=== PATIENT | male | born 1970 | race African-American/Black ===

== ENCOUNTER 2018-01-26 05:59 | Outpatient (CLI) | payer OTHER ==
[~2018-01-26] VITALS: Ht 175.3 cm; Wt 106.6 kg
[~2018-01-26 05:59] MED LIST: LISI5TAB PO
[2018-01-26] MEDS ORDERED: TRAM50TA2 PO (16:04)
[2018-01-26] MEDS ORDERED: GABA-488 PO (16:04)
== END 2018-01-26 16:07 ==
LOC: PREOP 05:59
PROVIDERS: ATTEND Surgery
DX: Z01.818 Encounter for other preprocedural examination (principal); Z12.11 Encounter for screening for malignant neoplasm of colon

== ENCOUNTER 2018-02-05 11:24 | Day surgery (SDC) | payer OTHER ==
[~2018-02-05 11:24] MED LIST changes: +GABA-488 PO; +TRAM50TA2 PO
--- OUTSIDE RECORDS SUMMARY | 2018-02-05 11:29 | XMS REPORT ---
Author Author PJ Funk Organization [facility] Address [address] [place] [address] Care Team Providers Care Graphics Production Specialist Name Role Phone Good PJ Unavailable PROBLEMS Type Condition ICD9-CM Code ZTV81-UN Code Onset Dates Condition Status SNOMED Code Problem Tobacco dependence F17.200 Active 35527149 Problem Chronic pain G89.29 Active 56135271 Problem Bilateral headaches R51 Active 743070924 Problem IBS (irritable bowel syndrome) K58.9 Active 20563280 Problem Rectal irritation K62.89 Active 54282808 Problem Herniation of intervertebral disc between L4 and L5 M51.26 Active 596234085 Problem Depression F32.9 Active 64141380 ALLERGIES Substance Reaction Event Type Date Status Codeine Unknown Drug Allergy Apr, Active ENCOUNTERS Encounter Location Date Diagnosis [facility] [address] [address] Dec, Chronic pain G89.29 [facility] [id number] [place] [address]77- [address] Dec, [facility] [id number] [place] [address] 27145- 3[address] Dec, Chronic pain G89.29 [facility] [id number] [place] [address]231- 4160 Nov, Chronic pain G89.29 [facility] [address] [address] Nov, [facility] [address] [address] Nov, IBS (irritable bowel syndrome) K58.9 ; Rectal irritation K62.89 and Chronic pain G89.29 [facility] [address] [address] Oct, Chronic pain G89.29 and IBS (irritable bowel syndrome) K58.9 [facility] [id number] [place] [address] 64952- 3684 Sep, Chronic pain G89.29 [facility] [id number] [place] [address]51- 69[address] Sep, Chronic pain G89.29 [facility] [id number] [place] [address]- [address] Aug, Chronic pain G89.29 [facility] [id number] [place] [address] 90862- 44[address] Jul, Chronic pain G89.29 [facility] [id number] [place] [address]14- [address] Jun, Chronic pain G89.29 [facility] [id number] [place] [address]- 98[address] May, Herniation of intervertebral disc between L4 and L5 M51.26 and Over weight E66.3 [place] [id number] [place] [address]- 1152 Apr, Over weight E66.3 [facility] [id number] [place] [address] 01329- [address] Apr, IBS (irritable bowel syndrome) K58.9 ; Depression F32.9 ; Herniation of intervertebral disc between L4 and L5 M51.26 and Bilateral headaches R51 [facility] [address] [address] Apr, [facility] [id number] [place] [address] 80307- 9[address] Apr, [facility] [address] [address] Dec, Herniation of intervertebral disc between L4 and L5 M51.26 and Depression F32.9 [facility] [id number] [place] [address]00- [address] Nov, Herniation of intervertebral disc between L4 and L5 M51.26 and IBS (irritable bowel syndrome) K58.9 [facility] [id number] [place] [address] 08476- 9[address] Oct, [facility] [address] [address] Aug, Physical exam Z00.00 ; IBS (irritable bowel syndrome) K58.9 ; Depression F32.9 and Herniation of intervertebral disc between L4 and L5 M51.26 [place] [place] [id number] [place] [address] 50112- 5708 Aug, Depression F32.9 [place] [address] [address] Jul, [facility] [address] [address] Jun, IBS (irritable bowel syndrome) K58.9 ; Depression F32.9 ; Herniation of intervertebral disc between L4 and L5 M51.26 and Bilateral headaches R51 [facility] [id number] [place] [address] 43270- 5[address] March, Chronic pain G89.29 [facility] [id number] [place] [address] 24424- 4747 Jan, Chronic pain G89.29 [facility] [id number] [place] [address] 23162- 07[address] Jan, [facility] [address] [address] Jan, [facility] [id number] [place] [address] 76472- 4183 Dec, IBS (irritable bowel syndrome) K58.9 ; Depression F32.9 and Herniation of intervertebral disc between L4 and L5 M51.26 [facility] [address] [address] Dec, [facility] [id number] [place] [address] 18032- 3945 Dec, [facility] [id number] [place] [address] 13087- 6705 Dec, [facility] [id number] [place] [address] 66699- 0976 Dec, [facility] [id number] [place] [address] 21062- 0707 Nov, [facility] [id number] [place] [address] 22990- 4390 Nov, [facility] [id number] [place] [address] 48532- [address] Nov, [facility] [id number] [place] [address] 85061- 4557 Nov, Heavy tobacco smoker >10 cigarettes per day F17.210 [facility] [id number] [place] [address] 53550- 3[address] Nov, Chronic pain G89.29 [facility] [id number] [place] [address] 77972- 2877 Nov, [facility] [id number] [place] [address] 30037- 8480 Oct, [facility] [address] [place] [address] 46658- 4611 Oct, [facility] [id number] [place] [address] 48779- 2892 Oct, Pilonidal cyst without mention of abscess 685.1 ; IBS ( irritable bowel syndrome) K58.9 ; Rectal irritation K62.89 and Depression F32.9 [facility] [id number] [place] [address] 52740- 9807 Oct, [facility] [address] [address] Sep, [facility] [id number] [place] [address] 942413- 8414 Sep, [facility] [id number] [place] [address] 008546- 5242 Sep, IBS (irritable bowel syndrome) K58.9 and Rectal irritation K62.89 [facility] [id number] [place] [address] 77486- [address] Jan, [facility] [id number] [place] [address] 23942- 9718 Jan, [facility] [id number] [place] [address] 25613- 9012 Dec, [facility] [id number] [place] [address] 26458- 7663 Dec, [facility] [id number] [place] [address] 64695- 9250 Dec, [facility] [id number] [place] [address] 05692- 5064 Nov, [facility] [id number] [place] [address] 68790- 6375 Aug, IMMUNIZATIONS No Known Immunizations SOCIAL HISTORY Never Assessed REASON FOR VISIT Pain management (chronic)_ PT says today is just a normal check up, he has concerns because since he stopped smoking he cant seem to stop eating and is gaining weight(8 months or so)- Fatimah VILLATORO PLAN OF CARE Activity Details Follow Up 3 Months Reason:ibs, htn, depresioin VITAL SIGNS Height 70 in 2017-04-24 Weight 236.8 lbs 2017-04-24 Temperature 97.5 degrees Fahrenheit 2017-04-24 Heart Rate 62 bpm 2017-04-24 Respiratory Rate 18 2017-04-24 BMI 33.97 kg/m2 2017-04-24 Blood pressure systolic 124 mmHg 2017-04-24 Blood pressure diastolic 78 mmHg 2017-04-24 MEDICATIONS Medication Instructions Dosage Frequency Start Date End Date Duration Status Bentyl 20 MG Orally Four times a day 1 tablet 6h Active BuPROPion HCl ER (SR) 150 MG TAKE TWO TABLETS BY MOUTH ONCE DAILY Active Tramadol HCl 50 mg Orally 3 times a day 1 tablet as needed 8h Active Gabapentin 300 MG Orally 2 times a day 1 capsule 12h Active Wellbutrin SR 300 Orally Once a day 1 tablet 24h Nov, 30 days Active Lomotil 2.5-0.025 MG Orally Four times a day 1 tablet as needed 6h Dec, Active RESULTS No Results PROCEDURES No Known procedures INSTRUCTIONS MEDICATIONS ADMINISTERED No Known Medications MEDICAL (GENERAL) HISTORY Type Description Date Medical History Irritable bowel syndrome without diarrhea Medical History Hypertension Surgical History bilat knee replacement 2008 Surgical History anal fissure 2006 Surgical History appendectomy 2006 Surgical History inguinal hernia repair 1988
--- OUTSIDE RECORDS SUMMARY | 2018-02-05 11:29 | XMS REPORT ---
Author HERBERT Aragon Organization [employer] Address Unknown Phone Unavailable Care Team Providers Care Surgery Assistant Name Role Phone HERBERT MONTOYA CP Unavailable Allergies No Known Allergies Problems Problem Type Condition Code Onset Dates Condition Status Problem IBS (irritable bowel syndrome) K58.9 Active Problem Rectal irritation K62.89 Active Problem Depression F32.9 Active Problem Cellulitis and abscess of unspecified site 682.9 Active Problem Pilonidal cyst without mention of abscess 685.1 Active Medications Medication Code System Code Instructions Start Date End Date Status Dosage Anusol-HC [facility] [address]-03 25 MG Rectal Twice a day Oct 24, 2015 Dec 05, 2015 1 suppository Results No Known Results Summary Purpose [employer] Submission
--- OUTSIDE RECORDS SUMMARY | 2018-02-05 11:29 | XMS REPORT ---
Author PJ Yee Organization [employer] Address Unknown Phone Unavailable Care Team Providers Care Printer'S Assistant Name Role Phone PJ TORRES CP Unavailable Allergies No Known Allergies Problems Problem Type Condition Code Onset Dates Condition Status Problem IBS (irritable bowel syndrome) K58.9 Active Problem Rectal irritation K62.89 Active Problem Depression F32.9 Active Problem Tobacco dependence F17.200 Active Problem Cellulitis and abscess of unspecified site 682.9 Active Problem Pilonidal cyst without mention of abscess 685.1 Active Medications Medication Code System Code Instructions Start Date End Date Status Dosage Bentyl [facility] [address]-88 20 MG Orally Four times a day 1 tablet Results No Known Results Summary Purpose [employer] Submission
--- OUTSIDE RECORDS SUMMARY | 2018-02-05 11:29 | XMS REPORT ---
Author PJ Yee [facility] [employer] Address Unknown Phone Unavailable Care Team Providers Care Rand Maker Name Role Phone PJ TORRES CP Unavailable Allergies, Adverse Reactions, Alerts Substance Reaction Event Type Codeine Info Not Available Drug Allergy Problems Problem Type Condition Code Onset Dates Condition Status Assessment IBS (irritable bowel syndrome) K58.9 Active Problem Tobacco dependence F17.200 Active Assessment Physical exam Z00.00 Active Assessment Herniation of intervertebral disc between L4 and L5 M51.26 Active Assessment Depression F32.9 Active Problem Herniation of intervertebral disc between L4 and L5 M51.26 Active Problem Depression F32.9 Active Problem Bilateral headaches R51 Active Problem Cellulitis and abscess of unspecified site 682.9 Active Problem Pilonidal cyst without mention of abscess 685.1 Active Problem IBS (irritable bowel syndrome) K58.9 Active Problem Rectal irritation K62.89 Active Medications Medication Code System Code Instructions Start Date End Date Status Dosage Gabapentin [facility] 65796117729 300 MG Orally 2 times a day 1 capsule Lomotil [facility] [address]-73 2.5-0.025 MG Orally Four times a day January 18, 2016 1 tablet as needed Cyclobenzaprine HCl [facility] [address]-11 10 mg Orally at hs Jun 27, 2016 Sep 25, 2016 1 tablet Tramadol HCl [facility] [address]-54 50 mg Orally 3 times a day 1 tablet as needed BuPROPion HCl (SR) [facility] 29926247295 150 MG TAKE TWO TABLETS BY MOUTH ONCE DAILY Bentyl [facility] 72782683684 20 MG Orally Four times a day 1 tablet Procedures Procedure Coding System Code Date VISUAL ACUITY SCREEN CPT-4 32759 Aug 29, 2016 Office Visit, Est Pt., Level 4 CPT-4 53560 Aug 29, 2016 AUDIOMETRY-SCREEN CPT-4 72022 Aug 29, 2016 Vital Signs Date/Time: Aug 29, 2016 Cardiac Monitoring Heart Rate 80 bpm Weight 218.8 lbs Height 70 in Hearing Comments:Passed whisper test on both ears. P / L BMI 31.39 Index Blood Pressure Diastolic 88 mmHg Blood Pressure Systolic 120 mmHg Results No Known Results Summary Purpose [employer] Submission
--- OUTSIDE RECORDS SUMMARY | 2018-02-05 11:29 | XMS REPORT ---
Author PJ Yee [facility] [employer] Address Unknown Phone Unavailable Care Team Providers Care Car Mechanic Helper Name Role Phone PJ TORRES CP Unavailable Allergies No Known Allergies Problems Problem Type Condition Code Onset Dates Condition Status Problem Rectal irritation K62.89 Active Problem Cellulitis and abscess of unspecified site 682.9 Active Problem IBS (irritable bowel syndrome) K58.9 Active Problem Pilonidal cyst without mention of abscess 685.1 Active Medications Medication Code System Code Instructions Start Date End Date Status Dosage Tramadol HCl [facility] [address]-42 50 MG Orally every 6 hrs 1 tablet as needed Results No Known Results Summary Purpose [employer] Submission
--- OUTSIDE RECORDS SUMMARY | 2018-02-05 11:30 | XMS REPORT ---
Author PJ Yee [facility] [employer] Address Unknown Phone Unavailable Care Team Providers Care Goodwill Representative Name Role Phone PJ TORRES CP Unavailable Allergies No Known Allergies Problems Problem Type Condition Code Onset Dates Condition Status Problem IBS (irritable bowel syndrome) K58.9 Active Problem Rectal irritation K62.89 Active Problem Depression F32.9 Active Assessment Chronic pain G89.29 Active Problem Cellulitis and abscess of unspecified site 682.9 Active Problem Pilonidal cyst without mention of abscess 685.1 Active Medications No Known Medications Procedures Procedure Coding System Code Date No Charge CPT-4 67039 Nov 09, 2015 Results No Known Results Summary Purpose [employer] Submission
--- OUTSIDE RECORDS SUMMARY | 2018-02-05 11:30 | XMS REPORT ---
Author PJ Yee [facility] [employer] Address Unknown Phone Unavailable Care Team Providers Care Legal Paraprofessional Name Role Phone PJ TORRES Unavailable Allergies No Known Allergies Problems Problem [...] Instructions Start Date End Date Status Dosage Wellbutrin SR [facility] [address]-72 300 Orally Once a day Nov 14, 2015 1 tablet Results No Known Results Summary Purpose [employer] Submission
--- OUTSIDE RECORDS SUMMARY | 2018-02-05 11:30 | XMS REPORT ---
Author Author PJ TORRES Organization [facility] Address [address] [place] [address] Care Team Providers Care Healthcare Administrative Assistant Name Role Phone PJ TORRES Unavailable PROBLEMS Type Condition ICD9-CM Code VAM16-WB Code Onset Dates Condition Status SNOMED Code Problem Tobacco dependence F17.200 Active 25131890 Problem Chronic pain G89.29 Active 04203610 Problem Bilateral headaches R51 Active 047214612 Problem IBS (irritable bowel syndrome) K58.9 Active 10582715 Problem Rectal irritation K62.89 Active 08424664 Problem Herniation of intervertebral disc between L4 and L5 M51.26 Active 447991309 Problem Depression F32.9 Active 51381449 ALLERGIES No Information SOCIAL HISTORY Never Assessed PLAN OF CARE VITAL SIGNS MEDICATIONS Medication Instructions Dosage Frequency Start Date End Date Duration Status Gabapentin 300 MG Orally 2 times a day 1 capsule 12h 30 Active Tramadol HCl 50 mg Orally 3 times a day 1 tablet as needed 8h 28 days Active RESULTS No Results PROCEDURES No Known procedures IMMUNIZATIONS No Known Immunizations MEDICAL (GENERAL) HISTORY Type Description Date Medical History Irritable bowel syndrome without diarrhea Medical History Hypertension Surgical History bilat knee replacement 2008 Surgical History anal fissure 2006 Surgical History appendectomy 2006 Surgical History inguinal hernia repair 1988
--- OUTSIDE RECORDS SUMMARY | 2018-02-05 11:30 | XMS REPORT ---
Author PJ Yee [facility] [employer] Address Unknown Phone Unavailable Care Team Providers Care Induction Machine Setter Name Role Phone PJ TORRES CP Unavailable Allergies, Adverse Reactions, Alerts Substance Reaction Event Type Codeine Info Not Available Drug Allergy Problems Problem Type Condition Code Onset Dates Condition Status Assessment Rectal irritation K62.89 Active Assessment Depression F32.9 Active Problem IBS (irritable bowel syndrome) K58.9 Active Problem Rectal irritation K62.89 Active Problem Depression F32.9 Active Assessment Pilonidal cyst without mention of abscess 685.1 Active Assessment IBS (irritable bowel syndrome) K58.9 Active Problem Cellulitis and abscess of unspecified site 682.9 Active Problem Pilonidal cyst without mention of abscess 685.1 Active Medications Medication Code System Code Instructions Start Date End Date Status Dosage Flagyl [facility] [address]-41 500 MG Orally every 8 hrs Oct 19, 2015 Oct 26, 2015 1 tablet Bentyl [facility] [address]-93 20 MG Orally Four times a day 1 tablet Lisinopril [facility] [address]-56 5 mg Nov 25, 2012 take 1 tablet (5 mg ) by oral route once daily Tylenol [facility] [address]-07 325 MG Orally every 6 hrs 1 tablet as needed Tramadol HCl [facility] [address]-78 50 MG Orally every 6 hrs 1 tablet as needed Celexa [facility] [address]-34 20 MG Orally Once a day Oct 19, 2015 1 tablet Anusol-HC [facility] [address]-66 2.5 % Rectal Twice a day Oct 19, 2015December 1 application to affected area Procedures Procedure Coding System Code Date COMPREHEN METABOLIC PANEL CPT-4 51566 Oct 19, 2015 ASSAY THYROID STIM HORMONE CPT-4 30512 Oct 19, 2015 COMPLETE CBC W/AUTO DIFF WBC CPT-4 51425 Oct 19, 2015 URINALYSIS, AUTO, W/O SCOPE CPT-4 95140 Oct 19, 2015 Office Visit, Est Pt., Level 4 CPT-4 65253 Oct 19, 2015 VENIPUNCT, ROUTINE* CPT-4 65757 Oct 19, 2015 Vital Signs Date/Time: Oct 19, 2015 Temperature 96.2 F Weight 198.8 lbs Height 69 in BMI 29.35 Index Blood Pressure Diastolic 80 mmHg Blood Pressure Systolic 130 mmHg Cardiac Monitoring Heart Rate 78 bpm Results Name Result Date Reference Range Unit Abnormality Flag TSH ----TSH 1.800 [id number] 0.450-4.500 uIU/mL CBC ----Basos 1 83726181 % ----MCV 85 42209809 79-97 fL ----Hematocrit 39.4 71409253 37.5-51.0 % ----Eos 3 49776505 % ----MCHC 32.2 23359399 31.5-35.7 g/dL ----Monocytes 5 20151019 % ----MCH 27.3 19106268 26.6-33.0 pg ----Lymphs 44 37432487 % ----Eos (Absolute) 0.2 29054121 0.0-0.4 x10E3/uL ----WBC 9.1 56804096 3.4-10.8 x10E3/uL ----Monocytes(Absolute) 0.5 62593350 0.1-0.9 x10E3/uL ----Lymphs (Absolute) 4.0 90021582 0.7-3.1 x10E3/uL H ----Hemoglobin 12.7 17259782 12.6-17.7 g/dL ----Neutrophils (Absolute) 4.3 73221572 1.4-7.0 x10E3/uL ----RBC 4.66 57953947 4.14-5.80 x10E6/uL ----Immature Grans (Abs) 0.0 04696980 0.0-0.1 x10E3/uL ----Immature Granulocytes 0 62533014 % ----Neutrophils 47 98159089 % ----Baso (Absolute) 0.1 80330744 0.0-0.2 x10E3/uL ----RDW 14.1 99688000 12.3-15.4 % ----Platelets 490 20151019 150-379 x10E3/uL H UA LONG DIP (IN HOUSE) ----LIZETT Negative 20151019 ----NIT Negative 20151019 ----Exp date [id number] ----Lot # [id number] ----SG >=1.030 20151019 ----KET Negative 20151019 ----LEE Negative 20151019 ----GLU Negative 20151019 ----Odor Slight 20151019 ----pH 5.5 20151019 ----BLO Negative 20151019 ----URO 2.0 E.U./dL 20151019 ----Protein Negative 20151019 ----Lot # [id number] ----Exp date [id number] ----Clarity Clear 20151019 ----Color [place] [id number] ROUTINE VENIPUNCTURE CMP ----Potassium, Serum 4.3 20151019 3.5-5.2 mmol/L ----Sodium, Serum 141 20151019 134-144 mmol/L ----BUN/Creatinine Ratio 6 20151019 9-20 L ----eGFR If Africn Am 101 [id number] >59 mL/min/1.73 ----eGFR If NonAfricn Am 88 [id number] >59 mL/min/1.73 ----Creatinine, Serum 1.02 20151019 0.76-1.27 mg/dL ----BUN 6 20151019 6-24 mg/dL ----Glucose, Serum 79 20151019 65-99 mg/dL ----AST (SGOT) 13 20151019 0-40 IU/L ----Globulin, Total 2.7 20151019 1.5-4.5 g/dL ----ALT (SGPT) 6 20151019 0-44 IU/L ----A/G Ratio 1.5 20151019 1.1-2.5 ----Bilirubin, Total 0.6 20151019 0.0-1.2 mg/dL ----Alkaline Phosphatase, S 58 20151019 39-117 IU/L ----Carbon Dioxide, Total 28 36293516 18-29 mmol/L ----Calcium, Serum 9.2 20151019 8.7-10.2 mg/dL ----Protein, Total, Serum 6.7 20151019 6.0-8.5 g/dL ----Albumin, Serum 4.0 20151019 3.5-5.5 g/dL ----Chloride, Serum 99 20151019 97-108 mmol/L Summary Purpose eClinicalWorks Submission
--- OUTSIDE RECORDS SUMMARY | 2018-02-05 11:30 | XMS REPORT ---
Author PJ Yee [facility] [employer] Address Unknown Phone Unavailable Care Team Providers Care Qi Specialist Name Role Phone PJ TORRES CP Unavailable [...] Date Status Dosage Tramadol HCl [facility] [address]-00 50 MG Orally every 6 hrs 1 tablet as needed Results No Known Results Summary Purpose [employer]ClinicalWorks Submission
--- OUTSIDE RECORDS SUMMARY | 2018-02-05 11:30 | XMS REPORT ---
Author PJ Yee Organization [employer] Address Unknown Phone Unavailable Care Team Providers Care External Grinder Name Role Phone PJ TORRES CP Unavailable [...] Date End Date Status Dosage Tramadol HCl [facility] [address]-49 50 MG Orally every 6 hrs 1 tablet as needed Results No Known Results Summary Purpose [employer] Submission
--- OUTSIDE RECORDS SUMMARY | 2018-02-05 11:30 | XMS REPORT ---
Author PJ Yee Organization [employer] Address Unknown Phone Unavailable Care Team Providers Care Stone Polisher Name Role Phone PJ TORRES CP Unavailable Allergies No Known Allergies Problems Problem Type Condition Code Onset Dates Condition Status Problem IBS (irritable bowel syndrome) K58.9 Active Problem Rectal irritation K62.89 Active Problem Depression F32.9 Active Problem Cellulitis and abscess of unspecified site 682.9 Active Problem Pilonidal cyst without mention of abscess 685.1 Active Medications No Known Medications Results No Known Results Summary Purpose [employer]ClinicalWorks Submission
--- OUTSIDE RECORDS SUMMARY | 2018-02-05 11:30 | XMS REPORT ---
Author PJ Yee [facility] [employer] Address Unknown Phone Unavailable Care Team Providers Care Audit Manager Name Role Phone PJ TORRES CP Unavailable [...]
--- OUTSIDE RECORDS SUMMARY | 2018-02-05 11:30 | XMS REPORT ---
Author PJ Yee Organization [employer] Address Unknown Phone Unavailable Care Team Providers Care Broadcast Operations Technician Name Role Phone PJ TORRES CP Unavailable Allergies, Adverse Reactions, Alerts Substance Reaction Event Type Codeine Info Not Available Drug Allergy Problems Problem Type Condition Code Onset Dates Condition Status Assessment Depression F32.9 Active Problem Tobacco dependence F17.200 Active Assessment IBS (irritable bowel syndrome) K58.9 Active Assessment Bilateral headaches R51 Active Assessment Herniation of intervertebral disc between L4 and L5 M51.26 Active Problem Herniation of intervertebral disc between [...] Start Date End Date Status Dosage Gabapentin [facility] 23506283225 300 MG Orally 2 times a day 1 capsule Wellbutrin SR [facility] [address]-16 300 Orally Once a day Nov 14, 2015 1 tablet Lomotil [facility] [address]-62 2.5-0.025 MG Orally Four times a day January 18, 2016 1 tablet as needed Tramadol HCl [facility] [address]-54 50 mg Orally 3 times a day 1 tablet as needed Cyclobenzaprine HCl [facility] [address]-18 10 mg Orally at hs Jun 27, 2016 Sep 25, 2016 1 tablet Bentyl [facility] 83908180262 20 MG Orally Four times a day 1 tablet Procedures Procedure Coding System Code Date Office Visit, Est Pt., Level 4 CPT-4 58562 Jun 27, 2016 Vital Signs Date/Time: Jun 27, 2016 Cardiac Monitoring Heart Rate 76 bpm Weight 209.3 lbs Height 69 in BMI 30.90 Index Blood Pressure Diastolic 84 mmHg Blood Pressure Systolic 126 mmHg Results No Known Results Summary Purpose eClinicalWorks Submission
--- OUTSIDE RECORDS SUMMARY | 2018-02-05 11:30 | XMS REPORT ---
Author Author PJ TORRES Organization [facility] Address [address] [place] [address] Care Team Providers Care Pan Shaker Name Role Phone PJ TORRES Unavailable PROBLEMS Type Condition ICD9-CM Code MQS84-JT Code Onset Dates Condition Status SNOMED Code Problem Tobacco dependence F17.200 Active 80954362 Problem Chronic pain G89.29 Active 89963761 Problem Bilateral headaches R51 Active 001365282 Problem IBS (irritable bowel syndrome) K58.9 Active 98197522 Problem Rectal irritation K62.89 Active 02692472 Problem Herniation of intervertebral disc between L4 and L5 M51.26 Active 992461963 Problem Depression F32.9 Active 77152386 ALLERGIES Unknown Allergies SOCIAL HISTORY No smoking Hx information available PLAN OF CARE VITAL SIGNS MEDICATIONS Medication Instructions Dosage Frequency Start Date End Date Duration Status Amoxicillin 500 MG Orally 3 times a day 1 capsule 8h Oct, Oct, 10 day(s) Active RESULTS No Results PROCEDURES No Known procedures IMMUNIZATIONS No Known Immunizations
--- OUTSIDE RECORDS SUMMARY | 2018-02-05 11:30 | XMS REPORT ---
Author Author PJ Funk Organization [facility] Address [address] [place] [address] Care Team Providers Care Marble Setter Name Role Phone PJ Funk Unavailable PROBLEMS Type Condition ICD9-CM Code CLK15-DO Code Onset Dates Condition Status SNOMED Code Problem Tobacco dependence F17.200 Active 90191698 Problem Chronic pain G89.29 Active 26836612 Problem Bilateral headaches R51 Active 104530996 Problem IBS (irritable bowel syndrome) K58.9 Active 87365227 Problem Rectal irritation K62.89 Active 48933485 Problem Herniation of intervertebral disc between L4 and L5 M51.26 Active 666951721 Problem Depression F32.9 Active 80123697 ALLERGIES No Information ENCOUNTERS Encounter Location Date Diagnosis [facility] [id number] [place] [address]26- 1064 Dec, Chronic pain G89.29 [facility] [address] [address] Dec, [facility] [id number] [place] [address] 41471- 9623 Dec, Chronic pain G89.29 [facility] [id number] [place] [address] 01560- 7505 Nov, Chronic pain G89.29 [facility] [id number] [place] [address] 82330- 3721 Nov, [facility] [address] [address] Nov, IBS (irritable bowel syndrome) K58.9 ; Rectal irritation K62.89 and Chronic pain G89.29 [facility] [address] [address] Oct, Chronic pain G89.29 and IBS (irritable bowel syndrome) K58.9 [facility] [id number] [place] [address] 77912- 5965 Sep, Chronic pain G89.29 [facility] [id number] [place] [address] 53917- 7234 Sep, Chronic pain G89.29 [facility] [id number] [place] [address] 93677- 1726 Aug, Chronic pain G89.29 [facility] [id number] [place] [address] 86812- 8965 Jul, Chronic pain G89.29 [facility] [id number] [place] [address] 42997- 5884 Jun, Chronic pain G89.29 [facility] [id number] [place] [address] 10620- 2743 May, Herniation of intervertebral disc between L4 and L5 M51.26 and Over weight E66.3 [facility] [id number] [place] [address] 90221- 0032 Apr, Over weight E66.3 [facility] [id number] [place] [address] 90866- 2077 Apr, IBS (irritable bowel syndrome) K58.9 ; Depression F32.9 ; Herniation of intervertebral disc between L4 and L5 M51.26 and Bilateral headaches R51 [facility] [id number] [place] [address] 32610- 0614 Apr, [facility] [id number] [place] [address] 93650- 2797 Apr, [facility] [id number] [place] [address] 20893- 9714 10 Dec, 2016 Herniation of intervertebral disc between L4 and L5 M51.26 and Depression F32.9 [facility] [id number] [place] [address] 90872- 3375 Nov, Herniation of intervertebral disc between L4 and L5 M51.26 and IBS (irritable bowel syndrome) K58.9 [facility] [id number] [place] [address] 66206- 7570 Oct, [facility] [id number] [place] [address] 94144- 6895 Aug, Physical exam Z00.00 ; IBS (irritable bowel syndrome) K58.9 ; Depression F32.9 and Herniation of intervertebral disc between L4 and L5 M51.26 [address] [address] Aug, Depression F32.9 [place] [id number] [place] [address] 76119- 5302 Jul, [facility] [address] [address]- 0[address] Jun, IBS (irritable bowel syndrome) K58.9 ; Depression F32.9 ; Herniation of intervertebral disc between L4 and L5 M51.26 and Bilateral headaches R51 [place] [id number] [place] [address] 12536- 6260 March, Chronic pain G89.29 [facility] [id number] [place] [address] 87478- 3060 Jan, Chronic pain G89.29 [facility] [id number] [place] [address] 62328- 1168 Jan, [facility] [id number] [place] [address] 32651- 7316 Jan, [facility] [id number] [place] [address] 77447- 6769 Dec, IBS (irritable bowel syndrome) K58.9 ; Depression F32.9 and Herniation of intervertebral disc between L4 and L5 M51.26 [facility] [id number] [address] Dec, [facility] [id number] [place] [address] 94290- 8910 Dec, [facility] [id number] [place] [address] 72928- 4218 Dec, [facility] [id number] [place] [address] 50478- 5922 Dec, [facility] [id number] [place] [address] 72831- 2625 Nov, [facility] [id number] [place] [address] 69218- 3252 Nov, [facility] [id number] [place] [address] 40226- 6149 Nov, [facility] [id number] [place] [address] 68056- 8182 Nov, Heavy tobacco smoker >10 cigarettes per day F17.210 [facility] [id number] [place] [address] 62198- 1217 Nov, Chronic pain G89.29 [facility] [id number] [place] [address] 49979- 3906 Nov, [facility] [id number] [place] [address] Oct, [facility] [id number] [place] [address] 03894- 8006 Oct, [facility] [address] [place] [address] Oct, Pilonidal cyst without mention of abscess 685.1 ; IBS ( irritable bowel syndrome) K58.9 ; Rectal irritation K62.89 and Depression F32.9 [facility] [address] [place] [address] Oct, [facility] [address] [place] [address] Sep, [facility] [address] [place] [address]- [address] 16 Sep, 2015 [facility] [address] [place] [address]- 1258 Sep, IBS (irritable bowel syndrome) K58.9 and Rectal irritation K62.89 [facility] [address] [place] [address]- [address] 14 Jan, 2015 [facility] [id number] [place] [address] 35004- 0107 Jan, [facility] [id number] [place] [address] 25894- 4888 Dec, [facility] [id number] [place] [address] 88723- 8005 Dec, [facility] [address] [place] [address]- 1463 Dec, [facility] [id number] [place] [address]- [address] Nov, [facility] [id number] [place] [address]- 7[address] Aug, IMMUNIZATIONS No Known Immunizations SOCIAL HISTORY Never Assessed REASON FOR VISIT Weight loss PLAN OF CARE VITAL SIGNS MEDICATIONS Medication Instructions Dosage Frequency Start Date End Date Duration Status Contrave 8-90 MG Orally Twice a day 1 tablets 12h Apr, Active RESULTS No Results PROCEDURES No Known procedures INSTRUCTIONS MEDICATIONS ADMINISTERED No Known Medications MEDICAL (GENERAL) HISTORY Type Description Date Medical History Irritable bowel syndrome without diarrhea Medical History Hypertension Surgical History bilat knee replacement 2008 Surgical History anal fissure 2006 Surgical History appendectomy 2006 Surgical History inguinal hernia repair 1988
--- OUTSIDE RECORDS SUMMARY | 2018-02-05 11:30 | XMS REPORT ---
Author PJ Yee Organization [employer] Address Unknown Phone Unavailable Care Team Providers Care Grinder Name Role Phone PJ TORRES CP Unavailable Allergies, Adverse Reactions, Alerts Substance Reaction Event Type Codeine Info Not Available Drug Allergy Problems Problem Type Condition Code Onset Dates Condition Status Problem Rectal irritation K62.89 Active Problem Cellulitis and abscess of unspecified site 682.9 Active Problem IBS (irritable bowel syndrome) K58.9 Active Assessment Rectal irritation K62.89 Active Problem Pilonidal cyst without mention of abscess 685.1 Active Assessment IBS (irritable bowel syndrome) K58.9 Active Medications Medication Code System Code Instructions Start Date End Date Status Dosage Tylenol [facility] [address]-56 325 MG Orally every 6 hrs 1 tablet as needed Bentyl [facility] [address]-97 20 MG Orally Four times a day 1 tablet Tramadol HCl [facility] [address]-61 50 MG Orally every 6 hrs 1 tablet as needed PredniSONE [facility] [address]-52 20 MG Orally tid x 3, bid x 3, and daily x 3 Sep 14, 2015 Sep 23, 2015 1 tablet with food or milk Anusol-HC [facility] [address]-69 25 MG Rectal Twice a day Sep 14, 2015 Sep 28, 2015 1 suppository Lisinopril [facility] [address]-12 5 mg Nov 25, 2012 take 1 tablet (5 mg ) by oral route once daily Procedures Procedure Coding System Code Date Office Visit, Est Pt., Level 3 CPT-4 71013 Sep 14, 2015 Vital Signs Date/Time: Sep 14, 2015 Temperature 98.0 F Weight 188 lbs Height 69 in BMI 27.76 Index Blood Pressure Diastolic 82 mmHg Blood Pressure Systolic 138 mmHg Cardiac Monitoring Heart Rate 68 bpm Results No Known Results Summary Purpose eClinicalWorks Submission
--- OUTSIDE RECORDS SUMMARY | 2018-02-05 11:31 | XMS REPORT ---
Author PJ Yee [facility] [employer] Address Unknown Phone Unavailable Care Team Providers Care Microsoft Dynamics Ax Consultant Name Role Phone PJ TORRES CP Unavailable [...] Date End [place] D[place] [address]-20 150 MG Orally Once a day Nov 14, 2015 1 tablet Wellbutrin SR NDC [address]-50 150 MG Orally Once a day Nov 14, 2015 1 tablet Results No Known Results Summary Purpose eClinicalWorks Submission
--- OUTSIDE RECORDS SUMMARY | 2018-02-05 11:31 | XMS REPORT ---
Author Author PJ TORRES Organization [facility] Address [address] [place] [address] Care Team Providers Care Army Helicopter Pilot Name Role Phone PJ TORRES Unavailable PROBLEMS Type Condition ICD9-CM Code VOW98-OF Code Onset Dates Condition Status SNOMED Code Problem Tobacco dependence F17.200 Active 15873045 Problem Chronic pain G89.29 Active 57024185 Problem Bilateral headaches R51 Active 715946546 Problem IBS (irritable bowel syndrome) K58.9 Active 57797122 Problem Rectal irritation K62.89 Active 25452818 Problem Herniation of intervertebral disc between L4 and L5 M51.26 Active 906709386 Problem Depression F32.9 Active 73831092 ALLERGIES Unknown Allergies SOCIAL HISTORY No smoking Hx information available PLAN OF CARE VITAL SIGNS MEDICATIONS Medication Instructions Dosage Frequency Start Date End Date Duration Status Tramadol HCl 50 mg Orally 3 times a day 1 tablet as needed 8h Active Gabapentin 300 MG Orally 2 times a day 1 capsule 12h 30 Active Lomotil 2.5-0.025 MG Orally Four times a day 1 tablet as needed 6h Dec, Active BuPROPion HCl (SR) 150 MG TAKE TWO TABLETS BY MOUTH ONCE DAILY 30 Active RESULTS No Results PROCEDURES No Known procedures IMMUNIZATIONS No Known Immunizations
--- OUTSIDE RECORDS SUMMARY | 2018-02-05 11:31 | XMS REPORT ---
Author Author PJ TORRES Organization [employer] Address Unknown Phone Unavailable Care Team Providers Care Dehydrating Press Operator Name Role Phone PJ TORRES CP Unavailable Allergies No Known Allergies Problems Problem Type Condition Code Onset Dates Condition Status Problem IBS (irritable bowel syndrome) K58.9 Active Problem Rectal irritation K62.89 Active Problem Depression F32.9 Active Assessment Heavy tobacco smoker >10 cigarettes per day F17.210 Active Problem Cellulitis and abscess of unspecified site 682.9 Active Problem Pilonidal cyst without mention of abscess 685.1 Active Medications Medication Code System Code Instructions Start Date End Date Status Dosage Chantix Starting Month Estrada [facility] [address]-19 0.5 MG X 11 & 1 MG X 42 Orally Nov 12, 2015 as directed Results No Known Results Summary Purpose eClinicalWorks Submission
--- OUTSIDE RECORDS SUMMARY | 2018-02-05 11:31 | XMS REPORT ---
Author Author PJ TORRES Organization [facility] Address [address] [place] [address] Care Team Providers Care Slitter Helper Name Role Phone PJ TORRES Unavailable PROBLEMS Type Condition ICD9-CM Code FWF74-ZD Code Onset Dates Condition Status SNOMED Code Problem Tobacco dependence F17.200 Active 94592080 Problem Chronic pain G89.29 Active 52267993 Problem Bilateral headaches R51 Active 577087251 Problem IBS (irritable bowel syndrome) K58.9 Active 77360826 Problem Rectal irritation K62.89 Active 51548931 Problem Herniation of intervertebral disc between L4 and L5 M51.26 Active 579535272 Problem Depression F32.9 Active 61143732 ALLERGIES No Information SOCIAL HISTORY Never Assessed PLAN OF CARE VITAL SIGNS MEDICATIONS Medication Instructions Dosage Frequency Start Date End Date Duration Status Wellbutrin SR 300 Orally Once a day 1 tablet 24h Nov, 30 days Active Tramadol HCl 50 mg Orally 3 times a day 1 tablet as needed 8h Active RESULTS No Results PROCEDURES No Known procedures IMMUNIZATIONS No Known Immunizations MEDICAL (GENERAL) HISTORY Type Description Date Medical History Irritable bowel syndrome without diarrhea Medical History Hypertension Surgical History bilat knee replacement 2008 Surgical History anal fissure 2006 Surgical History appendectomy 2006 Surgical History inguinal hernia repair 1988
--- OUTSIDE RECORDS SUMMARY | 2018-02-05 11:31 | XMS REPORT ---
Author Author PJ TORRES Organization [facility] Address [address] [place] [address] Care Team Providers Care Scalp Treatment Specialist Name Role Phone PJ TORRES Unavailable PROBLEMS Type Condition ICD9-CM Code TZK84-FG Code Onset Dates Condition Status SNOMED Code Problem Pilonidal cyst without mention of abscess 685.1 Active 09234625 Problem Tobacco dependence F17.200 Active 27871113 Problem Bilateral headaches R51 Active 881143967 Problem Herniation of intervertebral disc between L4 and L5 M51.26 Active 499201537 Problem Rectal irritation K62.89 Active 96242464 Problem Cellulitis and abscess of unspecified site 682.9 Active 884313445 Problem Depression F32.9 Active 45902890 Problem IBS (irritable bowel syndrome) K58.9 Active 13421092 ALLERGIES No Known Allergies SOCIAL HISTORY No smoking Hx information available PLAN OF CARE VITAL SIGNS MEDICATIONS Medication Instructions Dosage Frequency Start Date End Date Duration Status Tramadol HCl 50 mg Orally 3 times a day 1 tablet as needed 8h Active RESULTS No Results PROCEDURES No Known procedures IMMUNIZATIONS No Known Immunizations
--- OUTSIDE RECORDS SUMMARY | 2018-02-05 11:31 | XMS REPORT ---
Author Author PJ TORRES Organization [employer] Address Unknown Phone Unavailable Care Team Providers Care Manipulative Therapy Specialist Name Role Phone PJ TORRES CP Unavailable Allergies No Known Allergies Problems Problem Type Condition Code Onset Dates Condition Status Assessment Chronic pain G89.29 Active Problem Depression F32.9 Active Problem IBS (irritable bowel syndrome) K58.9 Active Problem Herniation of intervertebral disc between L4 and L5 M51.26 Active Problem Pilonidal cyst without mention of abscess 685.1 Active Problem Tobacco dependence F17.200 Active Problem Rectal irritation K62.89 Active Problem Cellulitis and abscess of unspecified site 682.9 Active Medications Medication Code System Code Instructions Start Date End Date Status Dosage Tramadol HCl [facility] [address]-87 50 mg Orally 3 times a day 1 tablet as needed Results No Known Results Summary Purpose eClinicalWorks Submission
--- OUTSIDE RECORDS SUMMARY | 2018-02-05 11:31 | XMS REPORT ---
Author PJ Yee [facility] e[employer] Address Unknown Phone Unavailable Care Team Providers Care Wet End Helper Name Role Phone PJ TORRES CP [...] Date End Date Status Dosage Tramadol HCl [facility] [address]-09 50 MG Orally every 6 hrs 1 tablet as needed Results No Known Results Summary Purpose eClinicalWorks Submission
--- OUTSIDE RECORDS SUMMARY | 2018-02-05 11:31 | XMS REPORT ---
Author Author PJ TORRES Organization [facility] Address [address] [place] [address] Care Team Providers Care Tile Grader Name Role Phone PJ TORRES Unavailable PROBLEMS Type Condition ICD9-CM Code NVP18-DP Code Onset Dates Condition Status SNOMED Code Problem Tobacco dependence F17.200 Active 76296556 Problem Chronic pain G89.29 Active 89492410 Problem Bilateral headaches R51 Active 733972440 Problem IBS (irritable bowel syndrome) K58.9 Active 91277741 Problem Rectal irritation K62.89 Active 90837503 Problem Herniation of intervertebral disc between L4 and L5 M51.26 Active 113698550 Problem Depression F32.9 Active 13984642 ALLERGIES No Information SOCIAL HISTORY Never Assessed [...]
--- OUTSIDE RECORDS SUMMARY | 2018-02-05 11:31 | XMS REPORT | Continuity of Care Document ---
Author Author [facility] Address Unknown Phone Unavailable Allergies Active Description Code Type Severity Reaction Onset Reported/Identified Relationship to Patient Clinical Status Yes CODEINE Drug Allergy N/A N/A Yes codeine [id number] Drug Allergy Unknown N/A 12/11/2011 Yes Codeine Drug Allergy 11/25/2012 Medications Medication Packaging Start Date Stop Date Route Dosage Sig GENTAMICIN SULFATE ml 01/30/2016 OPHTHALMIC 10 four times each day Problems Date Dx Coded Attending Type Code Diagnosis Diagnosed By 09/01/2011 796.2 ELEVATED BLOOD PRESSURE READING WITHOUT DIAGNOSIS OF HYPERTENSION 09/01/2011 HERBERT MONTOYA DO 796.2 ELEVATED BLOOD PRESSURE READING WITHOUT DIAGNOSIS OF HYPERTENSION 11/25/2012 685.1 PILONIDAL CYST WITHOUT ABSCESS 11/25/2012 HERBERT MONTOYA DO 685.1 PILONIDAL CYST WITHOUT ABSCESS 12/13/2012 HERBERT MONTOYA DO 682.9 CELLULITIS AND ABSCESS OF UNSPECIFIED SITES Procedures Code Description Performed By Performed On Guilherme Sarmiento 11/25/2012 Results There is no data. Encounters ACCT No. Visit Date/Time Discharge Status Pt. Type Provider Facility Loc./Unit Complaint [id number] 12/13/2012 15:02:00 12/13/2012 23:59:59 [facility] Outpatient HERBERT MONTOYA DO [id number] 11/25/2012 10:30:00 11/25/2012 23:59:59 [facility] Outpatient [id number] 01/30/2016 10:55:49 Document Registration [id number] 01/30/2016 10:55:47 Document Registration [id number] 01/30/2016 10:55:45 Document Registration [id number] 01/30/2016 10:55:42 Document Registration [id number] 01/30/2016 10:55:41 Document Registration [id number] 01/30/2016 10:49:00 Document Registration [id number] 10/18/2015 06:22:08 Document Registration [id number] 12/17/2017 12:20:00 12/17/2017 23:59:59 [facility] Outpatient HERBERT MONTOYA DO [facility] [id number] 01/26/2018 05:59:00 01/26/2018 16:07:00 DIS Outpatient TREVA MCFARLAND DO [facility] PREOP COLONOSCOPY [id number] 02/05/2018 14:00:00 PEN Preadmit TREVA MCFARLAND DO [facility] ENDO RECTAL PAIN,HX POLYPS, DIARRHEA
--- OUTSIDE RECORDS SUMMARY | 2018-02-05 11:31 | XMS REPORT ---
Author PJ Yee Organization [employer] Address Unknown Phone Unavailable Care Team Providers Care Clinic Office Assistant Name Role Phone PJ TORRES CP [...] Date End Date Status Dosage Tramadol HCl [facility] [address]-09 50 MG Orally every 6 hrs 1 tablet as needed Results No Known Results Summary Purpose eClinicalWorks Submission
--- OUTSIDE RECORDS SUMMARY | 2018-02-05 11:31 | XMS REPORT ---
Author PJ Yee Organization [employer] Address Unknown Phone Unavailable Care Team Providers Care Auto Collision Repair Instructor Name Role Phone PJ TORRES CP Unavailable Allergies No Known Allergies Problems Problem Type Condition Code Onset Dates Condition Status Problem Tobacco dependence F17.200 Active Assessment Depression F32.9 Active Problem Herniation [...] Date End Date Status Dosage Wellbutrin [facility] [id number] 300 Orally Once a day Nov 14, 2015 1 tablet Results No Known Results Summary Purpose [employer] Submission
[2018-02-05] MEDS ORDERED: LACTATED RINGERS 1,000 ML IV STA (11:41)
[2018-02-05] MEDS ORDERED: MIDAZOLAM 2 MG/2 ML (VERSED) VIAL ONE (11:43)
[2018-02-05] MEDS ORDERED: proPOfol 200 MG/20 ML (DIPRIVAN) VIAL IV ONE ×2 (11:43→12:11)
[2018-02-05] MEDS ORDERED: LACTATED RINGERS 1,000 ML IV ONE (11:48)
--- NOTE | 2018-02-05 12:47 | Progress Note-Pre Operative ---
Pre-Operative Progress Note H&P Reviewed The H&P was reviewed, patient examined and no changes noted. Time Seen by Provider: 12:03 Date H&P Reviewed: Feb 05, 2018 Time H&P Reviewed: 11:51 Pre-Operative Diagnosis: Rectal pain, hx of polyps, hx of fissure and fistula TREVA MCFARLAND DO Feb 05, 2018 12:47
--- NOTE | 2018-02-05 12:48 | Progress Note-Post Operative ---
Post-Operative Progess Note Surgeon (s)/Prototype Technician (s) Surgeon TREVA MCFARLAND DO Prototype Technician: none Pre-Operative Diagnosis Rectal pain, hx of polyps, hx of fissure and fistula Post-Operative Diagnosis Colon Polyp Rectal stenosis Anal fistula Internal Hemorrhoids Procedure & Operative Findings Date of Procedure 02/05/18 Procedure Performed/Findings Colon with cold bx Anesthesia Type IV sedation by SHOE STICKS REPAIRER Estimated Blood Loss Estimated blood loss (mL): scant Specimens/Packing Specimens Removed sigmoid colon polyp TREVA MCFARLAND DO Feb 05, 2018 12:48
--- NOTE | 2018-02-05 12:50 | Endoscopy Discharge Instruct ---
Endo Procedure/Findings Findings 1.: Polyp 2.: Stricture 3.: Internal Hemorrhoids 4.: Other Findings (Anal fistula) Discharge Instructions - Activity: You might feel a little sleepy until tomorrow. This is due to the medicine you received to relax you. Until tomorrow, you should: NOT drive a car, operate machinery or power tools. NOT drink any alcoholic beverages. NOT make any important decisions or sign importortant papers. Do not return to work until tomorrow, unless otherwise instructed. Resume previous activities tomorrow. Diet: Start by taking liquids. If you tolerate liquids, advance to solid food. Notify Physician - If you experience excessive bleeding, unusual abdominal pain, fever, or chest pain, contact your doctor immediately. Follow-Up: - I have received and understand the above instructions and will call my doctor if I have any further questions. Patient Signature Date Nurse Signature Other (Relationship) TREVA MCFARLAND DO Feb 05, 2018 12:50
--- NOTE | 2018-02-05 14:01 | Anesthesia-General Post-Op ---
MAC Patient Condition Mental Status/LOC: Same as Preop Cardiovascular: Satisfactory Nausea/Vomiting: Absent Respiratory: Satisfactory Pain: Controlled Complications: Absent Post Op Complications Complications None Follow Up Care/Instructions Patient Instructions None needed. Anesthesiology Discharge Order Discharge Order Patient is doing well, no complaints, stable vital signs, no apparent adverse anesthesia problems. No complications reported per nursing. DANILO SPENCE CRNA Feb 05, 2018 14:01
--- NOTE | 2018-02-05 16:07 | OPERATIVE REPORT ---
DATE OF SERVICE: 02/05/2018 PREOPERATIVE DIAGNOSES: History of colon polyps, rectal pain, history of anal fissure. POSTOPERATIVE DIAGNOSES: 1. Sigmoid colon polyp. 2. Rectal stenosis. 3. Anal fistula. 4. Internal hemorrhoids. PROCEDURE: Colonoscopy with cold biopsy. SURGEON: Dr. Hernandez. SIDE FRAMER: None. ANESTHESIA: IV sedation by DCS ENGINEER. SPECIMEN: Sigmoid colon polyp biopsy. Rectal stricture biopsy. BLOOD LOSS: Scant. FLUIDS: Per anesthesia. POSTOPERATIVE CONDITION: Stable. INDICATION FOR PROCEDURE: The patient is a 47-year-old male, who has a history of colon polyps, rectal pain, possibly bleeding, history of fistulas and anal fissures, but states he never told he had Crohn's or any ulcerative colitis or inflammatory bowel disease. FINDINGS: The patient had a flat colon polyp in the sigmoid colon. He also had a rectal fistula just above the dentate line, found an anal fistula, took a picture of this and then as well found some internal hemorrhoids. PROCEDURE NOTE: After informed consent was obtained, the patient was brought to the endoscopy suite and placed in the left lateral decubitus position. He was administered IV sedation by the DCS ENGINEER, who then monitored his vital signs the entire time heart rate, blood pressure and pulse ox and the scope was inserted, pushed through all the way about 150 cm, able to get to the cecum, took a picture appendiceal orifice and then able to get into the terminal ileum. Terminal ileum looked normal. Denies any ulcerations or inflammation. The villi looked normal and then slowly withdrew the scope insufflating to look circumferentially monte looking at the cecum up the ascending colon to the hepatic flexure, then down the transverse colon, the splenic flexure, down the descending colon into the sigmoid and in sigmoid saw flat polyp, took a picture of this and then did a cold biopsy and then continued down into the rectum, retroflexed in the rectal vault, but while retroflexing really could not see the hemorrhoids because of the rectal stricture. Took a picture and then pulled through to the rectal stricture. Took a biopsy of the rectal stricture and then slowly continue to pull out and below saw a hole which looked like an opening to an anal fistula, also saw some internal hemorrhoids, took a picture of this and then removed the scope. The patient tolerated the procedure and he was recovered in the endoscopy suite. Job ID: [id number] DocumentID: [id number] Dictated Date: 02/05/2018 12:54:50 Floodplain Manager Date: 02/05/2018 16:06:49 Dictated By: TREVA HERNANDEZ DO
== END 2018-02-05 13:40 | disposition home or self-care (01) ==
LOC: ENDO 11:24
PROVIDERS: ATTEND Surgery
DX: D12.5 Benign neoplasm of sigmoid colon (principal); K62.4 Stenosis of anus and rectum; K60.3 Anal fistula; R19.7 Diarrhea, unspecified; K64.8 Other hemorrhoids; I10 Essential (primary) hypertension; Z87.891 Personal history of nicotine dependence

== ENCOUNTER → 2018-02-26 | Outpatient (CLI) | payer OTHER ==
[~2018-02-26] MED LIST changes: +CATHETER FLUSH 10 ML SYR IV PRN; +IOHEXOL 350 MG/ML 100 ML (OMNIPAQUE 350) VIAL IV ONE; +NS 250 ML (IVPB) BAG IV ONE; +RECEIVED CONTRAST (Hold Metformin) IV SCH
--- NOTE | 2018-02-26 13:06 | Diagnostic Imaging Report ---
PROCEDURE: CT pelvis with contrast. TECHNIQUE: Oral and intravenous contrast were administered with pelvic CT performed. INDICATION: Rectal stricture with constipation. Prior rectal fissure surgery. COMPARISON: 12/11/2011. FINDINGS: Uniform circumferential thickening of the distal one-third of the rectum extending into the anus is present. No perirectal or perianal fluid collection to indicate abscess. No fistulous tract is identified. CT lacks the contrast resolution to adequately assess for anal fissures. No free pelvic fluid. No pelvic or inguinal lymphadenopathy. No inguinal hernia or pelvic hernia. The prostate is normal in appearance. The urinary bladder is incompletely distended, which mildly limits evaluation. Distal aorta is normal in caliber. Normal regional skeleton. IMPRESSION: 1. No recurrent perirectal or perianal fistula. No evidence of abscess. 2. Please note that MRI would provide better contrast resolution to assess for potential anal fissures if this is of clinical concern. 3. No recurrent inguinal hernia. Dictated by: Dictated on workstation # [id number]
== END ==
LOC: RAD 11:22
PROVIDERS: ATTEND Surgery
DX: K62.4 Stenosis of anus and rectum (principal); K59.00 Constipation, unspecified
CPT/HCPCS: 72193

== ENCOUNTER → 2018-07-27 | Outpatient (CLI) | payer OTHER ==
[~2018-07-27] VITALS: Ht 175.3 cm; Wt 106.6 kg
[~2018-07-27] MED LIST changes: -CATHETER FLUSH 10 ML SYR IV PRN; +DICY20TA10 PO; +DIPH1TAB PO; -IOHEXOL 350 MG/ML 100 ML (OMNIPAQUE 350) VIAL IV ONE; -NS 250 ML (IVPB) BAG IV ONE; -RECEIVED CONTRAST (Hold Metformin) IV SCH
== END | disposition home or self-care (01) ==
LOC: PREOP 07-23 05:34
PROVIDERS: ATTEND Surgery
DX: Z01.818 Encounter for other preprocedural examination (principal)

== ENCOUNTER 2018-08-13 12:08 | Day surgery (SDC) | payer OTHER ==
[~2018-08-13] VITALS: Ht 175.3 cm; Wt 106.6 kg
[2018-08-13] MEDS ORDERED: LACTATED RINGERS 1,000 ML IV STA (12:16)
[2018-08-13 12:20] VITALS: BP 120/91
[2018-08-13] MEDS ORDERED: PROPOFOL INJECTION 50 ML IV ONE (12:21)
[2018-08-13] MEDS ORDERED: LACTATED RINGERS 1,000 ML IV ONE (12:29)
--- NOTE | 2018-08-13 12:40 | Progress Note-Pre Operative ---
Pre-Operative Progress Note H&P Reviewed The H&P was reviewed, patient examined and no changes noted. Time Seen by Provider: 12:37 Date H&P Reviewed: Aug 13, 2018 Time H&P Reviewed: 12:38 Pre-Operative Diagnosis: Rectal pain, rectal thickening TREVA MCFARLAND DO Aug 13, 2018 12:40
[2018-08-13] MEDS ORDERED: LISI2.5T PO (12:41)
[2018-08-13] MEDS ORDERED: MIDAZOLAM 5 MG/5 ML (VERSED) VIAL ONE (12:49)
[2018-08-13 13:30] VITALS: BP 113/80
[2018-08-13] MEDS ORDERED: METR500T PO (14:00)
[2018-08-13] MEDS ORDERED: CIPR500S3 PO (14:00)
--- NOTE | 2018-08-13 14:02 | Discharge Inst-Surgical ---
Discharge Inst-Surgical Depart Medication/Instructions New, Converted or Re-Newed RX: Transmitted to Pharmacy Patient Instructions Follow up Appt: Make appointment for 1 week. Instructions: Sitz bath as needed. Symptoms to Report: Appetite Changes, Extremity Discoloration, Numbness/Tingling, Swelling Increased , Bleeding Excessive, Eyesight Changes, Pain Increased, Urine Color Change, Constipation(Persistent), Fever over 101 degree F, Pain/Pressure in chest, Urinating Difficulty, Cough Up/Vomit Blood, Heart Beat Irreg/Pounding, Pain/ Pressure in jaw, Cramps in feet or legs, Lightheadedness, Pain/Pressure in shoulder, Diarrhea(Persistent), Memory Changes Suddenly, Questions/Concerns, Weight gain consecutive days, Dizziness/Fainting, Nausea/Vomiting, Shortness of Breath, Weight gain over 2 pounds If questions or concerns contact your physician Or seek help at emergency department. Activity Activity as Tolerated: Yes Diet Discharge Diet: No Restrictions (but increased fluids) If Any Problems/Questions/Issu: Contact Your Physician, Go to Emergency Room Skin/Wound Care Infection Signs and Symptoms: Increased Redness, Foul Odor of Wound, Increased Drainage, Skin Itchy or Has a Rash, Increased Swelling, Temperature Above 101 F Bathing Instructions: TREVA Borja DO Aug 13, 2018 14:02
--- NOTE | 2018-08-13 14:04 | Progress Note-Post Operative ---
Post-Operative Progess Note Surgeon (s)/Bottling Room Worker (s) Surgeon TREVA MCFARLAND DO Bottling Room Worker: none Pre-Operative Diagnosis Rectal pain, rectal thickening Post-Operative Diagnosis same plus Anal fistula with Abscess Procedure & Operative Findings Date of Procedure 08/13/18 Procedure Performed/Findings Flex sig with cold biopsy Anesthesia Type IV sedation by TUBE BUILDER AIRPLANE Estimated Blood Loss Estimated blood loss (mL): scant Specimens/Packing Specimens Removed anal/rectal bx TREVA MCFARLAND DO Aug 13, 2018 14:04
[2018-08-13 14:10] VITALS: BP 114/89
[2018-08-13 14:25] VITALS: BP 114/89
--- NOTE | 2018-08-13 19:19 | OPERATIVE REPORT ---
DATE OF SERVICE: 08/13/2018 PREOPERATIVE DIAGNOSES: Rectal pain, anal stenosis. POSTOPERATIVE DIAGNOSES: Rectal pain, anal stenosis, plus anal fistula and abscess. PROCEDURE: Flexible sigmoidoscopy with biopsy. SURGEON: Jose Guadalupe Hernandez DO. HOT STONE SETTER: None. ANESTHESIA: IV sedation by the BREAK OUT WORKER. SPECIMEN: Two biopsies from the rectum. BLOOD LOSS: Scant. FLUIDS: Per anesthesia. POSTOPERATIVE CONDITION: Stable. INDICATION FOR PROCEDURE: The patient is a 47-year-old male who has been having some rectal pain. 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 He had a CT, which showed some thickening. He has continued pain and has not had any rectal bleeding in a while and needed to get this relooked at. FINDINGS: I actually saw pus leaking out of at least 1, possibly 2 anal fistulas, looked like I saw some openings just outside the anal canal. Pictures of this were also taken and a biopsy done in the area of thickening and at the rectal fistulas on the inside. PROCEDURE NOTE: After informed consent was obtained, the patient was brought to the endoscopy suite, placed in the bed left lateral decubitus position. He was administered IV sedation by the BREAK OUT WORKER who then monitored his vitals the entire time, heart rate, blood pressure and pulse ox and the scope was inserted, pushed through the rectum. It looked like a little bit thickened in here. I pushed, able pass this through into the sigmoid and up the ascending colon. He had some retained fecal material, but we had only had him do enema, so this was expected. Pulled back down through the sigmoid into the rectum and in the rectum, I actually saw small openings with purulent fluid coming out. Pictures were taken. I then did biopsies in this area. There was still a little bit of anal stenosis. Pulled back and then saw what looked like the openings just outside the rectum and the anal canal of these fistulas. Took pictures of these as well and then finished the procedure. I then removed the scope completely. The patient tolerated the procedure and recovered in the endoscopy suite. He was also sent home with p.o. antibiotics Cipro and Flagyl. Job ID: [id number] DocumentID: [id number] Dictated Date: 08/13/2018 14:55:27 Outpatient Interviewing Clerk Date: 08/13/2018 19:18:00 Dictated By: JOSE GUADALUPE HERNANDEZ DO
--- OUTSIDE RECORDS SUMMARY | 2018-08-14 05:25 | XMS REPORT ---
Author Author ALYSON CARMEN [facility] Address [address] [place] [address] Care Team Providers Care Fabrication Specialist Name Role Phone ALYSON CARMEN Unavailable PROBLEMS Type Condition ICD9-CM Code ZOB79-GX Code Onset Dates Condition Status SNOMED Code Problem Tobacco dependence F17.200 Active 61332993 Problem Chronic pain G89.29 Active 94536613 Problem Bilateral headaches R51 Active 867374327 Problem IBS (irritable bowel syndrome) K58.9 Active 21591286 Problem Rectal irritation K62.89 Active 25687838 Problem Herniation of intervertebral disc between L4 and L5 M51.26 Active 071287861 Problem Depression F32.9 Active 30316877 ALLERGIES No Information ENCOUNTERS Encounter Location Date Diagnosis [place] [id number] [address] 04 Aug, 2018 [facility] [address] [address] Jul, Chronic pain G89.29 [facility] [address] [place] [id number] [place] [address] 15 Jun, 2018 Chronic pain G89.29 [facility] [id number] [place] [address]22- [address] 18 May, 2018 Herniation of intervertebral disc between L4 and L5 M51.26 [facility] [address] [id number] [place] [address]85- 3604 17 May, 2018 Chronic pain G89.29 [facility] [address] [id number] [place] [address] 09758- 2964 May, [facility] [id number] [place] [address] 30630- 5071 Apr, Chronic pain G89.29 [place] [address] [place] [id number] [place] [address] 70976- 7231 March, Chronic pain G89.29 [facility] [id number] [place] [address] 02874- 7696 Jan, Chronic pain G89.29 and IBS (irritable bowel syndrome) K58.9 [facility] [id number] [place] [address] 41569- 1166 Dec, Chronic pain G89.29 [facility] [id number] [place] [address] 81215- 1136 Dec, Chronic pain G89.29 [facility] [id number] [place] [address] 29551- 7666 Dec, [facility] [id number] [place] [address] 17308- 6376 Dec, Chronic pain G89.29 [facility] [address] [id number] [place] [address] 41934- 2766 Nov, Chronic pain G89.29 [facility] [address] [id number] [place] [address] 99167- 2245 Nov, [facility] [id number] [place] [address] 33507- 8417 Nov, IBS (irritable bowel syndrome) K58.9 ; Rectal irritation K62.89 and Chronic pain G89.29 [facility] [address] [place] [id number] [place] [address] 25836- 5374 Oct, Chronic pain G89.29 and IBS (irritable bowel syndrome) K58.9 [facility] [id number] [place] [address] 50889- 6706 Sep, Chronic pain G89.29 and Fungal infection B49 [facility] [id number] [place] [address] 70068- 6236 Sep, Chronic pain G89.29 [facility] [address], [place] [address] 05 Aug, 2017 Chronic pain G89.29 [facility] [id number] [place] [address] 62758- 6454 05 Jul, 2017 Chronic pain G89.29 [facility] [address] [place] [id number] [place] [address] 27318- 3666 07 Jun, 2017 Chronic pain G89.29 [facility] [address] [place] [id number] [place] [address] 85450- 7886 May, Herniation of intervertebral disc between L4 and L5 M51.26 and Over weight E66.3 [facility] [address] [id number] [place] [address] 17177- 8533 Apr, Over weight E66.3 [facility] [address] [place] [id number] [place] [address] 75864- 0131 Apr, IBS (irritable bowel syndrome) K58.9 ; Depression F32.9 ; Herniation of intervertebral disc between L4 and L5 M51.26 and Bilateral headaches R51 [facility] [address] [place] [id number] [place] [address] 55768- 0499 Apr, [facility] [address] [id number] [place] [address] 24897- 4334 Apr, [facility] [address] [place] [address] 38859- 0260 Dec, Herniation of intervertebral disc between L4 and L5 M51.26 and Depression F32.9 [facility] [address] [address] Nov, Herniation of intervertebral disc between L4 and L5 M51.26 and IBS (irritable bowel syndrome) K58.9 [facility] [address] [address] Oct, [facility] [address] [place] [id number] [place] [address] 57325- 0092 Aug, Physical exam Z00.00 ; IBS (irritable bowel syndrome) K58.9 ; Depression F32.9 and Herniation of intervertebral disc between L4 and L5 M51.26 [facility] [address] [place] [id number] [place] [address] 49489- 9898 Aug, Depression F32.9 [facility] [address] [place] [place] [id number] [place] [address] 47439- 2449 Jul, [facility] [address] [address] Jun, IBS (irritable bowel syndrome) K58.9 ; Depression F32.9 ; Herniation of intervertebral disc between L4 and L5 M51.26 and Bilateral headaches R51 [facility] [address] [place] [id number] [place] [address] 93189- 3384 March, Chronic pain G89.29 [facility] [address] [place] [id number] [place] [address] 77981- 1644 Jan, Chronic pain G89.29 [facility] [address] [place] [id number] [place] [address] 51876- 7294 Jan, [facility] [address] [place] [id number] [place] [address] 18894- 7524 Jan, [facility] [address] [place] [id number] [place] [address] 08798- 7406 Dec, IBS (irritable bowel syndrome) K58.9 ; Depression F32.9 and Herniation of intervertebral disc between L4 and L5 M51.26 [facility] [address] [id number] [place] [address] 44296- 5995 Dec, [facility] [id number] [place] [address] 70721- 4807 Dec, [facility] [address] [id number] [place] [address] 88568- 4687 Dec, [facility] [address] [id number] [place] [address] 58570- 0537 Dec, [facility] [address] [address] Nov, [facility] [address] [place] [id number] [place] [address] 47810- 3195 Nov, [facility] [address] [id number] [place] [address] 79098- 6374 Nov, [facility] [address] [place] [id number] [place] [address] 64717- 9674 Nov, Heavy tobacco smoker >10 cigarettes per day F17.210 [facility] [address] [place] [id number] [place] [address] 26844- 2786 Nov, Chronic pain G89.29 [facility] [address] [place] [id number] [place] [address] 09590- 8077 Nov, [facility] [address] [place] [id number] [place] [address] 63605- 9328 Oct, [facility] [address] [place] [id number] [place] [address] 74267- 6108 Oct, [facility] [address] [place] [id number] [place] [address] 12133- 1311 Oct, Pilonidal cyst without mention of abscess 685.1 ; IBS ( irritable bowel syndrome) K58.9 ; Rectal irritation K62.89 and Depression F32.9 [facility] [address] [place] [address] 34192- 6475 Oct, [facility] [address] [place] [address] 06320- 5388 Sep, [facility] [address] [place] [id number] [place] [address] 35715- 1915 Sep, [facility] [address] [place] [address] 03837- 8297 Sep, IBS (irritable bowel syndrome) K58.9 and Rectal irritation K62.89 [facility] [address] [address] Jan, [facility] [address] [place] [id number] [address] Jan, [facility] [address] [address]- [address] Dec, [facility] [address] [address] [id number] [address]- 3[address] Dec, [facility] [address] [address]- [address] Dec, [facility] [address] [id number] [address] Nov, [facility] [address] [id number] [address] Aug, IMMUNIZATIONS No Known Immunizations SOCIAL HISTORY Never Assessed REASON FOR VISIT Controlled Medication Refill PLAN OF CARE VITAL SIGNS MEDICATIONS Medication [...]
--- OUTSIDE RECORDS SUMMARY | 2018-08-14 05:25 | XMS REPORT ---
Author Author ALYSON CARMEN [facility] Address [address] [place] [address] Care Team Providers Care District Sales Coordinator Name Role Phone ALYSON CARMEN Unavailable PROBLEMS Type Condition ICD9-CM Code GOQ51-OD Code Onset Dates Condition Status SNOMED Code Problem Tobacco dependence F17.200 Active 31881917 Problem Chronic pain G89.29 Active 25814919 Problem Bilateral headaches R51 Active 422537030 Problem IBS (irritable bowel syndrome) K58.9 Active 91559929 Problem Rectal irritation K62.89 Active 95556647 Problem Herniation of intervertebral disc between L4 and L5 M51.26 Active 118014211 Problem Depression F32.9 Active 38901255 ALLERGIES No Information ENCOUNTERS Encounter Location Date Diagnosis [facility] [id number] [place] [address] 17810- 8233 Jul, [facility] [address] 66857- 7418 Jun, Chronic pain G89.29 [facility] [id number] [place] [address] 61365- 9036 18 May, 2018 Herniation of intervertebral disc between L4 and L5 M51.26 [facility] [id number] [place] [address] 75338- 8378 17 May, [address] [facility] [id number] [place] [address] 27525- 1196 May, [facility] [id number] [place] [address] 42778- 1899 Apr, Chronic pain G89.29 [facility] [id number] [place] [address] 25413- 0730 March, Chronic pain G89.29 [place] [address] [address] 3631 Jan, Chronic pain G89.29 and IBS (irritable bowel syndrome) K58.9 [facility] [id number] [place] [address] 45282 2546 Dec, Chronic pain G89.29 [facility] [id number] [place] [address] 74418- 6096 Dec, Chronic pain G89.29 [facility] [id number] [place] [address] 08235- 1526 Dec, [facility] [address] 26061- 6256 Dec, Chronic pain G89.29 [facility] [id number] [place] [address] 64207- 8057 Nov, Chronic pain G89.29 [facility] [id number] [place] [address] 34393- 3240 Nov, [facility] [id number] [place] [address] 17635- 1670 Nov, IBS (irritable bowel syndrome) K58.9 ; Rectal irritation K62.89 and Chronic pain G89.29 [facility] [id number] [place] [address] 31468- 2398 Oct, Chronic pain G89.29 and IBS (irritable bowel syndrome) K58.9 [facility] [id number] [place] [address] 00748- 5729 Sep, Chronic pain G89.[address] infection [address]49 [facility] [id number] [place] [address] 67875- 0256 Sep, Chronic pain G89.29 [facility] [id number] [place] [address] 07733- 6913 Aug, Chronic pain G89.29 [facility] [id number] [place] [address] 95493- 0484 05 Jul, [address] [facility] [id number] [place] [address] 36629- 7293 07 Jun, 2017 Chronic pain G89.29 [place] [id number] [place] [address] 02901- 3123 May, Herniation of intervertebral disc between L4 and L5 M51.26 [address] Over weight E66.3 [facility] [id number] [place] [address] 57347- 7866 Apr, Over weight E66.3 [place] [id number] [place] [address] 86693- 7313 Apr, IBS (irritable bowel syndrome) K58.9 ; Depression F32.9 ; Herniation of intervertebral disc between L4 and L5 M51.26 and Bilateral headaches R51 [place] [id number] [place] [address] 35910- 6805 Apr, [place] [id number] [place] [address] 54220- 1455 Apr, [place] [id number] [place] [address] 97610- 1240 10 Dec, 2016 Herniation of intervertebral disc between L4 and L5 M51.26 and Depression F32.9 [place] [id number] [place] [address] 06482- 8083 Nov, Herniation of intervertebral disc between L4 and L5 M51.26 and IBS (irritable bowel syndrome) K58.9 [facility] [id number] [place] [address] 82894- 6054 Oct, [place] [id number] [place] [address] 38784- 7402 Aug, Physical exam Z00.00 ; IBS (irritable bowel syndrome) K58.9 ; Depression F32.9 and Herniation of intervertebral disc between L4 and L5 M51.26 [place] [id number] [place] [address] 32857- 6612 Aug, Depression [address]9 [facility] [id number] [place] [address] 14259- 0018 Jul, [facility] [id number] [place] [address] 46507- 7953 Jun, IBS (irritable bowel syndrome) K58.9 ; Depression F32.9 ; Herniation of intervertebral disc between L4 and L5 M51.26 [address] Bilateral headaches R51 [facility] [id number] [place] [address] 43542- 2535 March, Chronic pain G89.29 [facility] [id number] [place] [address] 46899- 1516 Jan, Chronic pain G89.29 [facility] [id number] [place] [address] 70956- 7169 Jan, [facility] [id number] [place] [address] 89254- 0811 Jan, [facility] [id number] [place] [address] 48000- 3699 Dec, IBS (irritable bowel syndrome) K58.9 ; Depression F32.9 and Herniation of intervertebral disc between L4 and L5 M51.26 [facility] [id number] [place] [address] 21546- 9746 Dec, [facility] [id number] [place] [address] 74254- 1846 Dec, [facility] [id number] [place] [address] 31462- 4756 Dec, [facility] [id number] [place] [address] 06739- 4823 Dec, [facility] [id number] [place] [address] 26006- 5979 Nov, [facility] [address] [address]- 4[address], [address] [facility] [id number] [place] [address] 47215- 6872 Nov, [facility] [id number] [place] [address] 35360- 9543 Nov, Heavy tobacco smoker >10 cigarettes per day F17.210 [facility] [id number] [place] [address] 91753- 5165 08 Nov, [address] [facility] [id number] [place] [address] 67912- 9984 Nov, [facility] [id number] [place] [address] 72598- 3911 Oct, [facility] [id number] [place] [address] 99884- 8734 Oct, [facility] [id number] [place] [address] 16339- 9166 18 Oct, 2015 Pilonidal cyst without mention of abscess 685.1 ; IBS ( irritable bowel syndrome) K58.9 ; Rectal irritation K62.[address] [facility] [id number] [place] [address] 80109- 0337 Oct, [facility] [id number] [place] [address] 63890- 6327 [address], [address] [facility] [id number] [place] [address] 48480- 9459 16 Sep, 2015 [facility] [id number] [place] [address] 80418- 3201 13 Sep, 2015 IBS (irritable bowel syndrome) K58.[address] irritation K62.89 [facility] [id number] [place] [address] 15869- 0485 [address], [address] [facility] [id number] [address]- 6306 Jan, [facility] [id number] [address] 0707 Dec, [facility] [id number] [address] 1586 Dec, [facility] [address] [address] 2546 Dec, [facility] [address] [address]- 9997 Nov, [facility] [id number] [address]- 1363 Aug, IMMUNIZATIONS No Known Immunizations SOCIAL HISTORY Never Assessed REASON FOR VISIT Refill Request PLAN OF CARE VITAL SIGNS MEDICATIONS Medication Instructions Dosage Frequency Start Date End Date Duration Status Gabapentin 300 MG Orally 2 times a day 1 capsule 12h 30 days Active RESULTS No Results PROCEDURES No Known procedures INSTRUCTIONS MEDICATIONS ADMINISTERED No Known Medications MEDICAL (GENERAL) HISTORY Type Description Date Medical History Irritable bowel syndrome without diarrhea Medical History Hypertension Surgical History bilat knee replacement 2008 Surgical History anal fissure 2006 Surgical History appendectomy 2006 Surgical History inguinal hernia repair 1988
--- OUTSIDE RECORDS SUMMARY | 2018-08-14 05:25 | XMS REPORT ---
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 Role Phone ALYSON CARMEN Unavailable PROBLEMS Type Condition ICD9-CM Code QLP64-LY Code Onset Dates Condition Status SNOMED Code Problem Tobacco dependence F17.200 Active 74184489 Problem Chronic pain G89.29 Active 07305134 Problem Bilateral headaches R51 Active 010155244 Problem IBS (irritable bowel syndrome) K58.9 Active 46443190 Problem Rectal irritation K62.89 Active 98767001 Problem Herniation of intervertebral disc between L4 and L5 M51.26 Active 553716386 Problem Depression F32.9 Active 66233276 ALLERGIES No Information ENCOUNTERS Encounter Location Date Diagnosis [facility] [id number] [place] [address] 43883- 5304 Jul, [facility] [address] 73075- 0501 Jun, Chronic pain G89.29 [facility] [id number] [place] [address] 61724- 2646 18 May, 2018 Herniation of intervertebral disc between L4 and L5 M51.26 [facility] [id number] [place] [address] 63654- 4061 17 May, 2018 Chronic pain G89.29 [facility] [id number] [place] [address] 44489- 0474 May, [facility] [id number] [place] [address] 70895- 5162 Apr, Chronic pain G89.29 [facility] [id number] [place] [address] 39364- 9019 March, Chronic pain G89.29 [place] [address], [place] [address]- 7580 Jan, Chronic pain G89.29 and IBS (irritable bowel syndrome) K58.9 [facility] [id number] [place] [address] 06390 2546 Dec, Chronic pain G89.29 [facility] [id number] [place] [address] 00300- 7976 Dec, Chronic pain G89.29 [facility] [id number] [place] [address] 98894- 6176 Dec, [facility] [address] 87960- 0746 Dec, Chronic pain G89.29 [facility] [id number] [place] [address] 78570- 4777 Nov, Chronic pain G89.29 [facility] [id number] [place] [address] 50232- 3963 Nov, [facility] [id number] [place] [address] 30790- 0907 Nov, IBS (irritable bowel syndrome) K58.9 ; Rectal irritation K62.89 and Chronic pain G89.29 [facility] [id number] [place] [address] 53691- 0633 Oct, Chronic pain G89.29 and IBS (irritable bowel syndrome) K58.9 [facility] [id number] [place] [address] 39226- 4362 Sep, Chronic pain G89.29 and Fungal infection B49 [facility] [id number] [place] [address] 41120- 0386 Sep, Chronic pain G89.29 [facility] [id number] [place] [address] 91681- 2490 Aug, Chronic pain G89.29 [facility] [id number] [place] [address] 64809- 8093 05 Jul, 2017 Chronic pain G89.29 [facility] [id number] [place] [address] 90740- 7150 07 Jun, 2017 Chronic pain G89.29 [place] [id number] [place] [address] 82809- 0474 May, Herniation of intervertebral disc between L4 and L5 M51.26 and Over weight E66.3 [facility] [id number] [place] [address] 79537- 0440 Apr, Over weight E66.3 [place] [id number] [place] [address] 28907- 0618 Apr, IBS (irritable bowel syndrome) K58.9 ; Depression F32.9 ; Herniation of intervertebral disc between L4 and L5 M51.26 and Bilateral headaches R51 [place] [id number] [place] [address] 09275- 3235 Apr, [place] [id number] [place] [address] 25951- 5526 Apr, [place] [id number] [place] [address] 72266- 0806 10 Dec, 2016 Herniation of intervertebral disc between L4 and L5 M51.26 and Depression F32.9 [place] [id number] [place] [address] 69395- 0787 Nov, Herniation of intervertebral disc between L4 and L5 M51.26 and IBS (irritable bowel syndrome) K58.9 [facility] [address] [place] [address] 19430- 6993 Oct, [place] [id number] [place] [address] 18840- 6397 Aug, Physical exam Z00.00 ; IBS (irritable bowel syndrome) K58.9 ; Depression F32.9 and Herniation of intervertebral disc between L4 and L5 M51.26 [place] [id number] [place] [address] 46692- 8805 Aug, Depression F32.9 [facility] [id number] [place] [address] 02183- 5006 Jul, [facility] [id number] [place] [address] 45433- 5126 Jun, IBS (irritable bowel syndrome) K58.9 ; Depression F32.9 ; Herniation of intervertebral disc between L4 and L5 M51.26 and Bilateral headaches R51 [facility] [id number] [place] [address] 52746- 2950 March, Chronic pain G89.29 [facility] [id number] [place] [address] 58712- 7063 Jan, Chronic pain G89.29 [facility] [id number] [place] [address] 67933- 4286 Jan, [facility] [id number] [place] [address] 20128- 9774 Jan, [facility] [id number] [place] [address] 35548- 1970 Dec, IBS (irritable bowel syndrome) K58.9 ; Depression F32.9 and Herniation of intervertebral disc between L4 and L5 M51.26 [facility] [id number] [place] [address] 86522- 7119 Dec, [facility] [id number] [place] [address] 07671- 8376 Dec, [facility] [id number] [place] [address] 26198- 0670 Dec, [facility] [id number] [place] [address] 74765- 5473 Dec, [facility] [id number] [place] [address] 96013- 7511 Nov, [facility] [address], [place] [address]- 8227 13 Nov, 2015 [facility] [id number] [place] [address] 06632- 4533 Nov, [facility] [id number] [place] [address] 19219- 2847 Nov, Heavy tobacco smoker >10 cigarettes per day F17.210 [facility] [id number] [place] [address] 89709- 9206 08 Nov, 2015 Chronic pain G89.29 [facility] [id number] [place] [address] 34517- 3196 Nov, [facility] [id number] [place] [address] 83864- 6907 Oct, [facility] [id number] [place] [address] 85535- 1854 Oct, [facility] [id number] [place] [address] 79577- 7095 18 Oct, 2015 Pilonidal cyst without mention of abscess 685.1 ; IBS ( irritable bowel syndrome) K58.9 ; Rectal irritation K62.89 and Depression F32.9 [facility] [address] [place] [address] 36005- 3180 Oct, [facility] [id number] [place] [address] 16349- 9243 27 Sep, 2015 [facility] [id number] [place] [address] 04648- 2469 16 Sep, 2015 [facility] [id number] [place] [address] 56850- 7719 13 Sep, 2015 IBS (irritable bowel syndrome) K58.9 and Rectal irritation K62.89 [facility] [address] [place] [address] 39299- 9939 14 Jan, 2015 [facility] [id number] [address]- 5156 Jan, [facility] [id number], [place] [address]- 1501 Dec, [facility] [id number] [address]- 3186 Dec, [facility] [address], [place] [address]- 2546 Dec, [facility] [address], [place] [address]- 8902 Nov, [facility] [id number], [place] [address]- 5363 Aug, IMMUNIZATIONS No Known Immunizations SOCIAL HISTORY Never Assessed REASON FOR VISIT Controlled Med Refill 05/19 PLAN OF CARE VITAL SIGNS MEDICATIONS Medication [...]
--- OUTSIDE RECORDS SUMMARY | 2018-08-14 05:25 | XMS REPORT ---
Author Author ALYSON CARMEN [facility] Address [address] [place] [address] Care Team Providers Care Advanced Manager Name Role Phone ALYSON CARMEN Unavailable PROBLEMS Type Condition ICD9-CM Code [id number] Code Onset Dates Condition Status SNOMED Code Problem Tobacco dependence F17.200 Active 42875267 Problem Chronic pain G89.29 Active 39209178 Problem Bilateral headaches R51 Active 861391992 Problem IBS (irritable bowel syndrome) K58.9 Active 85588565 Problem Rectal irritation K62.89 Active 44639185 Problem Herniation of intervertebral disc between L4 and L5 M51.26 Active 613706098 Problem Depression F32.9 Active 25330442 ALLERGIES No Information ENCOUNTERS Encounter Location Date Diagnosis [place] [id number] [address]- [address] 04 Aug, 2018 [facility] [address] 84207- 1812 Jul, Chronic pain G89.29 [facility] [address] [place] [id number] [place] [address] 60692- 1839 15 Jun, 2018 Chronic pain G89.29 [facility] [id number] [place] [address] 86748- 2223 18 May, 2018 Herniation of intervertebral disc between L4 and L5 M51.26 [facility] [id number] [place] [address] 90471- 3790 17 May, 2018 Chronic pain G89.29 [facility] [id number] [place] [address] 11571- 4504 May, [facility] [id number] [place] [address] 14025- 1027 Apr, Chronic pain G89.29 [place] [address] [id number] [place] [address] 86661- 5882 March, Chronic pain G89.29 [facility] [id number] [place] [address] 83808- 4656 Jan, Chronic pain G89.29 and IBS (irritable bowel syndrome) K58.9 [facility] [id number] [place] [address] 34551- 0316 Dec, Chronic pain G89.29 [facility] [id number] [place] [address] 56766- 2326 Dec, Chronic pain G89.29 [facility] [id number] [place] [address] 53107- 4966 Dec, [facility] [address] [id number] [place] [address] 56254- 3936 Dec, Chronic pain G89.29 [facility] [id number] [place] [address] 30001- 8985 Nov, Chronic pain G89.29 [facility] [id number] [place] [address] 32805- 7101 Nov, [facility] [id number] [place] [address] 48064- 7284 Nov, IBS (irritable bowel syndrome) K58.9 ; Rectal irritation K62.89 and Chronic pain G89.29 [facility] [id number] [place] [address] 61709- 8220 Oct, Chronic pain G89.29 and IBS (irritable bowel syndrome) K58.9 [facility] [id number] [place] [address] 40480- 9256 Sep, Chronic pain G89.29 and Fungal infection B49 [facility] [id number] [place] [address] 75820- 3106 Sep, Chronic pain G89.29 [facility] [address] [address] 2726 05 Aug, 2017 Chronic pain G89.29 [facility] [id number] [place] [address] 88967- 6771 05 Jul, 2017 Chronic pain G89.29 [facility] [id number] [place] [address] 78474- 5216 07 Jun, 2017 Chronic pain G89.29 [facility] [id number] [place] [address] 38873- 6357 May, Herniation of intervertebral disc between L4 and L5 M51.26 and Over weight E66.3 [facility] [address] [id number] [place] [address] 40261- 6528 Apr, Over weight E66.3 [facility] [address] [id number] [place] [address] 56676- 8805 Apr, IBS (irritable bowel syndrome) K58.9 ; Depression F32.9 ; Herniation of intervertebral disc between L4 and L5 M51.26 and Bilateral headaches R51 [facility] [address] [id number] [place] [address] 89757- 8822 Apr, [facility] [address] [place] [id number] [place] [address] 37244- 4842 Apr, [facility] [address] [place] [address] 30868- 8270 Dec, Herniation of intervertebral disc between L4 and L5 M51.26 and Depression F32.9 [facility] [address] [address]- 3074 Nov, Herniation of intervertebral disc between L4 and L5 M51.26 and IBS (irritable bowel syndrome) K58.9 [facility] [address] [address]- 9011 Oct, [facility] [address] [id number] [place] [address] 27942- 8651 Aug, Physical exam Z00.00 ; IBS (irritable bowel syndrome) K58.9 ; Depression F32.9 and Herniation of intervertebral disc between L4 and L5 M51.26 [facility] [address] [id number] [place] [address] 97903- 1843 Aug, Depression F32.9 [facility] [address] [id number] [place] [address] 44520- 1261 Jul, [facility] [address] 59363- 7276 Jun, IBS (irritable bowel syndrome) K58.9 ; Depression F32.9 ; Herniation of intervertebral disc between L4 and L5 M51.26 and Bilateral headaches R51 [facility] [address] [place] [id number] [place] [address] 05248- 8045 March, Chronic pain G89.29 [facility] [address] [place] [id number] [place] [address] 49125- 9172 Jan, Chronic pain G89.29 [facility] [address] [id number] [place] [address] 65601- 6650 Jan, [facility] [address] [id number] [place] [address] 43425- 1237 Jan, [facility] [address] [address] [id number] [place] [address] 40661- 3999 Dec, IBS (irritable bowel syndrome) K58.9 ; Depression F32.9 and Herniation of intervertebral disc between L4 and L5 M51.26 [facility] [address] [id number] [place] [address] 47665- 7231 Dec, [facility] [address] [id number] [place] [address] 43098- 1074 Dec, [facility] [address] [address] [id number] [place] [address] 87802- 8610 Dec, [facility] [address] [address] [id number] [place] [address] 51071- 5497 Dec, [facility] [address], [place] [address]- 7276 Nov, [facility] [address] [address] [id number] [place] [address] 06289- 5039 Nov, [facility] [address] [id number] [place] [address] 29015- 3014 Nov, [facility] [address] [id number] [place] [address] 67354- 8988 Nov, Heavy tobacco smoker >10 cigarettes per day F17.210 [facility] [address] [place] [id number] [place] [address] 85310- 7481 Nov, Chronic pain G89.29 [facility] [address] [place] [id number] [place] [address] 92398- 5938 Nov, [facility] [address] [place] [id number] [place] [address] 83147- 9947 Oct, [facility] [address] [place] [id number] [place] [address] 80962- 2282 Oct, [facility] [address] [place] [id number] [place] [address] 19765- 7270 Oct, Pilonidal cyst without mention of abscess 685.1 ; IBS ( irritable bowel syndrome) K58.9 ; Rectal irritation K62.89 and Depression F32.9 [facility] [address] [place] [address] 43650- 3663 Oct, [facility] [address] [place] [address] 62532- 3380 Sep, [facility] [address] [place] [id number] [place] [address] 47897- 7113 Sep, [facility] [address] [place] [address] 03709- 3144 Sep, IBS (irritable bowel syndrome) K58.9 and Rectal irritation K62.89 [facility] [address], [place] [address]- 2566 Jan, [facility] [address] [place] [id number] [address]- 3794 Jan, [facility] [address], [place] [address]- 0976 Dec, [facility] [address] [place] [id number], [place] [address]- 5336 Dec, [facility] [address], [place] [address]- 9766 Dec, [facility] [address] [place] [id number] [address]- 1933 Nov, [facility] [address] [place] [id number] [address]- 1571 Aug, IMMUNIZATIONS No Known Immunizations SOCIAL HISTORY Never Assessed REASON FOR VISIT Controlled Medication Refill PLAN OF CARE VITAL SIGNS MEDICATIONS Medication Instructions Dosage Frequency Start Date End Date Duration Status Tramadol HCl 50 mg Orally 3 times a day 1 tablet as needed 8h 28 days Active Bentyl 10 mg Orally Four times a day 1 tablet 6h 30 Active RESULTS No Results PROCEDURES No Known procedures INSTRUCTIONS MEDICATIONS ADMINISTERED No Known Medications MEDICAL (GENERAL) HISTORY Type Description Date Medical History Irritable bowel syndrome without diarrhea Medical History Hypertension Surgical History bilat knee replacement 2008 Surgical History anal fissure 2006 Surgical History appendectomy 2006 Surgical History inguinal hernia repair 1988
--- OUTSIDE RECORDS SUMMARY | 2018-08-14 05:26 | XMS REPORT ---
Author Author ALYSON CARMEN [facility] Address [address] [place] [address] Care Team Providers Care Duty Officer Name Role Phone ALYSON CARMEN Unavailable PROBLEMS Type Condition ICD9-CM Code [id number] Code Onset Dates Condition Status SNOMED Code Problem Tobacco dependence F17.200 Active 78023416 Problem Chronic pain G89.29 Active 81610334 Problem Bilateral headaches R51 Active 656370675 Problem IBS (irritable bowel syndrome) K58.9 Active 85559730 Problem Rectal irritation K62.89 Active 77332465 Problem Herniation of intervertebral disc between L4 and L5 M51.26 Active 809956149 Problem Depression F32.9 Active 47741964 ALLERGIES No Information ENCOUNTERS Encounter Location Date Diagnosis [facility] [address] [place] [id number] [place] [address] 58950- 3286 Jul, [facility] [address] 89785- 3444 Jun, Chronic pain G89.29 [facility] [address] [place] [id number] [place] [address] 33107- 6748 18 May, 2018 Herniation of intervertebral disc between L4 and L5 M51.26 [facility] [address] [place] [id number] [place] [address] 74379- 1461 17 May, 2018 Chronic pain G89.29 [facility] [address] [place] [id number] [place] [address] 86713- 8065 May, [facility] [address] [place] [id number] [place] [address] 17852- 2840 Apr, Chronic pain G89.29 [facility] [address] [place] [id number] [place] [address] 60015- 2973 March, Chronic pain G89.29 [place] [address] [address]- 2015 Jan, Chronic pain G89.29 and IBS (irritable bowel syndrome) K58.9 [facility] [address] [place] [id number] [place] [address] 09696 2546 Dec, Chronic pain G89.29 [facility] [address] [place] [id number] [place] [address] 41768- 8246 Dec, Chronic pain G89.29 [facility] [address] [place] [id number] [place] [address] 82170- 8476 Dec, [facility] [address] 76242- 9276 Dec, Chronic pain G89.29 [facility] [address] [place] [id number] [place] [address] 42811- 2000 Nov, Chronic pain G89.29 [facility] [address] [place] [id number] [place] [address] 49145- 3345 Nov, [facility] [address] [place] [id number] [place] [address] 82293- 4548 Nov, IBS (irritable bowel syndrome) K58.9 ; Rectal irritation K62.89 and Chronic pain G89.29 [facility] [address] [place] [id number] [place] [address] 40400- 8076 Oct, Chronic pain G89.29 and IBS (irritable bowel syndrome) K58.9 [facility] [address] [place] [id number] [place] [address] 00991- 7182 Sep, Chronic pain G89.29 and Fungal infection B49 [facility] [address] [place] [id number] [place] [address] 51330- 3666 Sep, Chronic pain G89.29 [facility] [address] [id number] [place] [address] 76027- 6873 Aug, Chronic pain G89.29 [facility] [address] [id number] [place] [address] 93660- 1768 05 Jul, 2017 Chronic pain G89.29 [facility] [address] [place] [id number] [place] [address] 05128- 1653 07 Jun, 2017 Chronic pain G89.29 [place] [address] [place] [id number] [place] [address] 09707- 0057 May, Herniation of intervertebral disc between L4 and L5 M51.26 and Over weight E66.3 [facility] [address] [place] [id number] [place] [address] 72653- 5272 Apr, Over weight E66.3 [place] [address] [place] [id number] [place] [address] 25776- 8873 Apr, IBS (irritable bowel syndrome) K58.9 ; Depression F32.9 ; Herniation of intervertebral disc between L4 and L5 M51.26 and Bilateral headaches R51 [place] [address] [place] [id number] [place] [address] 85856- 0570 Apr, [place] [address] [place] [id number] [place] [address] 43749- 2883 Apr, [place] [address] [place] [id number] [place] [address] 29325- 8535 10 Dec, 2016 Herniation of intervertebral disc between L4 and L5 M51.26 and Depression F32.9 [place] [address] [place] [id number] [place] [address] 49243- 6943 Nov, Herniation of intervertebral disc between L4 and L5 M51.26 and IBS (irritable bowel syndrome) K58.9 [facility] [address] [place] [address] 70788- 0414 Oct, [place] [address] [place] [id number] [place] [address] 20713- 3769 Aug, Physical exam Z00.00 ; IBS (irritable bowel syndrome) K58.9 ; Depression F32.9 and Herniation of intervertebral disc between L4 and L5 M51.26 [place] [address] [place] [id number] [place] [address] 32700- 1128 Aug, Depression F32.9 [facility] [address] [place] [id number] [place] [address] 19580- 5603 Jul, [facility] [address] [id number] [place] [address] 55800- 2114 Jun, IBS (irritable bowel syndrome) K58.9 ; Depression F32.9 ; Herniation of intervertebral disc between L4 and L5 M51.26 and Bilateral headaches R51 [facility] [address] [place] [id number] [place] [address] 15943- 0928 March, Chronic pain G89.29 [facility] [address] [id number] [place] [address] 78212- 3581 Jan, Chronic pain G89.29 [facility] [address] [id number] [place] [address] 43017- 5571 Jan, [facility] [address] [id number] [place] [address] 53114- 7639 Jan, [facility] [address] [id number] [place] [address] 73629- 0063 Dec, IBS (irritable bowel syndrome) K58.9 ; Depression F32.9 and Herniation of intervertebral disc between L4 and L5 M51.26 [facility] [id number] [place] [address] 10879- 0738 Dec, [facility] [address] [id number] [place] [address] 16200- 1549 Dec, [facility] [id number] [place] [address] 25807- 2858 Dec, [facility] [id number] [place] [address] 90614- 0309 Dec, [facility] [address] [id number] [place] [address] 96231- 3306 Nov, [facility] [address] [address]- 0146 13 Nov, 2015 [facility] [id number] [place] [address] 01233- 0418 Nov, [facility] [id number] [place] [address] 12265- 3028 Nov, Heavy tobacco smoker >10 cigarettes per day F17.210 [facility] [address] [id number] [place] [address] 97786- 8205 08 Nov, 2015 Chronic pain G89.29 [facility] [address] [id number] [place] [address] 22837- 9775 Nov, [facility] [address] [id number] [place] [address] 58808- 5951 Oct, [facility] [id number] [place] [address] 73047- 9127 Oct, [facility] [id number] [place] [address] 51485- 5538 18 Oct, 2015 Pilonidal cyst without mention of abscess 685.1 ; IBS ( irritable bowel syndrome) K58.9 ; Rectal irritation K62.89 and Depression F32.9 [facility] [address] [place] [address] 92520- 7642 Oct, [facility] [id number] [place] [address] 60356- 4169 27 Sep, 2015 [facility] [id number] [place] [address] 22408- 4735 16 Sep, 2015 [facility] [id number] [place] [address] 61522- 3604 13 Sep, 2015 IBS (irritable bowel syndrome) K58.9 and Rectal irritation K62.89 [facility] [address] [place] [address] 59263- 9971 14 Jan, 2015 [facility] [id number] [address]- 7016 Jan, [facility] [address] [place] [id number] [address]- 5778 Dec, [facility] [address] [place] [id number] [address]- 6936 Dec, [facility] [address] [address]- 3926 Dec, [facility] [address] [address]- 7726 Nov, [facility] [address] [id number] [address]- 8124 Aug, IMMUNIZATIONS No Known Immunizations SOCIAL HISTORY Never Assessed REASON FOR VISIT Controlled Med Refill PLAN OF CARE VITAL SIGNS MEDICATIONS [...]
--- OUTSIDE RECORDS SUMMARY | 2018-08-14 05:26 | XMS REPORT ---
Author Author ALYSON CARMEN [facility] Address [address] [place] [address] Care Team Providers Care Simulation Analyst Name Role Phone ALYSON CARMEN Unavailable PROBLEMS Type Condition ICD9-CM Code QEA85-RU Code Onset Dates Condition Status SNOMED Code Problem Tobacco dependence F17.200 Active 03253270 Problem Chronic pain G89.29 Active 50517297 Problem Bilateral headaches R51 Active 124197373 Problem IBS (irritable bowel syndrome) K58.9 Active 32012203 Problem Rectal irritation K62.89 Active 90095019 Problem Herniation of intervertebral disc between L4 and L5 M51.26 Active 155549644 Problem Depression F32.9 Active 86341857 ALLERGIES No Information ENCOUNTERS Encounter Location Date Diagnosis [place] [id number] [place] [address] 77711- 3805 Jun, [facility] [address] 33644- 8261 May, Herniation of intervertebral disc between L4 and L5 M51.26 [facility] [id number] [place] [address] 95247- 2430 17 May, 2018 Chronic pain G89.29 [facility] [id number] [place] [address] 74523- 1755 May, [facility] [id number] [place] [address] 99625- 6177 Apr, Chronic pain G89.29 [facility] [id number] [place] [address] 40726- 4597 March, Chronic pain G89.29 [facility] [id number] [place] [address] 56186- 8463 Jan, Chronic pain G89.29 and IBS (irritable bowel syndrome) K58.9 [facility] [id number] [place] [address] 68775- 1019 Dec, Chronic pain G89.29 [facility] [id number] [place] [address] 17647- 2694 Dec, Chronic pain G89.29 [facility] [id number] [place] [address] 81450- 0332 Dec, [facility] [id number] [place] [address] 09856- 4057 Dec, Chronic pain G89.29 [facility] [address] 10052- 9603 Nov, Chronic pain G89.29 [facility] [id number] [place] [address] 83270- 9728 Nov, [facility] [address] 82540- 3067 Nov, IBS (irritable bowel syndrome) K58.9 ; Rectal irritation K62.89 and Chronic pain G89.29 [facility] [id number] [place] [address] 29321- 8343 Oct, Chronic pain G89.29 and IBS (irritable bowel syndrome) K58.9 [facility] [id number] [place] [address] 72412- 6580 Sep, Chronic pain G89.29 and Fungal infection B49 [facility] [id number] [place] [address] 03615- 4611 Sep, Chronic pain G89.29 [facility] [id number] [place] [address] 89071- 0666 05 Aug, 2017 Chronic pain G89.29 [facility] [id number] [place] [address] 90361- 5577 05 Jul, 2017 Chronic pain G89.29 [facility] [id number] [place] [address] 43770- 6535 07 Jun, 2017 Chronic pain G89.29 [facility] [id number] [place] [address] 98008- 8867 May, Herniation of intervertebral disc between L4 and L5 M51.26 and Over weight E66.3 [facility] [id number] [place] [address] 30070- 6676 Apr, Over weight E66.3 [facility] [id number] [place] [address] 52762- 3514 Apr, IBS (irritable bowel syndrome) K58.9 ; Depression F32.9 ; Herniation of intervertebral disc between L4 and L5 M51.26 and Bilateral headaches R51 [place] [id number] [place] [address] 53872- 9378 Apr, [place] [id number] [place] [address] 76522- 1354 Apr, [facility] [id number] [place] [address] 48551- 1590 Dec, Herniation of intervertebral disc between L4 and L5 M51.26 and Depression F32.9 [facility] [id number] [place] [address] 39631- 3240 Nov, Herniation of intervertebral disc between L4 and L5 M51.26 and IBS (irritable bowel syndrome) K58.9 [facility] [id number] [place] [address] 93963- 9597 Oct, [facility] [id number] [place] [address] 49819- 3382 Aug, Physical exam Z00.00 ; IBS (irritable bowel syndrome) K58.9 ; Depression F32.9 and Herniation of intervertebral disc between L4 and L5 M51.26 [facility] [address] [address]- 3591 07 Aug, 2016 Depression F32.9 [facility] [id number] [address]- 6016 Jul, [facility] [id number] [place] [address] 21895- 2301 Jun, IBS (irritable bowel syndrome) K58.9 ; Depression F32.9 ; Herniation of intervertebral disc between L4 and L5 M51.26 and Bilateral headaches R51 [facility] [id number] [place] [address] 42201- 3779 March, Chronic pain G89.29 [facility] [id number] [place] [address] 15679- 9951 Jan, Chronic pain G89.29 [facility] [id number] [place] [address] 20787- 6903 Jan, [facility] [id number] [place] [address] 22920- 6273 Jan, [facility] [id number] [place] [address] 22122- 8185 Dec, IBS (irritable bowel syndrome) K58.9 ; Depression F32.9 and Herniation of intervertebral disc between L4 and L5 M51.26 [facility] [address] [address]- 9684 Dec, [facility] [address] [address]- 2218 Dec, [facility] [id number] [place] [address] 12525- 3723 Dec, [facility] [id number] [address]- 1645 Dec, [facility] [id number] [place] [address] 97549- 1672 Nov, [facility] [address] [address]- 1949 Nov, [facility] [id number] [place] [address] 88240- 9267 Nov, [facility] [id number] [place] [address] 94479- 2503 Nov, Heavy tobacco smoker >10 cigarettes per day F17.210 [facility] [id number] [place] [address] 50684- 6184 08 Nov, 2015 Chronic pain G89.29 [facility] [address] 68269- 2141 08 Nov, 2015 [facility] [id number] [place] [address] 74863- 4033 Oct, [facility] [id number] [place] [address] 88820- 3874 Oct, [facility] [id number] [place] [address] 70866- 8071 18 Oct, 2015 Pilonidal cyst without mention of abscess 685.1 ; IBS ( irritable bowel syndrome) K58.9 ; Rectal irritation K62.89 and Depression F32.9 [facility] [id number] [place] [address] 49964- 5247 Oct, [facility] [id number] [place] [address] 12209- 1372 27 Sep, 2015 [facility] [id number] [place] [address] 15296- 9369 16 Sep, 2015 [facility] [id number] [place] [address] 34300- 5051 13 Sep, 2015 IBS (irritable bowel syndrome) K58.9 and Rectal irritation K62.89 [facility] [id number] [place] [address] 08789- 8686 14 Jan, 2015 [facility] [id number] [place] [address] 36677- 3294 13 Jan, 2015 [facility] [id number] [place] [address] 17747- 2546 Dec, [facility] [address] [facility] [id number] [address]- 2546 Dec, [facility] [address] [facility] [id number] [address]- 2546 Dec, [facility] [address] [facility] [id number] [address]- 2546 Nov, [facility] [address] [facility] [id number] [address]- 2546 Aug, IMMUNIZATIONS No Known Immunizations SOCIAL HISTORY Never Assessed REASON FOR VISIT Controlled Med Refill PLAN OF CARE VITAL SIGNS MEDICATIONS Medication Instructions Dosage Frequency Start Date End Date Duration Status Lomotil 2.5-0.025 MG Orally Four times a day 1 tablet as needed 6h Dec, Active Tramadol HCl 50 mg Orally 3 [...]
--- OUTSIDE RECORDS SUMMARY | 2018-08-14 05:26 | XMS REPORT ---
Author Author PATRICIA CARRERA [facility] Address [address] [place] [address] Care Team Providers Care Jamb Cutter Name Role Phone PATRICIA CARRERA Unavailable PROBLEMS Type Condition ICD9-CM Code WUC68-HK Code Onset Dates Condition Status SNOMED Code Problem Tobacco dependence F17.200 Active 33752490 Problem Chronic pain G89.29 Active 42287429 Problem Bilateral headaches R51 Active 161168672 Problem IBS (irritable bowel syndrome) K58.9 Active 72828710 Problem Rectal irritation K62.89 Active 02888189 Problem Herniation of intervertebral disc between L4 and L5 M51.26 Active 563878017 Problem Depression F32.9 Active 50720585 ALLERGIES No Information ENCOUNTERS Encounter Location Date Diagnosis [place] [id number] [place] [address] 94098- 7784 Jul, [place] [address] 97753- 5992 Jun, Chronic pain G89.29 [place] [id number] [place] [address] 41549- 9097 18 May, 2018 Herniation of intervertebral disc between L4 and L5 M51.26 [place] [id number] [place] [address] 44888- 7463 17 May, 2018 Chronic pain G89.29 [place] [id number] [place] [address] 22481- 6690 May, [place] [address] 88474- 7469 Apr, Chronic pain G89.29 [place] [id number] [place] [address] 16183- 1701 March, Chronic pain G89.29 [place] [address], [place] [address]- 5181 Jan, Chronic pain G89.29 and IBS (irritable bowel syndrome) K58.9 [facility] [id number] [place] [address] 88040 2546 Dec, Chronic pain G89.29 [facility] [id number] [place] [address] 03264- 7036 Dec, Chronic pain G89.29 [facility] [id number] [place] [address] 14915- 3036 Dec, [facility] [id number] [place] [address] 29245- 8076 Dec, Chronic pain G89.29 [facility] [id number] [place] [address] 63966- 5103 Nov, Chronic pain G89.29 [facility] [id number] [place] [address] 09994- 3490 Nov, [facility] [id number] [place] [address] 20210- 5256 Nov, IBS (irritable bowel syndrome) K58.9 ; Rectal irritation K62.89 and Chronic pain G89.29 [facility] [id number] [place] [address] 60030- 5862 Oct, Chronic pain G89.29 and IBS (irritable bowel syndrome) K58.9 [facility] [id number] [place] [address] 57757 2545 Sep, Chronic pain G89.29 and Fungal infection B49 [facility] [id number] [place] [address] 95719 2546 Sep, Chronic pain G89.29 [facility] [address] [place] [address] 49496- 6326 Aug, Chronic pain G89.29 [facility] [id number], [place] [address]- 2684 05 Jul, 2017 Chronic pain G89.29 [facility] [id number] [place] [address] 20264- 7205 07 Jun, 2017 Chronic pain G89.29 [facility] [id number] [place] [address] 65562- 0688 May, Herniation of intervertebral disc between L4 and L5 M51.26 and Over weight E66.3 [facility] [id number] [place] [address] 87909- 4923 Apr, Over weight E66.3 [place] [id number] [place] [address] 85434- 9254 Apr, IBS (irritable bowel syndrome) K58.9 ; Depression F32.9 ; Herniation of intervertebral disc between L4 and L5 M51.26 and Bilateral headaches R51 [place] [id number] [place] [address] 13131- 6758 Apr, [place] [id number] [place] [address] 68160- 7503 Apr, [place] [id number] [place] [address] 52541- 0801 10 Dec, 2016 Herniation of intervertebral disc between L4 and L5 M51.26 and Depression F32.9 [place] [id number] [place] [address] 02094- 6640 Nov, Herniation of intervertebral disc between L4 and L5 M51.26 and IBS (irritable bowel syndrome) K58.9 [facility] [address], [place] [address]- 3227 Oct, [place] [id number] [place] [address] 49112- 7378 Aug, Physical exam Z00.00 ; IBS (irritable bowel syndrome) K58.9 ; Depression F32.9 and Herniation of intervertebral disc between L4 and L5 M51.26 [place] [id number] [place] [address] 67193- 6608 Aug, Depression F32.9 [facility] [id number] [place] [address] 44550- 7747 Jul, [facility] [id number] [place] [address] 86650- 3766 Jun, IBS (irritable bowel syndrome) K58.9 ; Depression F32.9 ; Herniation of intervertebral disc between L4 and L5 M51.26 and Bilateral headaches R51 [facility] [id number] [place] [address] 17879- 0169 March, Chronic pain G89.29 [facility] [id number] [place] [address] 65907- 5167 Jan, Chronic pain G89.29 [facility] [id number] [place] [address] 43459- 1112 Jan, [facility] [id number] [place] [address] 32884- 3884 Jan, [facility] [id number] [place] [address] 89398- 3544 Dec, IBS (irritable bowel syndrome) K58.9 ; Depression F32.9 and Herniation of intervertebral disc between L4 and L5 M51.26 [facility] [id number] [place] [address] 54800- 1267 Dec, [facility] [id number] [place] [address] 66119- 3868 Dec, [facility] [id number] [place] [address] 84922- 2901 Dec, [facility] [id number] [place] [address] 67021- 8193 Dec, [facility] [id number] [place] [address] 92450- 1992 Nov, [facility] [id number] [address]- 1682 13 Nov, 2015 [facility] [id number] [place] [address] 90202- 2083 Nov, [facility] [id number] [place] [address] 98571- 9438 Nov, Heavy tobacco smoker >10 cigarettes per day F17.210 [facility] [id number] [place] [address] 64421- 4481 08 Nov, 2015 Chronic pain G89.29 [facility] [id number] [place] [address] 39582- 2525 Nov, [facility] [id number] [place] [address] 61226- 7970 Oct, [facility] [id number] [place] [address] 93374- 1744 Oct, [facility] [id number] [place] [address] 16642- 9463 18 Oct, 2015 Pilonidal cyst without mention of abscess 685.1 ; IBS ( irritable bowel syndrome) K58.9 ; Rectal irritation K62.89 and Depression F32.9 [facility] [address] [place] [address] 28575- 0894 Oct, [facility] [id number] [place] [address] 37968- 6571 27 Sep, 2015 [facility] [id number] [place] [address] 53147- 3004 16 Sep, 2015 [facility] [id number] [place] [address] 83078- 2805 13 Sep, 2015 IBS (irritable bowel syndrome) K58.9 and Rectal irritation K62.89 [facility] [address] [place] [address] 32608- 6070 14 Jan, 2015 [facility] [id number] [address] 8888 Jan, [facility] [address] [facility] [id number] [address]- 8523 Dec, [facility] [id number] 4403 Dec, [facility] [id number], [place] [address]- 5891 Dec, [facility] [id number] [address]- 4526 Nov, [facility] [address] [facility] [id number], [place] [address]- 7883 Aug, IMMUNIZATIONS No Known Immunizations SOCIAL HISTORY Never Assessed REASON FOR VISIT Requests return call PLAN OF CARE VITAL SIGNS MEDICATIONS Unknown Medications RESULTS No Results PROCEDURES No Known procedures INSTRUCTIONS MEDICATIONS ADMINISTERED No Known Medications MEDICAL (GENERAL) HISTORY Type Description Date Medical History Irritable bowel syndrome without diarrhea Medical History Hypertension Surgical History bilat knee replacement 2008 Surgical History anal fissure 2006 Surgical History appendectomy 2006 Surgical History inguinal hernia repair 1988
--- OUTSIDE RECORDS SUMMARY | 2018-08-14 05:26 | XMS REPORT ---
Author Author ALYSON CARMEN [facility] Address [address] [place] [address] Care Team Providers Care Adjustment Supervisor Name Role Phone ALYSON CARMEN Unavailable PROBLEMS Type Condition ICD9-CM Code [id number] Code Onset Dates Condition Status SNOMED Code Problem Tobacco dependence F17.200 Active 81027342 Problem Chronic pain G89.29 Active 28300229 Problem Bilateral headaches R51 Active 991809269 Problem IBS (irritable bowel syndrome) K58.9 Active 20156075 Problem Rectal irritation K62.89 Active 79079654 Problem Herniation of intervertebral disc between L4 and L5 M51.26 Active 235270957 Problem Depression F32.9 Active 50467521 ALLERGIES No Information ENCOUNTERS Encounter Location Date Diagnosis [facility] [id number] [place] [address] 72770- 3543 Jul, [facility] [address] 17026- 3574 Jun, Chronic pain G89.29 [facility] [id number] [place] [address] 51035- 8090 18 May, 2018 Herniation of intervertebral disc between L4 and L5 M51.26 [facility] [id number] [place] [address] 04772- 0482 17 May, 2018 Chronic pain G89.29 [facility] [id number] [place] [address] 57524- 5418 May, [facility] [id number] [place] [address] 83727- 2636 Apr, Chronic pain G89.29 [facility] [id number] [place] [address] 62758- 8509 March, Chronic pain G89.29 [place] [facility] [address] [address] 8908 Jan, Chronic pain G89.29 and IBS (irritable bowel syndrome) K58.9 [facility] [id number] [place] [address] 48198 2546 Dec, Chronic pain G89.29 [facility] [id number] [place] [address] 54614- 4796 Dec, Chronic pain G89.29 [facility] [id number] [place] [address] 30888- 0706 Dec, [facility] [address] 77294- 3976 Dec, Chronic pain G89.29 [facility] [id number] [place] [address] 21127- 0364 Nov, Chronic pain G89.29 [facility] [id number] [place] [address] 62304- 7635 Nov, [facility] [id number] [place] [address] 19779- 3587 Nov, IBS (irritable bowel syndrome) K58.9 ; Rectal irritation K62.89 and Chronic pain G89.29 [facility] [id number] [place] [address] 96173- 4402 Oct, Chronic pain G89.29 and IBS (irritable bowel syndrome) K58.9 [facility] [id number] [place] [address] 58389- 3741 Sep, Chronic pain G89.29 and Fungal infection B49 [facility] [id number] [place] [address] 85839- 0386 Sep, Chronic pain G89.29 [facility] [id number] [place] [address] 01192- 0045 Aug, Chronic pain G89.29 [facility] [id number] [place] [address] 65614- 7967 05 Jul, 2017 Chronic pain G89.29 [facility] [id number] [place] [address] 93495- 0688 07 Jun, 2017 Chronic pain G89.29 [facility] [facility] [id number] [place] [address] 71664- 7808 May, Herniation of intervertebral disc between L4 and L5 M51.26 and Over weight E66.3 [facility] [id number] [place] [address] 01958- 2004 Apr, Over weight E66.3 [facility] [id number] [place] [address] 62194- 3197 Apr, IBS (irritable bowel syndrome) K58.9 ; Depression F32.9 ; Herniation of intervertebral disc between L4 and L5 M51.26 and Bilateral headaches R51 [facility] [id number] [place] [address] 88734- 4244 Apr, [place] [facility] [id number] [place] [address] 43982- 6775 Apr, [facility] [id number] [place] [address] 13395- 8786 10 Dec, 2016 Herniation of intervertebral disc between L4 and L5 M51.26 and Depression F32.9 [facility] [id number] [place] [address] 91693- 0425 Nov, Herniation of intervertebral disc between L4 and L5 M51.26 and IBS (irritable bowel syndrome) K58.9 [facility] [id number] [place] [address] 85807- 3935 Oct, [place] [id number] [place] [address] 19861- 3468 Aug, Physical exam Z00.00 ; IBS (irritable bowel syndrome) K58.9 ; Depression F32.9 and Herniation of intervertebral disc between L4 and L5 M51.26 [facility] [id number] [place] [address] 17602- 7030 Aug, Depression F32.9 [facility] [id number] [place] [address] 51946- 5257 Jul, [facility] [id number] [place] [address] 58093- 3972 Jun, IBS (irritable bowel syndrome) K58.9 ; Depression F32.9 ; Herniation of intervertebral disc between L4 and L5 M51.26 and Bilateral headaches R51 [facility] [id number] [place] [address] 45948- 2007 March, Chronic pain G89.29 [facility] [id number] [place] [address] 03887- 2858 Jan, Chronic pain G89.29 [facility] [id number] [place] [address] 46047- 0865 Jan, [facility] [id number] [place] [address] 24938- 6491 Jan, [facility] [id number] [place] [address] 16957- 0987 Dec, IBS (irritable bowel syndrome) K58.9 ; Depression F32.9 and Herniation of intervertebral disc between L4 and L5 M51.26 [facility] [id number] [place] [address] 27862- 0635 Dec, [facility] [id number] [place] [address] 58645- 0738 Dec, [facility] [id number] [place] [address] 77971- 6411 Dec, [facility] [id number] [place] [address] 03996- 7472 Dec, [facility] [id number] [place] [address] 38469- 9998 Nov, [facility] [address] [address]- 9743 13 Nov, 2015 [facility] [id number] [place] [address] 25117- 4850 Nov, [facility] [id number] [place] [address] 01883- 3790 Nov, Heavy tobacco smoker >10 cigarettes per day F17.210 [facility] [id number] [place] [address] 02972- 3723 08 Nov, 2015 Chronic pain G89.29 [facility] [id number] [place] [address] 77453- 4282 Nov, [facility] [id number] [place] [address] 83966- 9845 Oct, [facility] [id number] [place] [address] 09527- 4792 Oct, [facility] [id number] [place] [address] 97531- 6456 18 Oct, 2015 Pilonidal cyst without mention of abscess 685.1 ; IBS ( irritable bowel syndrome) K58.9 ; Rectal irritation K62.89 and Depression F32.9 [facility] [address] [place] [address] 04149- 7408 Oct, [facility] [id number] [place] [address] 91393- 9587 27 Sep, 2015 [facility] [id number] [place] [address] 93535- 3650 16 Sep, 2015 [facility] [id number] [place] [address] 73645- 5945 13 Sep, 2015 IBS (irritable bowel syndrome) K58.9 and Rectal irritation K62.89 [facility] [id number] [place] [address] 57668- 8070 14 Jan, 2015 [facility] [id number] [address]- 8166 Jan, [facility] [id number] [address]- 9919 Dec, [facility] [id number] [address]- 5936 Dec, [facility] [address] [address]- 6536 Dec, [facility] [address] [address]- 5647 Nov, [facility] [id number] [address]- 7736 Aug, IMMUNIZATIONS No Known Immunizations SOCIAL HISTORY [...]
--- OUTSIDE RECORDS SUMMARY | 2018-08-14 05:27 | XMS REPORT ---
Author Author ALYSON CARMEN [facility] Address [address] [place] [address] Care Team Providers Care Attache Name Role Phone ALYSON CARMEN Unavailable PROBLEMS Type Condition ICD9-CM Code QTQ55-WC Code Onset Dates Condition Status SNOMED Code Problem Tobacco dependence F17.200 Active 16237410 Problem Chronic pain G89.29 Active 37976312 Problem Bilateral headaches R51 Active 790152759 Problem IBS (irritable bowel syndrome) K58.9 Active 75613152 Problem Rectal irritation K62.89 Active 38177908 Problem Herniation of intervertebral disc between L4 and L5 M51.26 Active 453687275 Problem Depression F32.9 Active 01760644 ALLERGIES No Information ENCOUNTERS Encounter Location Date Diagnosis [place] [id number] [place] [address] 85232- 3812 Jun, [facility] [address] 62420- 5877 May, Herniation of intervertebral disc between L4 and L5 M51.26 [facility] [id number] [place] [address] 95368- 1346 17 May, 2018 Chronic pain G89.29 [facility] [id number] [place] [address] 96757- 5061 May, [facility] [id number] [place] [address] 50337- 9833 Apr, Chronic pain G89.29 [facility] [id number] [place] [address] 51451- 4310 March, Chronic pain G89.29 [facility] [id number] [place] [address] 06621- 2602 Jan, Chronic pain G89.29 and IBS (irritable bowel syndrome) K58.9 [facility] [id number] [place] [address] 45352- 1878 Dec, Chronic pain G89.29 [facility] [id number] [place] [address] 38669- 8112 Dec, Chronic pain G89.29 [facility] [id number] [place] [address] 32006- 4867 Dec, [facility] [id number] [place] [address] 64239- 7351 Dec, Chronic pain G89.29 [facility] [address] 11309- 1753 Nov, Chronic pain G89.29 [facility] [id number] [place] [address] 56384- 2048 Nov, [facility] [address] 47271- 7200 Nov, IBS (irritable bowel syndrome) K58.9 ; Rectal irritation K62.89 and Chronic pain G89.29 [facility] [id number] [place] [address] 53263- 6078 Oct, Chronic pain G89.29 and IBS (irritable bowel syndrome) K58.9 [facility] [id number] [place] [address] 37444- 2130 Sep, Chronic pain G89.29 and Fungal infection B49 [facility] [id number] [place] [address] 29368- 8267 Sep, Chronic pain G89.29 [facility] [id number] [place] [address] 71544- 5900 05 Aug, 2017 Chronic pain G89.29 [facility] [id number] [place] [address] 45145- 2280 05 Jul, 2017 Chronic pain G89.29 [facility] [id number] [place] [address] 21655- 1887 07 Jun, 2017 Chronic pain G89.29 [facility] [id number] [place] [address] 78163- 4882 May, Herniation of intervertebral disc between L4 and L5 M51.26 and Over weight E66.3 [facility] [id number] [place] [address] 32473- 8896 Apr, Over weight E66.3 [facility] [id number] [place] [address] 92532- 5246 Apr, IBS (irritable bowel syndrome) K58.9 ; Depression F32.9 ; Herniation of intervertebral disc between L4 and L5 M51.26 and Bilateral headaches R51 [place] [id number] [place] [address] 59166- 8932 Apr, [place] [id number] [place] [address] 69190- 8881 Apr, [facility] [id number] [place] [address] 56608- 8877 Dec, Herniation of intervertebral disc between L4 and L5 M51.26 and Depression F32.9 [facility] [address] [place] [address] 28069- 7531 Nov, Herniation of intervertebral disc between L4 and L5 M51.26 and IBS (irritable bowel syndrome) K58.9 [facility] [id number] [place] [address] 96360- 5993 Oct, [facility] [id number] [place] [address] 04568- 9782 Aug, Physical exam Z00.00 ; IBS (irritable bowel syndrome) K58.9 ; Depression F32.9 and Herniation of intervertebral disc between L4 and L5 M51.26 [facility] [address] [address]- 9991 07 Aug, 2016 Depression F32.9 [facility] [id number] [address]- 8303 Jul, [facility] [id number] [place] [address] 93204- 7593 Jun, IBS (irritable bowel syndrome) K58.9 ; Depression F32.9 ; Herniation of intervertebral disc between L4 and L5 M51.26 and Bilateral headaches R51 [facility] [id number] [place] [address] 63163- 6041 March, Chronic pain G89.29 [facility] [id number] [place] [address] 34938- 5185 Jan, Chronic pain G89.29 [facility] [id number] [place] [address] 40890- 0161 Jan, [facility] [id number] [place] [address] 48890- 2111 Jan, [facility] [id number] [place] [address] 31578- 6085 Dec, IBS (irritable bowel syndrome) K58.9 ; Depression F32.9 and Herniation of intervertebral disc between L4 and L5 M51.26 [facility] [address] [address]- 2912 Dec, [facility] [address] [address]- 5142 Dec, [facility] [id number] [place] [address] 27516- 9051 Dec, [facility] [id number] [address]- 8643 Dec, [facility] [id number] [place] [address] 51119- 9229 Nov, [facility] [address] [address]- 0926 Nov, [facility] [id number] [place] [address] 39291- 2942 Nov, [facility] [id number] [place] [address] 20469- 7704 Nov, Heavy tobacco smoker >10 cigarettes per day F17.210 [facility] [id number] [place] [address] 21671- 8370 08 Nov, 2015 Chronic pain G89.29 [facility] [address] 67439- 0391 08 Nov, 2015 [facility] [id number] [place] [address] 66886- 9732 Oct, [facility] [id number] [place] [address] 46360- 2230 Oct, [facility] [id number] [place] [address] 39680- 4416 18 Oct, 2015 Pilonidal cyst without mention of abscess 685.1 ; IBS ( irritable bowel syndrome) K58.9 ; Rectal irritation K62.89 and Depression F32.9 [facility] [id number] [place] [address] 63993- 7454 Oct, [facility] [id number] [place] [address] 92630- 0656 27 Sep, 2015 [facility] [id number] [place] [address] 13203- 1984 16 Sep, 2015 [facility] [id number] [place] [address] 10129- 9005 13 Sep, 2015 IBS (irritable bowel syndrome) K58.9 and Rectal irritation K62.89 [facility] [id number] [place] [address] 36774- 9444 14 Jan, 2015 [facility] [id number] [place] [address] 38254- 2249 13 Jan, 2015 [facility] [id number] [place] [address] 06838- 2546 Dec, [facility] [address] [facility] [id number] [address]- 2546 Dec, [facility] [address] [facility] [id number] [place] [address]- 2546 Dec, [facility] [address] [facility] [id number] [place] [address]- 2546 Nov, [facility] [address] [facility] [id number] [place] [address]- 2546 Aug, IMMUNIZATIONS No Known Immunizations SOCIAL HISTORY Never Assessed REASON FOR VISIT Controlled Med Refill-01/26/18 PLAN OF CARE VITAL SIGNS MEDICATIONS Medication [...]
--- OUTSIDE RECORDS SUMMARY | 2018-08-14 05:27 | XMS REPORT ---
Author Author ALYSON CARMEN [facility] Address [address] [place] [address] Care Team Providers Care Portfolio Administrator Name Role Phone ALYSON CARMEN Unavailable PROBLEMS Type Condition ICD9-CM Code ZNN14-IC Code Onset Dates Condition Status SNOMED Code Problem Tobacco dependence F17.200 Active 16949859 Problem Chronic pain G89.29 Active 51433020 Problem Bilateral headaches R51 Active 848895854 Problem IBS (irritable bowel syndrome) K58.9 Active 69443514 Problem Rectal irritation K62.89 Active 08781726 Problem Herniation of intervertebral disc between L4 and L5 M51.26 Active 200832025 Problem Depression F32.9 Active 02323987 ALLERGIES No Information ENCOUNTERS Encounter Location Date Diagnosis [facility] [address] [address]- [address] May, [facility] [address] 9[address]70- 1179 Apr, Chronic pain G89.29 [facility] [address] 17383- 3936 March, Chronic pain G89.29 [facility] [address] 92809- 5976 Jan, Chronic pain G89.29 and IBS (irritable bowel syndrome) K58.9 [facility] [id number] [place] [address] 07945- 3296 Dec, Chronic pain G89.29 [facility] [address] 50103- 8011 Dec, Chronic pain G89.29 [facility] [address] 45446- 3913 Dec, [facility] [id number] [place] [address] 23658- 7979 Dec, Chronic pain G89.29 [facility] [id number] [place] [address] 80337- 6885 Nov, Chronic pain G89.29 [facility] [id number] [place] [address] 24536- 9889 Nov, [facility] [id number] [place] [address] 96154- 6415 Nov, IBS (irritable bowel syndrome) K58.9 ; Rectal irritation K62.89 and Chronic pain G89.29 [facility] [id number] [place] [address] 13713- 5735 Oct, Chronic pain G89.29 and IBS (irritable bowel syndrome) K58.9 [facility] [id number] [place] [address] 00198- 9614 Sep, Chronic pain G89.29 and Fungal infection B49 [facility] [id number] [place] [address] 88348- 7605 Sep, Chronic pain G89.29 [facility] [id number] [place] [address] 59656- 1395 05 Aug, 2017 Chronic pain G89.29 [facility] [id number] [place] [address] 24664- 9602 05 Jul, 2017 Chronic pain G89.29 [facility] [id number] [place] [address] 44460- 3479 Jun, Chronic pain G89.29 [facility] [id number] [place] [address] 77668- 0665 May, Herniation of intervertebral disc between L4 and L5 M51.26 and Over weight E66.3 [facility] [id number] [place] [address] 78844- 1550 Apr, Over weight E66.3 [facility] [id number] [place] [address] 78642- 8560 23 Apr, 2017 IBS (irritable bowel syndrome) K58.9 ; Depression F32.9 ; Herniation of intervertebral disc between L4 and L5 M51.26 and Bilateral headaches R51 [facility] [id number] [place] [address] 06848- 5319 Apr, [facility] [address] 14085- 5443 Apr, [facility] [id number] [place] [address] 37303- 4709 Dec, Herniation of intervertebral disc between L4 and L5 M51.26 and Depression F32.9 [facility] [id number] [place] [address] 28687- 4922 Nov, Herniation of intervertebral disc between L4 and L5 M51.26 and IBS (irritable bowel syndrome) K58.9 [facility] [id number] [place] [address] 51971- 7950 Oct, [facility] [id number] [place] [address] 06472- 6002 Aug, Physical exam Z00.00 ; IBS (irritable bowel syndrome) K58.9 ; Depression F32.9 and Herniation of intervertebral disc between L4 and L5 M51.26 [facility] [id number] [place] [address] 36150- 6942 Aug, Depression F32.9 [facility] [id number] [place] [address] 89865- 4080 Jul, [facility] [id number] [place] [address] 57208- 0882 Jun, IBS (irritable bowel syndrome) K58.9 ; Depression F32.9 ; Herniation of intervertebral disc between L4 and L5 M51.26 and Bilateral headaches R51 [facility] [id number] [place] [address] 96245- 4660 March, Chronic pain G89.29 [facility] [id number] [place] [address] 29083- 2619 Jan, Chronic pain G89.29 [facility] [id number] [address] 5[address] Jan, [facility] [id number] [place] [address] 96951- 0586 Jan, [facility] [id number] [place] [address] 30428- 6531 Dec, IBS (irritable bowel syndrome) K58.9 ; Depression F32.9 and Herniation of intervertebral disc between L4 and L5 M51.26 [facility] [id number] [address]- 0589 Dec, [facility] [id number] [place] [address] 44597- 5344 Dec, [facility] [id number] [place] [address] 88048- 4435 Dec, [facility] [id number] [place] [address] 90811- 1146 Dec, [facility] [id number] [place] [address] 74625- 8627 Nov, [facility] [id number] [place] [address] 50191- 7447 Nov, [facility] [id number] [place] [address] 34042- 8097 Nov, [facility] [id number] [place] [address] 53137- 9562 Nov, Heavy tobacco smoker >10 cigarettes per day F17.210 [facility] [address] [address]- 2438 Nov, Chronic pain G89.29 [facility] [id number] [place] [address] 75220- 5406 08 Nov, 2015 [facility] [id number] [place] [address] 89092- 3079 Oct, [facility] [id number] [place] [address] 45935- 4719 Oct, [facility] [id number] [place] [address] 99537- 8507 Oct, Pilonidal cyst without mention of abscess 685.1 ; IBS ( irritable bowel syndrome) K58.9 ; Rectal irritation K62.89 and Depression F32.9 [facility] [address] 81778- 6890 Oct, [facility] [id number] [place] [address] 57376- 3776 Sep, [facility] [id number] [place] [address] 88427- 9018 16 Sep, 2015 [facility] [id number] [place] [address] 69589- 4601 Sep, IBS (irritable bowel syndrome) K58.9 and Rectal irritation K62.89 [facility] [id number] [place] [address] 47669- 0761 14 Jan, 2015 [facility] [id number] [place] [address] 55261- 8731 Jan, [facility] [id number] [place] [address] 92494- 3694 Dec, [facility] [id number] [place] [address] 10928- 0453 Dec, [facility] [id number] [place] [address] 20857- 7234 Dec, [facility] [id number] [place] [address] 07058- 4850 Nov, [facility] [address] [facility] [id number] [place] [address]- 5792 Aug, IMMUNIZATIONS No Known Immunizations SOCIAL HISTORY Never Assessed REASON FOR VISIT GI Referral PLAN OF CARE VITAL SIGNS MEDICATIONS Unknown [...]
--- OUTSIDE RECORDS SUMMARY | 2018-08-14 05:27 | XMS REPORT ---
Author Author ALYSON CARMEN [facility] Address [address] [place] [address] Care Team Providers Care Healthcare Facility Administrator Name Role Phone ALYSON CARMEN Unavailable PROBLEMS Type Condition ICD9-CM Code FKV71-SF Code Onset Dates Condition Status SNOMED Code Problem Tobacco dependence F17.200 Active 95076401 Problem Chronic pain G89.29 Active 91803942 Problem Bilateral headaches R51 Active 341030127 Problem IBS (irritable bowel syndrome) K58.9 Active 36683462 Problem Rectal irritation K62.89 Active 39418405 Problem Herniation of intervertebral disc between L4 and L5 M51.26 Active 817592944 Problem Depression F32.9 Active 17850603 ALLERGIES Substance Reaction Event Type Date Status Codeine Unknown Drug Allergy Sep, Active ENCOUNTERS Encounter Location Date Diagnosis [facility] [place] [id number] [place] [address] 95666- 5294 Jun, [facility] [place] [id number] [place] [address] 02145- 0327 May, Herniation of intervertebral disc between L4 and L5 M51.26 [facility] [place] [id number] [place] [address] 27833- 9060 17 May, 2018 Chronic pain G89.29 [facility] [place] [id number] [place] [address] 77664- 0620 May, [facility] [place] [id number] [place] [address] 82852- 9401 Apr, Chronic pain G89.29 [facility] [place] [id number] [place] [address] 10700- 0368 March, Chronic pain G89.29 [facility] [place] [id number] [place] [address] 52045- 7230 Jan, Chronic pain G89.29 and IBS (irritable bowel syndrome) K58.9 [facility] [place] [id number] [place] [address] 68219- 2654 Dec, Chronic pain G89.29 [facility] [place] [id number] [place] [address] 14795- 6467 Dec, Chronic pain G89.29 [facility] [place] [id number] [place] [address] 76642- 2530 Dec, [facility] [place] [id number] [place] [address] 25356- 9507 Dec, Chronic pain G89.29 [facility] [place] [id number] [place] [address] 10022- 1894 Nov, Chronic pain G89.29 [facility] [place] [id number] [place] [address] 36741- 2422 Nov, [facility] [place] [id number] [place] [address] 34465- 3569 Nov, IBS (irritable bowel syndrome) K58.9 ; Rectal irritation K62.89 and Chronic pain G89.29 [facility] [place] [id number] [place] [address] 71797- 4160 Oct, Chronic pain G89.29 and IBS (irritable bowel syndrome) K58.9 [facility] [place] [id number] [place] [address] 93049- 2145 Sep, Chronic pain G89.29 and Fungal infection B49 [facility] [place] [id number] [place] [address] 57901- 5630 Sep, Chronic pain G89.29 [facility] [place] [id number] [place] [address] 93710- 7482 Aug, Chronic pain G89.29 [facility] [place] [id number] [place] [address] 58231- 7964 Jul, Chronic pain G89.29 [facility] [place] [id number] [place] [address] 58738- 9819 Jun, Chronic pain G89.29 [facility] [place] [id number] [place] [address] 81691- 3046 May, Herniation of intervertebral disc between L4 and L5 M51.26 and Over weight E66.3 [facility] [place] [id number] [place] [address] 90283- 2763 Apr, Over weight E66.3 [facility] [place] [id number] [place] [address] 79275- 4356 Apr, IBS (irritable bowel syndrome) K58.9 ; Depression F32.9 ; Herniation of intervertebral disc between L4 and L5 M51.26 and Bilateral headaches R51 [facility] [place] [id number] [place] [address] 00407- 9329 Apr, [facility] [place] [id number] [place] [address] 61171- 1803 Apr, [facility] [place] [id number] [place] [address] 47892- 4902 Dec, Herniation of intervertebral disc between L4 and L5 M51.26 and Depression F32.9 [facility] [place] [id number] [place] [address] 35361- 2269 Nov, Herniation of intervertebral disc between L4 and L5 M51.26 and IBS (irritable bowel syndrome) K58.9 [facility] [place] [id number] [place] [address] 96451- 6525 Oct, [facility] [place] [id number] [place] [address] 95029- 7989 Aug, Physical exam Z00.00 ; IBS (irritable bowel syndrome) K58.9 ; Depression F32.9 and Herniation of intervertebral disc between L4 and L5 M51.26 [facility] [place] [id number] [place] [address] 92359- 6081 Aug, Depression F32.9 [facility] [place] [id number] [place] [address] 80028- 4528 Jul, [facility] [place] [id number] [place] [address] 68145- 0956 Jun, IBS (irritable bowel syndrome) K58.9 ; Depression F32.9 ; Herniation of intervertebral disc between L4 and L5 M51.26 and Bilateral headaches R51 [facility] [place] [id number] [place] [address] 02838- 8950 March, Chronic pain G89.29 [facility] [place] [id number] [place] [address] 25183- 8191 Jan, Chronic pain G89.29 [facility] [place] [id number] [place] [address] 03361- 2906 Jan, [facility] [place] [id number] [place] [address] 32506- 8752 Jan, [facility] [place] [id number] [place] [address] 76636- 3923 Dec, IBS (irritable bowel syndrome) K58.9 ; Depression F32.9 and Herniation of intervertebral disc between L4 and L5 M51.26 [facility] [place] [id number] [place] [address] 56644- 6337 Dec, [facility] [place] [id number] [place] [address] 91807- 7487 Dec, [facility] [place] [id number] [place] [address] 62788- 1894 Dec, [facility] [place] [id number] [place] [address] 599623- 3133 Dec, [facility] [place] [id number] [place] [address] 50597- 3099 Nov, [facility] [place] [id number] [place] [address] 38243- 0198 Nov, [facility] [place] [address] [place] [address] 96441- 0397 Nov, [facility] [place] [id number] [place] [address] 93186- 4736 Nov, Heavy tobacco smoker >10 cigarettes per day F17.210 [facility] [place] [id number] [place] [address] 22553- 2924 Nov, Chronic pain G89.29 [facility] [place] [id number] [place] [address] 96832- 5907 Nov, [facility] [place] [id number] [place] [address] 33177- 2721 Oct, [facility] [place] [id number] [place] [address] 40607- 1788 Oct, [facility] [place] [id number] [place] [address] 66367- 4178 Oct, Pilonidal cyst without mention of abscess 685.1 ; IBS ( irritable bowel syndrome) K58.9 ; Rectal irritation K62.89 and Depression F32.9 [facility] [place] [id number] [place] [address] 42640- 3197 Oct, [facility] [place] [address] [place] [address] 20402- 3863 27 Sep, 2015 [facility] [place] [id number] [place] [address] 28109- 4581 16 Sep, 2015 [facility] [place] [id number] [place] [address] 69566- 4604 13 Sep, 2015 IBS (irritable bowel syndrome) K58.9 and Rectal irritation K62.89 [facility] [place] [id number] [place] [address] 01171- 5338 14 Jan, 2015 [facility] [place] [id number] [place] [address] 79231- 7086 13 Jan, 2015 [facility] [place] [address] [facility] [id number] [place] [address]- 9166 Dec, [facility] [place] [address] [facility] [id number] [address]- 9089 Dec, [facility] [place] [address] [facility] [id number], [place] [address]- 7896 Dec, [facility] [place] [address] [facility] [id number], [place] [address]- 1844 Nov, [facility] [place] [address] [facility] [id number]- 7445 Aug, IMMUNIZATIONS No Known Immunizations SOCIAL HISTORY Never Assessed REASON FOR VISIT Has a spot on his leg where he had poison catia a year ago and it has never fully healed and sometimes itches-Cristine PLAN OF CARE Activity Details Follow Up 3 Months with Reinaldo handy chronic pain Reason: VITAL SIGNS Height 70 in 2017-10-01 Weight 238.5 lbs 2017-10-01 Temperature 97.9 degrees Fahrenheit 2017-10-01 Heart Rate 78 bpm 2017-10-01 Respiratory Rate 18 2017-10-01 BMI 34.22 kg/m2 2017-10-01 Blood pressure systolic 126 mmHg 2017-10-01 Blood pressure diastolic 86 mmHg 2017-10-01 MEDICATIONS Medication Instructions Dosage Frequency Start Date End Date Duration Status Lomotil 2.5-0.025 MG Orally Four times a day 1 tablet as needed 6h 18 Jan, 2016 Active Gabapentin 300 MG Orally 2 times a day 1 capsule 12h Active BuPROPion HCl ER (SR) 150 MG TAKE TWO TABLETS BY MOUTH ONCE DAILY Active Tramadol HCl 50 mg Orally 3 times a day 1 tablet as needed 8h 28 days Active Wellbutrin SR 300 Orally Once a day 1 tablet 24h 13 Nov, 2015 30 days Not-Taking Bentyl 20 MG Orally Four times a [...]
--- OUTSIDE RECORDS SUMMARY | 2018-08-14 05:27 | XMS REPORT ---
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 Name Role Phone PJ Funk Unavailable PROBLEMS Type Condition ICD9-CM Code OJS53-MB Code Onset Dates Condition Status SNOMED Code Problem Tobacco dependence F17.200 Active 05880979 Problem Chronic pain G89.29 Active 27490484 Problem Bilateral headaches R51 Active 824791510 Problem IBS (irritable bowel syndrome) K58.9 Active 36577253 Problem Rectal irritation K62.89 Active 79139365 Problem Herniation of intervertebral disc between L4 and L5 M51.26 Active 358494556 Problem Depression F32.9 Active 09761319 ALLERGIES No Information ENCOUNTERS Encounter Location Date Diagnosis [facility] [id number] [place] [address] 29778- 2066 Dec, Chronic pain G89.29 [facility] [id number] [place] [address] 81608- 4839 Dec, Chronic pain G89.29 [facility] [id number] [place] [address] 75139- 6460 Dec, [facility] [id number] [place] [address] 56125- 2019 15 Dec, 2017 Chronic pain G89.29 [facility] [id number] [place] [address] 82050- 5086 Nov, Chronic pain G89.29 [facility] [id number] [place] [address] 18293- 6763 Nov, [facility] [id number] [place] [address] 93193- 4124 Nov, IBS (irritable bowel syndrome) K58.9 ; Rectal irritation K62.89 and Chronic pain G89.29 [facility] [id number] [place] [address] 16317- 4790 Oct, Chronic pain G89.29 and IBS (irritable bowel syndrome) K58.9 [facility] [address] 91608- 6012 Sep, Chronic pain G89.29 and Fungal infection B49 [facility] [address] 59887- 2032 Sep, Chronic pain G89.29 [facility] [address] 16286- 0624 Aug, Chronic pain G89.29 [facility] [address] 74632- 9869 Jul, Chronic pain G89.29 [facility] [address] 78226- 4449 Jun, Chronic pain G89.29 [facility] [address] 04654- 7736 May, Herniation of intervertebral disc between L4 and L5 M51.26 and Over weight E66.3 [place] [address] 41554- 9416 Apr, Over weight E66.3 [facility] [address] 17652- 0753 Apr, IBS (irritable bowel syndrome) K58.9 ; Depression F32.9 ; Herniation of intervertebral disc between L4 and L5 M51.26 and Bilateral headaches R51 [facility] [address] 19283- 7383 Apr, [facility] [address] 19239- 5713 Apr, [facility] [address] [place] [address]- 3541 10 Dec, 2016 Herniation of intervertebral disc between L4 and L5 M51.26 and Depression F32.9 [facility] [address] 07163- 2092 Nov, Herniation of intervertebral disc between L4 and L5 M51.26 and IBS (irritable bowel syndrome) K58.9 [facility] [address] 20276- 4903 Oct, [facility] [address] 86399- 7129 Aug, Physical exam Z00.00 ; IBS (irritable bowel syndrome) K58.9 ; Depression F32.9 and Herniation of intervertebral disc between L4 and L5 M51.26 [place] [address] 56925- 3246 Aug, Depression F32.9 [facility] [address] 52780- 2643 Jul, [facility] [address] 93958- 2085 Jun, IBS (irritable bowel syndrome) K58.9 ; Depression F32.9 ; Herniation of intervertebral disc between L4 and L5 M51.26 and Bilateral headaches R51 [place] [id number] [place] [address] 98924- 1564 March, Chronic pain G89.29 [facility] [id number] [place] [address] 88169- 0506 Jan, Chronic pain G89.29 [facility] [address] 29352- 7865 Jan, [facility] [id number] [place] [address] 38368- 3271 Jan, [facility] [address] 22246- 8327 Dec, IBS (irritable bowel syndrome) K58.9 ; Depression F32.9 and Herniation of intervertebral disc between L4 and L5 M51.26 [facility] [id number] [place] [address] 76185- 5206 Dec, [facility] [id number] [place] [address] 68623- 8523 Dec, [facility] [id number] [place] [address] 01313- 7447 Dec, [facility] [id number] [place] [address] 14729- 2154 Dec, [facility] [id number] [place] [address] 05609- 8417 Nov, [facility] [id number] [place] [address] 59927- 6534 Nov, [facility] [id number] [place] [address] 11560- 5245 Nov, [facility] [id number] [place] [address] 85497- 1600 Nov, Heavy tobacco smoker >10 cigarettes per day F17.210 [facility] [id number] [place] [address] 51569- 7757 Nov, Chronic pain G89.29 [facility] [id number] [place] [address] 74293- 7882 Nov, [facility] [id number] [place] [address] 74700- 5484 Oct, [facility] [id number] [place] [address] 73284- 6319 Oct, [facility] [id number] [place] [address] 28995- 1371 Oct, Pilonidal cyst without mention of abscess 685.1 ; IBS ( irritable bowel syndrome) K58.9 ; Rectal irritation K62.89 and Depression F32.9 [facility] [address] [place] [address]- 3311 Oct, [facility] [id number] [place] [address] 43561- 3618 Sep, [facility] [id number] [place] [address] 36607- 4811 Sep, [facility] [id number] [place] [address] 94607- 8903 Sep, IBS (irritable bowel syndrome) K58.9 and Rectal irritation K62.89 [facility] [id number] [place] [address] 72648- 0463 Jan, [facility] [id number] [place] [address] 95144- 4029 Jan, [facility] [id number] [place] [address] 73312- 7761 Dec, [facility] [id number] [place] [address] 14997- 3791 Dec, [facility] [id number] [place] [address] 35071- 5927 Dec, [facility] [address] [place] [address]- 5185 Nov, [facility] [id number] [place] [address] 436461- 9466 Aug, IMMUNIZATIONS No Known Immunizations SOCIAL HISTORY Never Assessed REASON FOR VISIT Tramadol PLAN OF CARE VITAL SIGNS MEDICATIONS Medication [...]
--- OUTSIDE RECORDS SUMMARY | 2018-08-14 05:28 | XMS REPORT ---
Author Author KIERRA ENGLISH [facility] Address [address] [place] [address] Care Team Providers Care Counselor Marriage And Family Name Role Phone KIERRA ENGLISH Unavailable PROBLEMS Type Condition ICD9-CM Code LKE60-VQ Code Onset Dates Condition Status SNOMED Code Problem Tobacco dependence F17.200 Active 99227627 Problem Chronic pain G89.29 Active 90883801 Problem Bilateral headaches R51 Active 904822884 Problem IBS (irritable bowel syndrome) K58.9 Active 42474165 Problem Rectal irritation K62.89 Active 85877904 Problem Herniation of intervertebral disc between L4 and L5 M51.26 Active 580942639 Problem Depression F32.9 Active 59018969 ALLERGIES No Information ENCOUNTERS Encounter Location Date Diagnosis [facility] [address] 30729- 7225 Jan, Chronic pain G89.29 and IBS (irritable bowel syndrome) K58.9 [facility] [address] 68087- 9516 Dec, Chronic pain G89.29 [facility] [id number] [place] [address] 78911- 5726 Dec, Chronic pain G89.29 [facility] [address] 58617- 6434 Dec, [facility] [address] 56744- 2663 15 Dec, 2017 Chronic pain G89.29 [facility] [address] 35021- 9468 Nov, Chronic pain G89.29 [facility] [address] 44046- 1349 Nov, [facility] [id number] [place] [address] 70352- 7979 Nov, IBS (irritable bowel syndrome) K58.9 ; Rectal irritation K62.89 and Chronic pain G89.29 [facility] [id number] [place] [address] 51501- 0890 Oct, Chronic pain G89.29 and IBS (irritable bowel syndrome) K58.9 [facility] [address] 57870- 4119 Sep, Chronic pain G89.29 and Fungal infection B49 [facility] [address] 70584- 5688 Sep, Chronic pain G89.29 [facility] [id number] [place] [address] 21944- 7421 Aug, Chronic pain G89.29 [facility] [address] 98055- 6677 Jul, Chronic pain G89.29 [facility] [address] 63994- 8693 Jun, Chronic pain G89.29 [facility] [address] [place] [address] 75691- 8454 May, Herniation of intervertebral disc between L4 and L5 M51.26 and Over weight E66.3 [facility] [address] [place] [address] 51436- 0343 Apr, Over weight E66.3 [facility] [address] 33942- 8729 Apr, IBS (irritable bowel syndrome) K58.9 ; Depression F32.9 ; Herniation of intervertebral disc between L4 and L5 M51.26 and Bilateral headaches R51 [facility] [id number] [place] [address] 19012- 1736 Apr, [facility] [address] [place] [address] 97792- 5941 Apr, [facility] [address] 91313- 8309 Dec, Herniation of intervertebral disc between L4 and L5 M51.26 and Depression F32.9 [facility] [address] 58186- 2403 Nov, Herniation of intervertebral disc between L4 and L5 M51.26 and IBS (irritable bowel syndrome) K58.9 [place] [address] [place] [address] 18621- 5168 Oct, [place] [address] 61365- 0190 Aug, Physical exam Z00.00 ; IBS (irritable bowel syndrome) K58.9 ; Depression F32.9 and Herniation of intervertebral disc between L4 and L5 M51.26 [place] [address] [place] [address] 22289- 5548 Aug, Depression F32.9 [place] [address] 03555- 7498 Jul, [place] [address] [place] [address] 37993- 2542 Jun, IBS (irritable bowel syndrome) K58.9 ; Depression F32.9 ; Herniation of intervertebral disc between L4 and L5 M51.26 and Bilateral headaches R51 [place] [address] [place] [address] 09466- 3308 March, Chronic pain G89.29 [place] [address] 25225- 8746 Jan, Chronic pain G89.29 [place] [address] [place] [address] 74952- 6252 Jan, [facility] [address] 94922- 2816 Jan, [facility] [address] [place] [address]- 2303 Dec, IBS (irritable bowel syndrome) K58.9 ; Depression F32.9 and Herniation of intervertebral disc between L4 and L5 M51.26 [facility] [address] [address]- 8016 Dec, [facility] [address] [place] [address] 78315- 8821 Dec, [facility] [address] [place] [address] 54541- 4310 Dec, [facility] [address] [place] [address] 862911- 9927 Dec, [facility] [address] [place] [address] 37612- 7494 Nov, [facility] [address] [place] [address] 04505- 8035 Nov, [facility] [address] [place] [address] 89405- 0646 Nov, [facility] [address] [place] [address] 52672- 2792 Nov, Heavy tobacco smoker >10 cigarettes per day F17.210 [facility] [address] [place] [address] 25299- 9326 Nov, Chronic pain G89.29 [facility] [address] [address]- 6567 Nov, [facility] [address] [place] [address] 32259- 0423 Oct, [facility] [address] [place] [address] 29597- 9016 Oct, [facility] [address] [place] [address] 75591- 4449 Oct, Pilonidal cyst without mention of abscess 685.1 ; IBS ( irritable bowel syndrome) K58.9 ; Rectal irritation K62.89 and Depression F32.9 [place] [address] [place] [address] 33423- 6016 Oct, [facility] [address] [place] [address] 08245- 3492 Sep, [place] [address] 751666- 3013 Sep, [place] [address] 241225- 2252 Sep, IBS (irritable bowel syndrome) K58.9 and Rectal irritation K62.89 [place] [address] [place] [address] 88611- 9112 Jan, [place] [address] 24640- 4400 Jan, [place] [address] [place] [address] 13412- 7299 Dec, [place] [address] [place] [address] 11988- 5727 Dec, [place] [address] [place] [address] 94774- 2100 Dec, [place] [address] [place] [address] 60706- 0544 Nov, [place] [address] [place] [address] 35362- 9186 Aug, IMMUNIZATIONS No Known Immunizations SOCIAL HISTORY [...]
--- OUTSIDE RECORDS SUMMARY | 2018-08-14 05:28 | XMS REPORT ---
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 Name Role Phone ALYSON CARMEN Unavailable PROBLEMS Type Condition ICD9-CM Code DXY34-HW Code Onset Dates Condition Status SNOMED Code Problem Tobacco dependence F17.200 Active 36640128 Problem Chronic pain G89.29 Active 28212628 Problem Bilateral headaches R51 Active 534231135 Problem IBS (irritable bowel syndrome) K58.9 Active 88737208 Problem Rectal irritation K62.89 Active 49657772 Problem Herniation of intervertebral disc between L4 and L5 M51.26 Active 772365027 Problem Depression F32.9 Active 36054109 ALLERGIES No Information ENCOUNTERS Encounter Location Date Diagnosis [facility] [address] 66608- 0141 May, [facility] [address] 06614- 2834 Apr, Chronic pain G89.29 [facility] [address] 37035- 7672 March, Chronic pain G89.29 [facility] [address] 39168- 3820 Jan, Chronic pain G89.29 and IBS (irritable bowel syndrome) K58.9 [facility] [id number] [place] [address] 90872- 4672 Dec, Chronic pain G89.29 [facility] [address] 08586- 0668 Dec, Chronic pain G89.29 [facility] [address] 80856- 6562 Dec, [facility] [address] [place] [address] 78737- 1552 Dec, Chronic pain G89.29 [facility] [id number] [place] [address] 41132- 1276 Nov, Chronic pain G89.29 [facility] [id number] [place] [address] 93339- 8505 Nov, [facility] [id number] [place] [address] 45524- 0610 Nov, IBS (irritable bowel syndrome) K58.9 ; Rectal irritation K62.89 and Chronic pain G89.29 [facility] [id number] [place] [address] 06634- 2922 Oct, Chronic pain G89.29 and IBS (irritable bowel syndrome) K58.9 [facility] [id number] [place] [address] 28538- 8823 Sep, Chronic pain G89.29 and Fungal infection B49 [facility] [id number] [place] [address] 84060- 1822 Sep, Chronic pain G89.29 [facility] [id number] [place] [address] 43475- 1584 05 Aug, 2017 Chronic pain G89.29 [facility] [id number] [place] [address] 79837- 5843 05 Jul, 2017 Chronic pain G89.29 [facility] [id number] [place] [address] 33426- 3614 Jun, Chronic pain G89.29 [facility] [id number] [place] [address] 24566- 8386 May, Herniation of intervertebral disc between L4 and L5 M51.26 and Over weight E66.3 [facility] [id number] [place] [address] 86332- 6581 Apr, Over weight E66.3 [facility] [id number] [place] [address] 57060- 7051 23 Apr, 2017 IBS (irritable bowel syndrome) K58.9 ; Depression F32.9 ; Herniation of intervertebral disc between L4 and L5 M51.26 and Bilateral headaches R51 [facility] [id number] [place] [address] 47418- 6779 Apr, [facility] [address] 10676- 6003 Apr, [facility] [id number] [place] [address] 95517- 0466 Dec, Herniation of intervertebral disc between L4 and L5 M51.26 and Depression F32.9 [place] [id number] [place] [address] 13978- 9891 Nov, Herniation of intervertebral disc between L4 and L5 M51.26 and IBS (irritable bowel syndrome) K58.9 [facility] [id number] [place] [address] 18334- 5053 Oct, [place] [id number] [place] [address] 81003- 1108 Aug, Physical exam Z00.00 ; IBS (irritable bowel syndrome) K58.9 ; Depression F32.9 and Herniation of intervertebral disc between L4 and L5 M51.26 [facility] [id number] [place] [address] 99141- 0798 Aug, Depression F32.9 [facility] [id number] [place] [address] 72904- 1937 Jul, [facility] [id number] [place] [address] 44137- 5076 Jun, IBS (irritable bowel syndrome) K58.9 ; Depression F32.9 ; Herniation of intervertebral disc between L4 and L5 M51.26 and Bilateral headaches R51 [facility] [id number] [place] [address] 40119- 9374 March, Chronic pain G89.29 [facility] [id number] [place] [address] 32792- 2429 Jan, Chronic pain G89.29 [facility] [id number] [address]- 4381 Jan, [facility] [id number] [place] [address] 68089- 0166 Jan, [facility] [id number] [place] [address] 01042- 1265 Dec, IBS (irritable bowel syndrome) K58.9 ; Depression F32.9 and Herniation of intervertebral disc between L4 and L5 M51.26 [facility] [id number] [address]- 6057 Dec, [facility] [id number] [place] [address] 48618- 2819 Dec, [facility] [id number] [place] [address] 66386- 5210 Dec, [facility] [id number] [place] [address] 12728- 2844 Dec, [facility] [address] [place] [address] 29241- 7978 Nov, [facility] [id number] [place] [address] 42898- 3291 Nov, [facility] [address] [place] [address] 81364- 3756 Nov, [facility] [id number] [place] [address] 07662- 9125 Nov, Heavy tobacco smoker >10 cigarettes per day F17.210 [facility] [address], [place] [address]- 9052 Nov, Chronic pain G89.29 [facility] [id number] [place] [address] 36372- 7592 08 Nov, 2015 [facility] [id number] [place] [address] 96621- 9455 Oct, [facility] [id number] [place] [address] 37608- 5616 Oct, [facility] [id number] [place] [address] 87871- 8572 Oct, Pilonidal cyst without mention of abscess 685.1 ; IBS ( irritable bowel syndrome) K58.9 ; Rectal irritation K62.89 and Depression F32.9 [facility] [address] 71754- 0056 Oct, [facility] [id number] [place] [address] 33625- 2297 Sep, [facility] [id number] [place] [address] 60179- 9477 16 Sep, 2015 [facility] [id number] [place] [address] 76324- 8319 Sep, IBS (irritable bowel syndrome) K58.9 and Rectal irritation K62.89 [facility] [id number] [place] [address] 97850- 1492 14 Jan, 2015 [facility] [id number] [place] [address] 25490- 3588 Jan, [facility] [id number] [place] [address] 90031- 7712 Dec, [facility] [id number] [place] [address] 07917- 0101 Dec, [facility] [id number] [place] [address] 17234- 4673 Dec, [facility] [id number] [place] [phone] Nov, [facility] [address] [facility] [id number] [place] [phone] Aug, IMMUNIZATIONS No Known Immunizations SOCIAL HISTORY Never Assessed REASON FOR VISIT DIONY Hernandez PLAN OF CARE VITAL SIGNS MEDICATIONS Unknown Medications RESULTS Name Result Date Reference Range [employer] 2017-12-17 PROCEDURES Procedure Date Ordered Result Body Site No Charge Dec 17, 2017 INSTRUCTIONS MEDICATIONS ADMINISTERED No Known Medications MEDICAL (GENERAL) HISTORY Type Description Date Medical History Irritable bowel syndrome without diarrhea Medical History Hypertension Surgical History bilat knee replacement 2008 Surgical History anal fissure 2006 Surgical History appendectomy 2006 Surgical History inguinal hernia repair 1988
--- OUTSIDE RECORDS SUMMARY | 2018-08-14 05:28 | XMS REPORT ---
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 Role Phone ALYSON CARMEN Unavailable PROBLEMS Type Condition ICD9-CM Code ZQT21-MJ Code Onset Dates Condition Status SNOMED Code Problem Tobacco dependence F17.200 Active 35209473 Problem Chronic pain G89.29 Active 57635788 Problem Bilateral headaches R51 Active 138044347 Problem IBS (irritable bowel syndrome) K58.9 Active 97514646 Problem Rectal irritation K62.89 Active 33419073 Problem Herniation of intervertebral disc between L4 and L5 M51.26 Active 761270816 Problem Depression F32.9 Active 93887833 ALLERGIES No Information ENCOUNTERS Encounter Location Date Diagnosis [facility], [place] [address] [address] May, [facility], [place] [address] 87458- 5756 Apr, Chronic pain G89.29 [facility], [place] [address] 48[address]- 2046 March, Chronic pain G89.29 [facility], [place] [address] 6[address]12- 6656 Jan, Chronic pain G89.29 and IBS (irritable bowel syndrome) K58.9 [facility], [place] [id number] [place] [address] 62554- 1847 Dec, Chronic pain G89.29 [facility], [place] [address] 18571- 3340 Dec, Chronic pain G89.29 [facility], [place] [address] 15025- 0666 Dec, [facility], [place] [id number] [place] [address] 68314- 2290 Dec, Chronic pain G89.29 [facility], [place] [id number] [place] [address] 23599- 4837 Nov, Chronic pain G89.29 [facility], [place] [id number] [place] [address] 21036- 6140 Nov, [facility], [place] [id number] [place] [address] 07959- 6932 Nov, IBS (irritable bowel syndrome) K58.9 ; Rectal irritation K62.89 and Chronic pain G89.29 [facility], [place] [id number] [place] [address] 12148- 9473 Oct, Chronic pain G89.29 and IBS (irritable bowel syndrome) K58.9 [facility], [place] [id number] [place] [address] 73462- 9056 Sep, Chronic pain G89.29 and Fungal infection B49 [facility], [place] [id number] [place] [address] 25006- 9161 Sep, Chronic pain G89.29 [facility], [place] [id number] [place] [address] 87344- 4422 05 Aug, 2017 Chronic pain G89.29 [facility], [place] [id number] [place] [address] 16330- 5453 05 Jul, 2017 Chronic pain G89.29 [facility], [place] [id number] [place] [address] 72607- 6159 Jun, Chronic pain G89.29 [facility], [place] [id number] [place] [address] 46307- 4598 May, Herniation of intervertebral disc between L4 and L5 M51.26 and Over weight E66.3 [facility], [place] [id number] [place] [address] 25124- 5629 Apr, Over weight E66.3 [facility], [place] [id number] [place] [address] 15753- 2077 23 Apr, 2017 IBS (irritable bowel syndrome) K58.9 ; Depression F32.9 ; Herniation of intervertebral disc between L4 and L5 M51.26 and Bilateral headaches R51 [facility], [place] [id number] [place] [address] 18558- 7786 Apr, [facility], [place] [address] 41860- 5211 Apr, [facility], [place] [id number] [place] [address] 99007- 4884 Dec, Herniation of intervertebral disc between L4 and L5 M51.26 and Depression F32.9 [facility] [id number] [place] [address] 49653- 3980 Nov, Herniation of intervertebral disc between L4 and L5 M51.26 and IBS (irritable bowel syndrome) K58.9 [facility], [place] [id number] [place] [address] 13367- 7270 Oct, [facility] [id number] [place] [address] 41850- 4553 Aug, Physical exam Z00.00 ; IBS (irritable bowel syndrome) K58.9 ; Depression F32.9 and Herniation of intervertebral disc between L4 and L5 M51.26 [facility], [place] [id number] [place] [address] 08234- 6972 Aug, Depression F32.9 [facility], [place] [id number] [place] [address] 78738- 8271 Jul, [facility], [place] [id number] [place] [address] 98600- 8954 Jun, IBS (irritable bowel syndrome) K58.9 ; Depression F32.9 ; Herniation of intervertebral disc between L4 and L5 M51.26 and Bilateral headaches R51 [facility], [place] [id number] [place] [address] 59872- 0087 March, Chronic pain G89.29 [facility], [place] [id number] [place] [address] 20035- 3560 Jan, Chronic pain G89.29 [facility], [place] [id number] [address] Jan, [facility], [place] [id number] [place] [address] 85267- 7923 Jan, [facility], [place] [id number] [place] [address] 39634- 1360 Dec, IBS (irritable bowel syndrome) K58.9 ; Depression F32.9 and Herniation of intervertebral disc between L4 and L5 M51.26 [facility], [place] [id number] [address]64 Dec, [facility], [place] [id number] [place] [address] 61227- 4405 Dec, [facility], [place] [id number] [place] [address] 99330- 1916 Dec, [facility], [place] [id number] [place] [address] 37962- 8121 Dec, [facility], [place] [id number] [place] [address] 56093- 6687 Nov, [facility], [place] [id number] [place] [address] 28426- 5905 Nov, [facility], [place] [id number] [place] [address] 87051- 9561 Nov, [facility], [place] [id number] [place] [address] 10771- 7583 Nov, Heavy tobacco smoker >10 cigarettes per day F17.210 [facility], [place] [address] [place] [address]- 3994 Nov, Chronic pain G89.29 [facility], [place] [id number] [place] [address] 38344- 4370 08 Nov, 2015 [facility], [place] [id number] [place] [address] 08971- 0936 Oct, [facility], [place] [id number] [place] [address] 40762- 8492 Oct, [facility], [place] [id number] [place] [address] 29276- 7559 Oct, Pilonidal cyst without mention of abscess 685.1 ; IBS ( irritable bowel syndrome) K58.9 ; Rectal irritation K62.89 and Depression F32.9 [facility], [place] [address] 35615- 8305 Oct, [facility], [place] [id number] [place] [address] 37588- 6851 Sep, [facility], [place] [id number] [place] [address] 71395- 2043 16 Sep, 2015 [facility], [place] [id number] [place] [address] 95890- 9984 Sep, IBS (irritable bowel syndrome) K58.9 and Rectal irritation K62.89 [facility], [place] [id number] [place] [address] 41945- 0999 14 Jan, 2015 [facility], [place] [id number] [place] [address] 47991- 4269 Jan, [facility], [place] [id number] [place] [address] 44483- 3249 Dec, [facility], [place] [id number] [place] [address] 88933- 2562 Dec, [facility], [place] [id number] [place] [address] 98443- 8623 Dec, [facility], [place] [id number] [place] [address] 11965- 3540 Nov, [facility], [place] [address] [facility] [id number] [address]- 2478 Aug, IMMUNIZATIONS No Known Immunizations SOCIAL HISTORY Never Assessed REASON FOR VISIT Controlled Med Refill-tramadol PLAN OF CARE VITAL SIGNS MEDICATIONS Medication [...]
--- OUTSIDE RECORDS SUMMARY | 2018-08-14 05:28 | XMS REPORT ---
Author Author KIERRA ENGLISH [facility] Address [address] [place] [address] Care Team Providers Care Chrome Tanner Name Role Phone KIERRA ENGLISH Unavailable PROBLEMS Type Condition ICD9-CM Code NLT52-HO Code Onset Dates Condition Status SNOMED Code Problem Tobacco dependence F17.200 Active 41871019 Problem Chronic pain G89.29 Active 21056277 Problem Bilateral headaches R51 Active 368996525 Problem IBS (irritable bowel syndrome) K58.9 Active 80268212 Problem Rectal irritation K62.89 Active 08380716 Problem Herniation of intervertebral disc between L4 and L5 M51.26 Active 067407309 Problem Depression F32.9 Active 15126906 ALLERGIES No Information ENCOUNTERS Encounter Location Date Diagnosis [facility] [address] 39512- 1778 Jan, Chronic pain G89.29 and IBS (irritable bowel syndrome) K58.9 [facility] [address] 37801- 7613 Dec, Chronic pain G89.29 [facility] [id number] [place] [address] 56768- 0959 Dec, Chronic pain G89.29 [facility] [address] 24050- 8183 Dec, [facility] [address] 04363- 1727 15 Dec, 2017 Chronic pain G89.29 [facility] [address] 71282- 4776 Nov, Chronic pain G89.29 [facility] [address] 38651- 7760 Nov, [facility] [id number] [place] [address] 54920- 5684 Nov, IBS (irritable bowel syndrome) K58.9 ; Rectal irritation K62.89 and Chronic pain G89.29 [facility] [id number] [place] [address] 76833- 0795 Oct, Chronic pain G89.29 and IBS (irritable bowel syndrome) K58.9 [facility] [address] 71833- 5010 Sep, Chronic pain G89.29 and Fungal infection B49 [facility] [address] 14307- 8406 Sep, Chronic pain G89.29 [facility] [id number] [place] [address] 55220- 6690 Aug, Chronic pain G89.29 [facility] [address] 19867- 0665 Jul, Chronic pain G89.29 [facility] [address] 07742- 6232 Jun, Chronic pain G89.29 [facility] [id number] [place] [address] 64963- 8170 May, Herniation of intervertebral disc between L4 and L5 M51.26 and Over weight E66.3 [facility] [id number] [place] [address] 23170- 9529 Apr, Over weight E66.3 [facility] [address] 62044- 8050 Apr, IBS (irritable bowel syndrome) K58.9 ; Depression F32.9 ; Herniation of intervertebral disc between L4 and L5 M51.26 and Bilateral headaches R51 [facility] [id number] [place] [address] 07214- 1608 Apr, [facility] [id number] [place] [address] 08706- 1816 Apr, [facility] [address] 39832- 2786 Dec, Herniation of intervertebral disc between L4 and L5 M51.26 and Depression F32.9 [facility] [address] 89529- 3705 Nov, Herniation of intervertebral disc between L4 and L5 M51.26 and IBS (irritable bowel syndrome) K58.9 [facility] [id number] [place] [address] 14628- 2601 Oct, [facility] [address] 18010- 9886 Aug, Physical exam Z00.00 ; IBS (irritable bowel syndrome) K58.9 ; Depression F32.9 and Herniation of intervertebral disc between L4 and L5 M51.26 [facility] [id number] [place] [address] 54081- 1400 Aug, Depression F32.9 [facility] [address] 59021- 8869 Jul, [facility] [id number] [place] [address] 47488- 1557 Jun, IBS (irritable bowel syndrome) K58.9 ; Depression F32.9 ; Herniation of intervertebral disc between L4 and L5 M51.26 and Bilateral headaches R51 [facility] [id number] [place] [address] 43170- 9765 March, Chronic pain G89.29 [facility] [address] 61861- 2711 Jan, Chronic pain G89.29 [facility] [id number] [place] [address] 73176- 0670 Jan, [facility] [address] 36598- 8380 Jan, [facility] [address] [address]- 9529 Dec, IBS (irritable bowel syndrome) K58.9 ; Depression F32.9 and Herniation of intervertebral disc between L4 and L5 M51.26 [facility] [id number] [address]- 4524 Dec, [facility] [id number] [place] [address] 79911- 1462 Dec, [facility] [id number] [place] [address] 22776- 4165 Dec, [facility] [id number] [place] [address] 223437- 7111 Dec, [facility] [id number] [place] [address] 65791- 8726 Nov, [facility] [id number] [place] [address] 91837- 0786 Nov, [facility] [id number] [place] [address] 76864- 9968 Nov, [facility] [id number] [place] [address] 20529- 2948 Nov, Heavy tobacco smoker >10 cigarettes per day F17.210 [facility] [id number] [place] [address] 16902- 5800 Nov, Chronic pain G89.29 [facility] [id number] [address]- 7843 Nov, [facility] [id number] [place] [address] 09959- 5983 Oct, [facility] [id number] [place] [address] 97649- 1338 Oct, [facility] [id number] [place] [address] 92988- 1214 Oct, Pilonidal cyst without mention of abscess 685.1 ; IBS ( irritable bowel syndrome) K58.9 ; Rectal irritation K62.89 and Depression F32.9 [facility] [id number] [place] [address] 37750- 8711 Oct, [facility] [id number] [place] [address] 02941- 2058 Sep, [facility] [address] 00447- 0320 Sep, [facility] [address] 992097- 7311 Sep, IBS (irritable bowel syndrome) K58.9 and Rectal irritation K62.89 [facility] [id number] [place] [address] 26846- 5622 Jan, [facility] [address] 99098- 0911 Jan, [facility] [id number] [place] [address] 37205- 9967 Dec, [facility] [id number] [place] [address] 12639- 9576 Dec, [facility] [id number] [place] [address] 85736- 1263 Dec, [facility] [id number] [place] [address] 18095- 0575 Nov, [facility] [id number] [place] [address] 17414- 5183 Aug, IMMUNIZATIONS No Known Immunizations SOCIAL HISTORY Never Assessed REASON FOR VISIT Controlled Med Refill PLAN OF CARE VITAL SIGNS MEDICATIONS Medication Instructions Dosage Frequency Start Date End Date Duration Status Tramadol HCl 50 mg Orally 3 times a day 1 tablet as needed 8h 1 Oct, 2017 28 days Active RESULTS No Results PROCEDURES No Known procedures INSTRUCTIONS MEDICATIONS ADMINISTERED No Known Medications MEDICAL (GENERAL) HISTORY Type Description Date Medical History Irritable bowel syndrome without diarrhea Medical History Hypertension Surgical History bilat knee replacement 2008 Surgical History anal fissure 2006 Surgical History appendectomy 2006 Surgical History inguinal hernia repair 1988
--- OUTSIDE RECORDS SUMMARY | 2018-08-14 05:29 | XMS REPORT ---
Author Author ALYSON CARMEN [facility] Address [address] [place] [address] Care Team Providers Care Pediatric Physical Therapy Assistant Name Role Phone ALYSON CARMEN Unavailable PROBLEMS Type Condition ICD9-CM Code PBC45-EY Code Onset Dates Condition Status SNOMED Code Problem Tobacco dependence F17.200 Active 55406294 Problem Chronic pain G89.29 Active 53281866 Problem Bilateral headaches R51 Active 299086691 Problem IBS (irritable bowel syndrome) K58.9 Active 53703825 Problem Rectal irritation K62.89 Active 17123161 Problem Herniation of intervertebral disc between L4 and L5 M51.26 Active 111160454 Problem Depression F32.9 Active 65555764 ALLERGIES No Information ENCOUNTERS Encounter Location Date Diagnosis [facility] [address] [address] May, [facility] [address] [address]- [address] Apr, Chronic pain G89.29 [facility] [address] [address]- [address] March, Chronic pain G89.29 [facility] [address] [address]- 6029 Jan, Chronic pain G89.29 and IBS (irritable bowel syndrome) K58.9 [facility] [id number] [place] [address] 96859- 8739 Dec, Chronic pain G89.29 [facility] [address] [address]- 6681 Dec, Chronic pain G89.29 [facility] [address] 42[address]- 6057 Dec, [facility] [id number] [place] [address] 86855- 9071 Dec, Chronic pain G89.29 [facility] [id number] [place] [address] 96338- 5161 Nov, Chronic pain G89.29 [facility] [id number] [place] [address] 03796- 9993 Nov, [facility] [id number] [place] [address] 88581- 1869 Nov, IBS (irritable bowel syndrome) K58.9 ; Rectal irritation K62.89 and Chronic pain G89.29 [facility] [id number] [place] [address] 46472- 3472 Oct, Chronic pain G89.29 and IBS (irritable bowel syndrome) K58.9 [facility] [id number] [place] [address] 60129- 7789 Sep, Chronic pain G89.29 and Fungal infection B49 [facility] [id number] [place] [address] 59991- 0872 Sep, Chronic pain G89.29 [facility] [id number] [place] [address] 43020- 6751 05 Aug, 2017 Chronic pain G89.29 [facility] [id number] [place] [address] 58309- 2238 05 Jul, 2017 Chronic pain G89.29 [facility] [id number] [place] [address] 48559- 4754 Jun, Chronic pain G89.29 [facility] [id number] [place] [address] 42677- 0933 May, Herniation of intervertebral disc between L4 and L5 M51.26 and Over weight E66.3 [facility] [id number] [place] [address] 83705- 2237 Apr, Over weight E66.3 [facility] [id number] [place] [address] 68012- 4728 23 Apr, 2017 IBS (irritable bowel syndrome) K58.9 ; Depression F32.9 ; Herniation of intervertebral disc between L4 and L5 M51.26 and Bilateral headaches R51 [facility] [id number] [place] [address] 04446- 3661 Apr, [facility] [address] 61577- 6422 Apr, [facility] [id number] [place] [address] 23217- 2904 Dec, Herniation of intervertebral disc between L4 and L5 M51.26 and Depression F32.9 [facility] [id number] [place] [address] 54326- 1518 Nov, Herniation of intervertebral disc between L4 and L5 M51.26 and IBS (irritable bowel syndrome) K58.9 [facility] [id number] [place] [address] 14767- 2209 Oct, [facility] [id number] [place] [address] 93003- 8141 Aug, Physical exam Z00.00 ; IBS (irritable bowel syndrome) K58.9 ; Depression F32.9 and Herniation of intervertebral disc between L4 and L5 M51.26 [facility] [id number] [place] [address] 30433- 1570 Aug, Depression F32.9 [facility] [id number] [place] [address] 38828- 7410 Jul, [facility] [id number] [place] [address] 22005- 7067 Jun, IBS (irritable bowel syndrome) K58.9 ; Depression F32.9 ; Herniation of intervertebral disc between L4 and L5 M51.26 and Bilateral headaches R51 [facility] [id number] [place] [address] 64725- 0290 March, Chronic pain G89.29 [facility] [id number] [place] [address] 64531- 8067 Jan, Chronic pain G89.29 [facility] [id number] [address] Jan, [facility] [id number] [place] [address] 67435- 4358 Jan, [facility] [id number] [place] [address] 28854- 8307 Dec, IBS (irritable bowel syndrome) K58.9 ; Depression F32.9 and Herniation of intervertebral disc between L4 and L5 M51.26 [facility] [id number] [address] Dec, [facility] [id number] [place] [address] 03059- 3355 Dec, [facility] [id number] [place] [address] 61702- 2095 Dec, [facility] [id number] [place] [address] 80067- 5492 Dec, [facility] [id number] [place] [address] 22776- 6346 Nov, [facility] [id number] [place] [address] 00254- 0228 Nov, [facility] [id number] [place] [address] 41404- 7393 Nov, [facility] [id number] [place] [address] 89990- 1536 Nov, Heavy tobacco smoker >10 cigarettes per day F17.210 [facility] [address] [address] 0368 Nov, Chronic pain G89.29 [facility] [id number] [place] [address] 26117- 4630 08 Nov, 2015 [facility] [id number] [place] [address] 75818- 1311 Oct, [facility] [id number] [place] [address] 11676- 4058 Oct, [facility] [id number] [place] [address] 61621- 7760 Oct, Pilonidal cyst without mention of abscess 685.1 ; IBS ( irritable bowel syndrome) K58.9 ; Rectal irritation K62.89 and Depression F32.9 [facility] [address] 71890- 8317 Oct, [facility] [id number] [place] [address] 80473- 1402 Sep, [facility] [id number] [place] [address] 73276- 0886 16 Sep, 2015 [facility] [id number] [place] [address] 81468- 5807 Sep, IBS (irritable bowel syndrome) K58.9 and Rectal irritation K62.89 [facility] [id number] [place] [address] 79181- 0810 14 Jan, 2015 [facility] [id number] [place] [address] 61432- 9635 Jan, [facility] [id number] [place] [address] 62592- 0250 Dec, [facility] [id number] [place] [address] 14098- 7670 Dec, [facility] [id number] [place] [address] 10221- 1895 Dec, [facility] [id number] [place] [address] 93812- 4264 Nov, [facility] [address] [facility] [id number] [place] [address]- 8352 Aug, IMMUNIZATIONS No Known Immunizations SOCIAL HISTORY Never Assessed REASON FOR VISIT Controlled Med Refill-due 12/01/17 PLAN OF CARE VITAL SIGNS MEDICATIONS Medication [...]
--- OUTSIDE RECORDS SUMMARY | 2018-08-14 05:29 | XMS REPORT ---
Author Author ALYSON CARMEN [facility] Address [address] [place] [address] Care Team Providers Care Salmon Gillnet Vessel Operator Name Role Phone ALYSON CARMEN Unavailable PROBLEMS Type Condition ICD9-CM Code DOR96-TI Code Onset Dates Condition Status SNOMED Code Problem Tobacco dependence F17.200 Active 66543870 Problem Chronic pain G89.29 Active 90112878 Problem Bilateral headaches R51 Active 475003984 Problem IBS (irritable bowel syndrome) K58.9 Active 91629590 Problem Rectal irritation K62.89 Active 46305574 Problem Herniation of intervertebral disc between L4 and L5 M51.26 Active 071196369 Problem Depression F32.9 Active 43148845 ALLERGIES No Information ENCOUNTERS Encounter Location Date Diagnosis [facility] [address] [address]- [address] May, [facility] [address] [address]- 2020 Apr, Chronic pain G89.29 [facility] [address] 04307- 6151 March, Chronic pain G89.29 [facility] [address] 31403- 5227 Jan, Chronic pain G89.29 and IBS (irritable bowel syndrome) K58.9 [facility] [id number] [place] [address] 10666- 4419 Dec, Chronic pain G89.29 [facility] [address] 92469- 5639 Dec, Chronic pain G89.29 [facility] [address] 59337- 9548 Dec, [facility] [address] [place] [address] 84772- 0254 Dec, Chronic pain G89.29 [facility] [id number] [place] [address] 38032- 7896 Nov, Chronic pain G89.29 [facility] [id number] [place] [address] 88789- 3113 Nov, [facility] [id number] [place] [address] 21429- 7629 Nov, IBS (irritable bowel syndrome) K58.9 ; Rectal irritation K62.89 and Chronic pain G89.29 [facility] [id number] [place] [address] 72459- 0478 Oct, Chronic pain G89.29 and IBS (irritable bowel syndrome) K58.9 [facility] [id number] [place] [address] 29950- 9508 Sep, Chronic pain G89.29 and Fungal infection B49 [facility] [id number] [place] [address] 26376- 2350 Sep, Chronic pain G89.29 [facility] [id number] [place] [address] 15070- 3413 05 Aug, 2017 Chronic pain G89.29 [facility] [id number] [place] [address] 05882- 2342 05 Jul, 2017 Chronic pain G89.29 [facility] [id number] [place] [address] 39031- 7100 Jun, Chronic pain G89.29 [facility] [id number] [place] [address] 32828- 0660 May, Herniation of intervertebral disc between L4 and L5 M51.26 and Over weight E66.3 [facility] [id number] [place] [address] 65341- 4763 Apr, Over weight E66.3 [facility] [id number] [place] [address] 24656- 8358 23 Apr, 2017 IBS (irritable bowel syndrome) K58.9 ; Depression F32.9 ; Herniation of intervertebral disc between L4 and L5 M51.26 and Bilateral headaches R51 [facility] [id number] [place] [address] 17574- 2952 Apr, [facility] [address] 24261- 1506 Apr, [facility] [id number] [place] [address] 70289- 4051 Dec, Herniation of intervertebral disc between L4 and L5 M51.26 and Depression F32.9 [facility] [id number] [place] [address] 31139- 8564 Nov, Herniation of intervertebral disc between L4 and L5 M51.26 and IBS (irritable bowel syndrome) K58.9 [facility] [id number] [place] [address] 08473- 7702 Oct, [facility] [id number] [place] [address] 00187- 3661 Aug, Physical exam Z00.00 ; IBS (irritable bowel syndrome) K58.9 ; Depression F32.9 and Herniation of intervertebral disc between L4 and L5 M51.26 [facility] [id number] [place] [address] 51613- 0954 Aug, Depression F32.9 [facility] [id number] [place] [address] 82426- 2465 Jul, [facility] [id number] [place] [address] 15286- 6051 Jun, IBS (irritable bowel syndrome) K58.9 ; Depression F32.9 ; Herniation of intervertebral disc between L4 and L5 M51.26 and Bilateral headaches R51 [facility] [id number] [place] [address] 85787- 8931 March, Chronic pain G89.29 [facility] [id number] [place] [address] 79413- 1045 Jan, Chronic pain G89.29 [facility] [id number] [address]- 2332 Jan, [facility] [id number] [place] [address] 57886- 5540 Jan, [facility] [id number] [place] [address] 33793- 6848 Dec, IBS (irritable bowel syndrome) K58.9 ; Depression F32.9 and Herniation of intervertebral disc between L4 and L5 M51.26 [facility] [id number] [address]- 9829 Dec, [facility] [id number] [place] [address] 04798- 6561 Dec, [facility] [id number] [place] [address] 20066- 8850 Dec, [facility] [id number] [place] [address] 04825- 9929 Dec, [facility] [address] [place] [address] 97302- 5339 Nov, [facility] [id number] [place] [address] 61576- 1437 Nov, [facility] [address] [place] [address] 13680- 2588 Nov, [facility] [id number] [place] [address] 09832- 9656 Nov, Heavy tobacco smoker >10 cigarettes per day F17.210 [facility] [address] [address]- 6730 Nov, Chronic pain G89.29 [facility] [id number] [place] [address] 66181- 1663 08 Nov, 2015 [facility] [id number] [place] [address] 15445- 1475 Oct, [facility] [id number] [place] [address] 06188- 3657 Oct, [facility] [id number] [place] [address] 33394- 9767 Oct, Pilonidal cyst without mention of abscess 685.1 ; IBS ( irritable bowel syndrome) K58.9 ; Rectal irritation K62.89 and Depression F32.9 [facility] [address] 21657- 3833 Oct, [facility] [id number] [place] [address] 85596- 3101 Sep, [facility] [id number] [place] [address] 80599- 5260 16 Sep, 2015 [facility] [id number] [place] [address] 69785- 8774 Sep, IBS (irritable bowel syndrome) K58.9 and Rectal irritation K62.89 [facility] [id number] [place] [address] 83409- 5181 14 Jan, 2015 [facility] [id number] [place] [address] 68971- 5483 Jan, [facility] [id number] [place] [address] 94392- 6426 Dec, [facility] [id number] [place] [address] 45918- 9626 Dec, [facility] [id number] [place] [address] 11254- 0833 Dec, [facility] [id number] [place] [address] 82601- 2152 Nov, [facility] [address] [facility] [id number] [place] [address]- [address]71 Aug, IMMUNIZATIONS No Known Immunizations SOCIAL HISTORY Never Assessed REASON FOR VISIT Tamiflu PLAN OF CARE VITAL SIGNS MEDICATIONS Medication Instructions Dosage Frequency Start Date End Date Duration Status Tamiflu 75 MG Orally Twice a day 1 capsule 12h Nov, 5 day(s) Active RESULTS No Results PROCEDURES No Known procedures INSTRUCTIONS MEDICATIONS ADMINISTERED No Known Medications MEDICAL (GENERAL) HISTORY Type Description Date Medical History Irritable bowel syndrome without diarrhea Medical History Hypertension Surgical History bilat knee replacement 2008 Surgical History anal fissure 2006 Surgical History appendectomy 2006 Surgical History inguinal hernia repair 1988
--- OUTSIDE RECORDS SUMMARY | 2018-08-14 05:29 | XMS REPORT ---
Author Author ALYSON CARMEN [facility] Address [address] [place] [address] Care Team Providers Care Cnc Supervisor Name Role Phone ALYSON CARMEN Unavailable PROBLEMS Type Condition ICD9-CM Code YLI91-NX Code Onset Dates Condition Status SNOMED Code Problem Tobacco dependence F17.200 Active 88291207 Problem Chronic pain G89.29 Active 90609027 Problem Bilateral headaches R51 Active 364984645 Problem IBS (irritable bowel syndrome) K58.9 Active 44663246 Problem Rectal irritation K62.89 Active 04089908 Problem Herniation of intervertebral disc between L4 and L5 M51.26 Active 975844772 Problem Depression F32.9 Active 27425082 ALLERGIES No Information ENCOUNTERS Encounter Location Date Diagnosis [facility] [id number] [place] [address] 04799- 1473 May, [facility] [address] 94313- 5276 March, Chronic pain G89.29 [facility] [id number] [place] [address] 27161- 9419 Jan, Chronic pain G89.29 and IBS (irritable bowel syndrome) K58.9 [facility] [id number] [place] [address] 57937- 3508 Dec, Chronic pain G89.29 [facility] [id number] [place] [address] 08066- 2195 Dec, Chronic pain G89.29 [facility] [id number] [place] [address] 63627- 5331 Dec, [facility] [id number] [place] [address] 47376- 2264 Dec, Chronic pain G89.29 [facility] [id number] [place] [address] 96600- 7001 Nov, Chronic pain G89.29 [facility] [id number] [place] [address] 67658- 5260 Nov, [facility] [id number] [place] [address] 93654- 0464 Nov, IBS (irritable bowel syndrome) K58.9 ; Rectal irritation K62.89 and Chronic pain G89.29 [facility] [id number] [place] [address] 81544- 7501 Oct, Chronic pain G89.29 and IBS (irritable bowel syndrome) K58.9 [facility] [id number] [place] [address] 43277- 9000 Sep, Chronic pain G89.29 and Fungal infection B49 [facility] [id number] [place] [address] 80454- 4529 Sep, Chronic pain G89.29 [facility] [id number] [place] [address] 68610- 8261 Aug, Chronic pain G89.29 [facility] [id number] [place] [address] 71754- 5214 05 Jul, 2017 Chronic pain G89.29 [facility] [id number] [place] [address] 68583- 6274 Jun, Chronic pain G89.29 [facility] [id number] [place] [address] 63222- 4171 May, Herniation of intervertebral disc between L4 and L5 M51.26 and Over weight E66.3 [facility] [id number] [place] [address] 31051- 6632 Apr, Over weight E66.3 [facility] [id number] [place] [address] 16154- 6523 Apr, IBS (irritable bowel syndrome) K58.9 ; Depression F32.9 ; Herniation of intervertebral disc between L4 and L5 M51.26 and Bilateral headaches R51 [facility] [id number] [place] [address] 59701- 1493 02 Apr, 2017 [facility] [id number] [place] [address] 91437- 7253 Apr, [facility] [id number] [place] [address] 11481- 9679 Dec, Herniation of intervertebral disc between L4 and L5 M51.26 and Depression F32.9 [place] [address] 51766- 2933 Nov, Herniation of intervertebral disc between L4 and L5 M51.26 and IBS (irritable bowel syndrome) K58.9 [place] [id number] [place] [address] 93238- 0988 Oct, [place] [address] 45202- 3139 Aug, Physical exam Z00.00 ; IBS (irritable bowel syndrome) K58.9 ; Depression F32.9 and Herniation of intervertebral disc between L4 and L5 M51.26 [place] [id number] [place] [address] 93435- 6614 Aug, Depression F32.9 [place] [id number] [place] [address] 30661- 9434 Jul, [place] [id number] [place] [address] 34538- 9848 Jun, IBS (irritable bowel syndrome) K58.9 ; Depression F32.9 ; Herniation of intervertebral disc between L4 and L5 M51.26 and Bilateral headaches R51 [facility] [id number] [place] [address] 18376- 5529 March, Chronic pain G89.29 [facility] [id number] [place] [address] 09864- 4591 Jan, Chronic pain G89.29 [facility] [id number] [place] [address] 77429- 3162 Jan, [facility] [id number] [place] [address] 56058- 3921 Jan, [facility] [id number] [place] [address] 40761- 5251 Dec, IBS (irritable bowel syndrome) K58.9 ; Depression F32.9 and Herniation of intervertebral disc between L4 and L5 M51.26 [facility] [id number] [place] [address] 00049- 2600 Dec, [facility] [id number] [place] [address] 20209- 9530 Dec, [facility] [id number] [place] [address] 18943- 4371 Dec, [facility] [id number] [place] [address] 81514- 0279 Dec, [facility] [id number] [place] [address] 88762- 3129 Nov, [facility] [id number] [place] [address] 28380- 6746 Nov, [facility] [id number] [place] [address] 81282- 0198 Nov, [facility] [id number] [place] [address] 23477- 8298 Nov, Heavy tobacco smoker >10 cigarettes per day F17.210 [facility] [id number] [place] [address] 68414- 2484 Nov, Chronic pain G89.29 [facility] [id number] [place] [address] 51856- 4881 Nov, [facility] [id number] [place] [address] 07115- 9114 Oct, [facility] [id number] [place] [address] 10523- 8868 Oct, [facility] [id number] [place] [address] 87937- 6284 Oct, Pilonidal cyst without mention of abscess 685.1 ; IBS ( irritable bowel syndrome) K58.9 ; Rectal irritation K62.89 and Depression F32.9 [facility] [id number] [place] [address] 17495- 5840 Oct, [facility] [id number] [place] [address] 93150- 6766 Sep, [facility] [id number] [place] [address] 67773- 7629 Sep, [facility] [id number] [place] [address] 81122- 7546 Sep, IBS (irritable bowel syndrome) K58.9 and Rectal irritation K62.89 [facility] [id number] [place] [address] 61639- 1087 Jan, [facility] [id number] [place] [address] 78151- 4683 Jan, [facility] [id number] [place] [address] 83012- 6206 Dec, [facility] [id number] [place] [address] 34048- 5085 Dec, [facility] [address] [address]- 8590 Dec, [facility] [id number] [place] [address] 66361- 4798 Nov, [facility] [address] [address]- 8027 Aug, IMMUNIZATIONS No Known Immunizations SOCIAL HISTORY [...]
--- OUTSIDE RECORDS SUMMARY | 2018-08-14 05:30 | XMS REPORT ---
Author Author PJ Funk Organization [facility] Address [address] [place] [address] Care Team Providers Care Can Intake Worker Name Role Phone PJ Funk Unavailable PROBLEMS Type Condition ICD9-CM Code PAN99-WL Code Onset Dates Condition Status SNOMED Code Problem Tobacco dependence F17.200 Active 94808788 Problem Chronic pain G89.29 Active 12010479 Problem Bilateral headaches R51 Active 607630312 Problem IBS (irritable bowel syndrome) K58.9 Active 02414929 Problem Rectal irritation K62.89 Active 48463528 Problem Herniation of intervertebral disc between L4 and L5 M51.26 Active 330442180 Problem Depression F32.9 Active 12736962 ALLERGIES No Information ENCOUNTERS Encounter Location Date Diagnosis [facility] [id number] [place] [address] 82187- 0247 Dec, Chronic pain G89.29 [facility] [id number] [place] [address] 81488- 9129 Dec, Chronic pain G89.29 [facility] [id number] [place] [address] 21461- 4160 Dec, [facility] [id number] [place] [address] 70056- 7731 15 Dec, 2017 Chronic pain G89.29 [facility] [id number] [place] [address] 20533- 1195 Nov, Chronic pain G89.29 [facility] [id number] [place] [address] 85436- 1644 Nov, [facility] [id number] [place] [address] 97403- 4302 Nov, IBS (irritable bowel syndrome) K58.9 ; Rectal irritation K62.89 and Chronic pain G89.29 [facility] [id number] [place] [address] 39093- 2966 Oct, Chronic pain G89.29 and IBS (irritable bowel syndrome) K58.9 [facility] [address] 08945- 6748 Sep, Chronic pain G89.29 and Fungal infection B49 [facility] [address] 12399- 7319 Sep, Chronic pain G89.29 [facility] [address] 46397- 2392 Aug, Chronic pain G89.29 [facility] [address] 68886- 9603 Jul, Chronic pain G89.29 [facility] [address] 84270- 8047 Jun, Chronic pain G89.29 [facility] [address] 14844- 3762 May, Herniation of intervertebral disc between L4 and L5 M51.26 and Over weight E66.3 [place] [address] 85797- 7477 Apr, Over weight E66.3 [facility] [address] 79932- 3687 Apr, IBS (irritable bowel syndrome) K58.9 ; Depression F32.9 ; Herniation of intervertebral disc between L4 and L5 M51.26 and Bilateral headaches R51 [facility] [address] 80944- 4197 Apr, [facility] [address] 65049- 2591 Apr, [facility] [address] [place] [address]- 9920 10 Dec, 2016 Herniation of intervertebral disc between L4 and L5 M51.26 and Depression F32.9 [facility] [address] 84716- 5992 Nov, Herniation of intervertebral disc between L4 and L5 M51.26 and IBS (irritable bowel syndrome) K58.9 [facility] [address] 90219- 8816 Oct, [facility] [address] 42104- 2955 Aug, Physical exam Z00.00 ; IBS (irritable bowel syndrome) K58.9 ; Depression F32.9 and Herniation of intervertebral disc between L4 and L5 M51.26 [place] [address] 78393- 2228 Aug, Depression F32.9 [facility] [address] 09541- 8642 Jul, [facility] [address] 07799- 1760 Jun, IBS (irritable bowel syndrome) K58.9 ; Depression F32.9 ; Herniation of intervertebral disc between L4 and L5 M51.26 and Bilateral headaches R51 [place] [id number] [place] [address] 79032- 3006 March, Chronic pain G89.29 [facility] [id number] [place] [address] 21864- 3877 Jan, Chronic pain G89.29 [facility] [address] 71058- 1374 Jan, [facility] [id number] [place] [address] 87695- 0214 Jan, [facility] [address] 75937- 1944 Dec, IBS (irritable bowel syndrome) K58.9 ; Depression F32.9 and Herniation of intervertebral disc between L4 and L5 M51.26 [facility] [id number] [place] [address] 36080- 1592 Dec, [facility] [id number] [place] [address] 68343- 4566 Dec, [facility] [id number] [place] [address] 48740- 5003 Dec, [facility] [id number] [place] [address] 40845- 4967 Dec, [facility] [id number] [place] [address] 06389- 9095 Nov, [facility] [id number] [place] [address] 92584- 6383 Nov, [facility] [id number] [place] [address] 12480- 4332 Nov, [facility] [id number] [place] [address] 50295- 3958 Nov, Heavy tobacco smoker >10 cigarettes per day F17.210 [facility] [id number] [place] [address] 54715- 8706 Nov, Chronic pain G89.29 [facility] [id number] [place] [address] 87861- 5068 Nov, [facility] [id number] [place] [address] 68961- 3178 Oct, [facility] [id number] [place] [address] 87091- 4853 Oct, [facility] [id number] [place] [address] 54803- 0271 Oct, Pilonidal cyst without mention of abscess 685.1 ; IBS ( irritable bowel syndrome) K58.9 ; Rectal irritation K62.89 and Depression F32.9 [facility] [address] [address]- 3483 Oct, [facility] [id number] [place] [address] 59717- 3604 Sep, [facility] [id number] [place] [address] 24187- 9612 Sep, [facility] [id number] [place] [address] 25995- 7822 Sep, IBS (irritable bowel syndrome) K58.9 and Rectal irritation K62.89 [facility] [id number] [place] [address] 73951- 2050 Jan, [facility] [id number] [place] [address] 26723- 2956 Jan, [facility] [id number] [place] [address] 05390- 5850 Dec, [facility] [id number] [place] [address] 77928- 1291 Dec, [facility] [id number] [place] [address] 10685- 4459 Dec, [facility] [id number] [place] [address] 62844- 6067 Nov, [facility] [id number] [place] [address] 80813- 2587 Aug, IMMUNIZATIONS No Known Immunizations SOCIAL HISTORY Never Assessed REASON FOR VISIT Refill request PLAN OF CARE VITAL SIGNS MEDICATIONS Medication Instructions Dosage Frequency Start Date End Date Duration Status Bentyl 20 MG Orally Four times a day 1 tablet 6h 30 Active Tramadol HCl 50 mg Orally [...]
--- OUTSIDE RECORDS SUMMARY | 2018-08-14 05:41 | XMS REPORT | Continuity of Care Document ---
Author Author [facility] Address Unknown Phone Unavailable Allergies Active Description Code Type Severity Reaction Onset Reported/Identified Relationship to Patient Clinical Status Yes CODEINE Drug Allergy N/A N/A Yes Codeine Drug Allergy 11/25/2012 Yes codeine [id number] Drug Allergy Unknown N/A 07/27/2018 Medications Medication Packaging Start Date Stop Date [...] 682.9 CELLULITIS AND ABSCESS OF UNSPECIFIED SITES 01/26/2018 TREVA MCFARLAND DO Ot Z01.818 ENCOUNTER FOR OTHER PREPROCEDURAL EXAMIN 01/26/2018 TREVA MCFARLAND DO Ot Z12.11 ENCOUNTER FOR SCREENING FOR MALIGNANT NE 02/05/2018 TREVA MCFARLAND DO Ot D12.5 BENIGN NEOPLASM OF SIGMOID COLON 02/05/2018 TREVA MCFARLAND DO Ot I10 ESSENTIAL (PRIMARY) HYPERTENSION 02/05/2018 TREVA MCFARLAND DO Ot K60.3 ANAL FISTULA 02/05/2018 TREVA MCFARLAND DO Ot K62.4 STENOSIS OF ANUS AND RECTUM 02/05/2018 TREVA MCFARLAND DO Ot K64.8 OTHER HEMORRHOIDS 02/05/2018 TREVA MCFARLAND DO Ot R19.7 DIARRHEA, UNSPECIFIED 02/05/2018 TREVA MCFARLAND DO Ot Z87.891 PERSONAL HISTORY OF NICOTINE DEPENDENCE 02/09/2018 TREVA MCFARLAND DO Ot D12.5 BENIGN NEOPLASM OF SIGMOID COLON 02/09/2018 TONOVALERIE DO, TREVA B Ot I10 ESSENTIAL (PRIMARY) HYPERTENSION 02/09/2018 BRUNA SAM, TREVA B Ot K60.3 ANAL FISTULA 02/09/2018 TONOVALERIE DO, TREVA B Ot K62.4 STENOSIS OF ANUS AND RECTUM 02/09/2018 BRUNA DO, TREAV B Ot K64.8 OTHER HEMORRHOIDS 02/09/2018 TONOVALERIE DO TREVA B Ot R19.7 DIARRHEA, UNSPECIFIED 02/09/2018 BRUNA DO TREVA B Ot Z87.891 PERSONAL HISTORY OF NICOTINE DEPENDENCE 02/10/2018 BRUNA DO TREVA B Ot D12.5 BENIGN NEOPLASM OF SIGMOID COLON 02/10/2018 BRUNA SAM TREVA B Ot I10 ESSENTIAL (PRIMARY) HYPERTENSION 02/10/2018 BRUNA DO TREVA B Ot K60.3 ANAL FISTULA 02/10/2018 BRUNA SAM TREVA B Ot K62.4 STENOSIS OF ANUS AND RECTUM 02/10/2018 NICHOLAS MCFARLAND DOIC B Ot K64.8 OTHER HEMORRHOIDS 02/10/2018 TONOVALERIE , TREVA B Ot R19.7 DIARRHEA, UNSPECIFIED 02/10/2018 BRUNA DO, TREVA B Ot Z87.891 PERSONAL HISTORY OF NICOTINE DEPENDENCE 03/01/2018 NICHOLAS MCFARLAND DOIC B Ot K59.00 CONSTIPATION, UNSPECIFIED 03/01/2018 BRUNA SAM TREVA B Ot K62.4 STENOSIS OF ANUS AND RECTUM 03/01/2018 BRUNA SAM TREVA B Ot K59.00 CONSTIPATION, UNSPECIFIED 03/01/2018 BRUNA SAM TREVA B Ot K62.4 STENOSIS OF ANUS AND RECTUM 03/24/2018 BRUNA SAM TREVA B Ot K59.00 CONSTIPATION, UNSPECIFIED 03/24/2018 BRUNA DO, TREVA B Ot K62.4 STENOSIS OF ANUS AND RECTUM 07/26/2018 NICHOLAS MCFARLAND DOIC B Ot Z01.818 ENCOUNTER FOR OTHER PREPROCEDURAL EXAMIN 07/27/2018 NICHOLAS MCFARLAND DOIC B Ot Z01.818 ENCOUNTER FOR OTHER PREPROCEDURAL EXAMIN 08/02/2018 NICHOLAS MCFARLAND DOIC B Ot Z01.818 ENCOUNTER FOR OTHER PREPROCEDURAL EXAMIN 08/04/2018 NICHOLAS MCFARLAND DOIC B Ot Z01.818 ENCOUNTER FOR OTHER PREPROCEDURAL EXAMIN Procedures Code Description Performed By Performed On Guilherme Sarmiento 11/25/2012 Results There is no data. Encounters ACCT No. Visit Date/Time Discharge Status Pt. Type Provider Facility Loc./Unit Complaint [id number] 12/13/2012 15:02:00 12/13/2012 23:59:59 CLS Outpatient HERBERT MONTOYA DO [id number] 11/25/2012 10:30:00 11/25/2012 23:59:59 CLS Outpatient [id number] 01/30/2016 10:55:49 Document Registration [id number] 01/30/2016 10:55:47 Document Registration [id number] 01/30/2016 10:55:45 Document Registration [id number] 01/30/2016 10:55:42 Document Registration [id number] 01/30/2016 10:55:41 Document Registration [id number] 01/30/2016 10:49:00 Document Registration [id number] 10/18/2015 06:22:08 Document Registration [id number] 12/17/2017 12:20:00 12/17/2017 23:59:59 CLS Outpatient HERBERT MONTOYA DO [facility] [id number] 07/30/2018 13:00:00 07/30/2018 23:59:59 CLS Preadmit TREVA MCFARLAND DO [facility] ENDO RECTAL THICKENING [id number] 07/27/2018 12:27:00 07/27/2018 23:59:59 CLS Outpatient TREVA MCFARLAND DO [facility] PREOP FLEX SIGMOIDOSCOPY [id number] 02/26/2018 11:22:00 02/26/2018 23:59:59 CLS Outpatient TREVA MCFARLAND DO [facility] RAD RECTAL STRICTURE [id number] 02/05/2018 11:24:00 02/05/2018 13:40:00 DIS Outpatient TREVA MCFARLAND DO [facility] ENDO RECTAL PAIN,HX POLYPS, DIARRHEA [id number] 01/26/2018 05:59:00 01/26/2018 16:07:00 DIS Outpatient TREVA MCFARLAND DO [facility] PREOP COLONOSCOPY
== END 2018-08-13 14:25 | disposition home or self-care (01) ==
LOC: ENDO 12:08
PROVIDERS: ATTEND Surgery
DX: K60.2 Anal fissure, unspecified (principal); K63.89 Other specified diseases of intestine; K62.4 Stenosis of anus and rectum; F17.210 Nicotine dependence, cigarettes, uncomplicated
CPT/HCPCS: 88305

== ENCOUNTER → 2019-02-24 | Outpatient (CLI) | payer OTHER ==
[~2019-02-24] MED LIST changes: +CIPR500S3 PO; +LISI2.5T PO; +METR500T PO
--- NOTE | 2019-02-24 10:16 | Diagnostic Imaging Report ---
INDICATION: Irritable bowel syndrome. Three views were obtained. FINDINGS: The lung bases are clear. Bowel gas pattern is nonspecific. No free air. There are no abnormal abdominal calcifications. IMPRESSION: Nonspecific bowel gas pattern. Dictated by: Dictated on workstation # [id number]
== END ==
LOC: RAD FS 09:58
PROVIDERS: ATTEND Physician Assistant
DX: K58.9 Irritable bowel syndrome, unspecified (principal)
CPT/HCPCS: 74018

== ENCOUNTER → 2019-06-23 | Outpatient (CLI) | payer OTHER ==
--- NOTE | 2019-06-23 22:40 | Diagnostic Imaging Report ---
EXAMINATION: Magnetic resonance imaging of the left shoulder without contrast. DATE: June 23, 2019. COMPARISON: None. HISTORY: 48-year-old male, left shoulder pain. Recent pulling injury. TECHNIQUE: Magnetic Resonance Imaging sequences were performed of the shoulder without contrast. FINDINGS: ROTATOR CUFF, LIGAMENTS, TENDONS, AND MUSCLES: There is a very small 3 mm wide interstitial tear involving the anterior margin of the infraspinatus tendon best illustrated on sagittal T2 fat saturation sequence image 4 and coronal T2 fat saturation sequence image 8. This tear measures 2-3 mm in medial to lateral dimension. There is supraspinatus tendinopathy. The remaining portions of the infraspinatus tendon are intact. The teres minor tendon is intact. The subscapularis tendon is intact. There is normal rotator cuff muscle bulk and signal. LONG HEAD OF BICEPS: The biceps labral attachment and long head of the biceps tendon is intact. The long head of the biceps tendon is normally positioned within the bicipital groove. GLENOHUMERAL JOINT: The humeral head is well positioned relative to the glenoid. There is a normal variant sub-labral sulcus well illustrated on coronal PD sequence image 12. There is a tear extending from approximately the 8-9 o'clock position of the mid posterior labrum to involve the posterior inferior labrum and extends near the 6-7 o'clock position of the inferior labrum. There is no associated paralabral cyst. The anterior labrum appears grossly intact. There is near full-thickness cartilage loss of the posterior aspect of the glenoid correlate with adjacent mild thinning of the cartilage of the humeral head. There is a trace to small glenohumeral joint effusion without prominent synovitis. ACROMIOCLAVICULAR JOINT: The acromioclavicular joint is normally aligned. The coracoclavicular and coracoacromial ligaments are intact. There are severe acromioclavicular degenerative changes with osteophytes extending approximately 6 mm below the joint margin. BONE: There is no os acromiale. There is degenerative related edema adjacent to the acromioclavicular joint. There is no acute fracture, bone contusion or evidence of osteonecrosis. BURSAE AND SOFT TISSUES: There is a small amount of fluid in the subacromial subdeltoid bursa consistent with bursitis and/or recent injection. IMPRESSION: 1. There is a 3 mm wide partial intrasubstance tear of the anterior margin of the infraspinatus tendon. Supraspinatus tendinopathy. No fatty muscle atrophy. 2. Severe acromioclavicular degenerative changes with 6 mm undersurface osteophytes. 3. Tear involving the mid and inferior aspect of the posterior labrum, as described above, without associated paralabral cyst. There is associated near full-thickness cartilage loss of the posterior glenoid and adjacent cartilage loss of the humeral head. Trace to small glenohumeral joint effusion. 4. No acute fracture, bone contusion or evidence of osteonecrosis. Dictated by: Dictated on workstation # [id number]
== END ==
LOC: RAD 13:09
PROVIDERS: ATTEND Nurse Practitioner Community Health
DX: S46.812A Strain of other muscles, fascia and tendons at shoulder and upper arm level, left arm, initial encounter (principal); M19.012 Primary osteoarthritis, left shoulder; M25.712 Osteophyte, left shoulder; S43.492A Other sprain of left shoulder joint, initial encounter; M24.112 Other articular cartilage disorders, left shoulder; M25.412 Effusion, left shoulder
CPT/HCPCS: 73221

== ENCOUNTER → 2021-01-03 | Outpatient (CLI) | payer OTHER ==
[~2021-01-03] MED LIST changes: -TRAM50TA2 PO; +TRM50T PO
--- NOTE | 2021-01-03 15:11 | Diagnostic Imaging Report ---
Indication: Right elbow pain. Comparison: None. Findings: 3 views of the right elbow demonstrate no fracture or dislocation. Minimal degenerative changes seen involving the articular surfaces. There is no joint effusion. No foreign body. Impression: No fracture or dislocation. Dictated by: Dictated on workstation # [id number]
== END ==
LOC: RAD 13:45
PROVIDERS: ATTEND Registered Nurse
DX: M25.521 Pain in right elbow (principal); W18.00XA Striking against unspecified object with subsequent fall, initial encounter
CPT/HCPCS: 73080

== ENCOUNTER 2022-07-16 05:40 | Outpatient (CLI) | payer OTHER ==
[~2022-07-16] VITALS: Ht 175.3 cm; Wt 103.0 kg
[~2022-07-16 05:40] MED LIST changes: +DICY20TA PO; -DICY20TA10 PO; -LISI2.5T PO; +LISI2.5T13 PO
[2022-07-16] MEDS ORDERED: BUPR-105 PO (10:12)
== END 2022-07-16 10:18 | disposition home or self-care (01) ==
LOC: PREOP 05:40
PROVIDERS: ATTEND Surgery
DX: Z01.818 Encounter for other preprocedural examination (principal)

== ENCOUNTER 2022-07-28 08:07 | Day surgery (SDC) | payer OTHER ==
[~2022-07-28] VITALS: Ht 175.3 cm; Wt 103.0 kg
[~2022-07-28 08:07] MED LIST changes: +BUPR-105 PO
[2022-07-28] MEDS ORDERED: LACTATED RINGERS 1,000 ML IV STA (08:12)
--- NOTE | 2022-07-28 08:25 | Progress Note-Pre Operative ---
Pre-Operative Progress Note Date of Available H&P: Jul 03, 2022 Date H&P Reviewed: Jul 28, 2022 Time H&P Reviewed: 08:24 History & Physical: H&P Reviewed, Patient Examed, No changes noted Pre-Operative Diagnosis: high CEA, screening colonoscopy TREVA MCFARLAND DO Jul 28, 2022 08:25
[2022-07-28 08:33] VITALS: BP 136/87
[2022-07-28] MEDS ORDERED: MIDAZOLAM 2 MG/2 ML (VERSED) VIAL ONE (09:30)
[2022-07-28] MEDS ORDERED: PROPOFOL INJECTION 50 ML IV ONE (09:31)
[2022-07-28 10:11] VITALS: BP 109/73
--- NOTE | 2022-07-28 10:11 | Progress Note-Post Operative ---
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 He was administered IV sedation by the GAS BOOSTER ENGINEER who then monitored his vitals the entire time, heart rate, blood pressure and pulse ox and the scope was inserted, pushed all the way to about 150 cm and pushed into the cecum, took a picture of appendiceal orifice and then slowly withdrew the scope insufflating to look circumferentially at the monte starting in the cecum and up the ascending colon. Found two polyps here, which I removed with hot biopsy. Continued to the hepatic flexure, then down the transverse colon, splenic flexure, into the descending colon down in the sigmoid and then into the rectal vault and retroflexed the scope. Took picture of the internal hemorrhoids. I also saw what looked like an opening for rectal fistula. I had seen two scars in the anal area which looked like fistula tracts. No obvious infection or acute inflammation. The patient tolerated the procedure. He was recovered in endoscopy suite. Recommended for repeat colonoscopy in 10 years. Anesthesia Type IV sedation by GAS BOOSTER ENGINEER Estimated Blood Loss Estimated blood loss (mL): scant Specimens/Packing Specimens Removed asc colon polyps TREVA MCFARLAND DO Jul 28, 2022 10:11
--- NOTE | 2022-07-28 10:12 | Endoscopy Discharge Instruct ---
Endo Procedure/Findings Findings 1.: Polyp 2.: Internal Hemorrhoids 3.: Other Findings (rectal fistula) Discharge Instructions - Activity: You might feel a little sleepy until tomorrow. This is due to the medicine you received to relax you. Until tomorrow, you should: NOT drive a car, operate machinery or power tools. NOT drink any alcoholic beverages. NOT make any important decisions or sign importortant papers. Do not return to work until tomorrow, unless otherwise instructed. Resume previous activities tomorrow. Diet: Start by taking liquids. If you tolerate liquids, advance to solid food. 1.: Colonscopy in 5 years Notify Physician - If you experience excessive bleeding, unusual abdominal pain, fever, or chest pain, contact your doctor immediately. TREVA MCFARLAND DO Jul 28, 2022 10:12
[2022-07-28 10:16] VITALS: BP 144/85
[2022-07-28 10:20] VITALS: BP 144/85
[2022-07-28 10:45] VITALS: BP 144/85
--- NOTE | 2022-07-28 13:02 | Anesthesia-General Post-Op ---
MAC Patient Condition Mental Status/LOC: Same as Preop Cardiovascular: Satisfactory Nausea/Vomiting: Absent Respiratory: Satisfactory Pain: Controlled Complications: Absent Post Op Complications Complications None Follow Up Care/Instructions Patient Instructions None needed. Anesthesiology Discharge Order Discharge Order Patient is doing well, no complaints, stable vital signs, no apparent adverse anesthesia problems. No complications reported per nursing. ROHAN TYLER CRNA Jul 28, 2022 13:02
== END 2022-07-28 10:46 | disposition home or self-care (01) ==
LOC: ENDO 08:07
PROVIDERS: ATTEND Surgery
DX: Z12.11 Encounter for screening for malignant neoplasm of colon (principal); D12.2 Benign neoplasm of ascending colon; K64.8 Other hemorrhoids; K60.4 Rectal fistula; F17.210 Nicotine dependence, cigarettes, uncomplicated; E66.9 Obesity, unspecified; Z68.33 Body mass index [BMI] 33.0-33.9, adult; R97.0 Elevated carcinoembryonic antigen [CEA]
CPT/HCPCS: 88305